=== PATIENT | male | born 1960 | race African-American/Black ===

== ENCOUNTER 2023-03-09 14:58 | Outpatient (AMB) | payer BC, SELFPAY ==
--- NOTE | 2023-03-09 15:04 | HO.NEPHOV_ITS ---
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 Accompanied by: Spouse Allergies Sulfa (Sulfonamide Antibiotics) Allergy (Verified 03/09/23 11:08) Hives lisinopril Allergy (Uncoded 03/09/23 11:08) Swelling Assessment & Plan Assessment & Plan (1) Essential (primary) hypertension: Code(s): I10 - Essential (primary) hypertension (2) Chronic kidney disease, stage 5: Code(s): N18.5 - Chronic kidney disease, stage 5 Orders: Orders PTHI Today I10 - Essential (primary) hypertension, N18.5 - Chronic kidney disease, stage 5 Vitamin D 25-OH Total Today I10 - Essential (primary) hypertension, N18.5 - Chronic kidney disease, stage 5 Phosphorus Today I10 - Essential (primary) hypertension, N18.5 - Chronic kidney disease, stage 5 Electrolytes Today I10 - Essential (primary) hypertension, N18.5 - Chronic kidney disease, stage 5 Blood Urea Nitrogen Today I10 - Essential (primary) hypertension, N18.5 - Ch ronic kidney disease, stage 5 Creatinine Today I10 - Essential (primary) hypertension, N18.5 - Chronic kidney disease, stage 5 Calcium Today I10 - Essential (primary) hypertension, N18.5 - Chronic kidney disease, stage 5 Complete Blood Count Auto Diff Today I10 - Essential (primary) hypertension, N18.5 - Chronic kidney disease, stage 5 Coding Level of Care Code Est Pt Level 5 (12349) Diagnoses Essential (primary) hypertension I10 Chronic kidney disease, stage 5 N18.5 [facility] Medical History (Updated 03/09/23 @ 15:52 by Vinnie Mckoy MD) Essential (primary) hypertension Chronic kidney disease, stage 5 Social History (Updated 03/09/23 @ 15:10 by Madison Brock MA) Alcohol intake: never Patient Tobacco Use Status: Never used Tobacco Use of substances other than those prescribed or required for medical reasons: No
[2023-03-09 15:05] VITALS: BP 150/80; PULSE 97; BMI 32.7
== END 2023-03-09 15:57 | disposition home or self-care (01) ==
PROVIDERS: PCP Internal Medicine; Visit Provider Internal Medicine Nephrology
DX: I12.0 Hypertensive chronic kidney disease with stage 5 chronic kidney disease or end stage renal disease (principal); N18.5 Chronic kidney disease, stage 5
CPT/HCPCS: 99215

== ENCOUNTER → 2023-03-09 14:58 | Outpatient (BNVA) | payer BC, SELFPAY | PROVIDERS: PCP Internal Medicine; Visit Provider Internal Medicine Nephrology ==

== ENCOUNTER 2023-08-22 10:57 | Outpatient (AMB) | payer BC, SELFPAY ==
[2023-08-22 11:21] VITALS: BP 130/84; BMI 28.7
--- NOTE | 2023-08-22 11:21 | HO.NEPHOV_ITS ---
Vital Signs 08/22/23 11:21 Height 6 ft Weight 211 lb 8 oz BMI 28.7 BP 130/84 Blood Pressure Location Lt brachial Position Sitting Intake Visit Reasons: Post Transplant/ Confirmed Supervisor Assembly Required: No Accompanied by: Spouse Allergies Sulfa (Sulfonamide Antibiotics) Allergy (Verified 09/05/23 09:54) Hives lisinopril Allergy (Uncoded 03/09/23 11:08) Swelling HPI Comments Details: I had the pleasure of seeing Bobo, accompanied by his who is now status post donor renal transplant on 05/12/2023. He had 0 panel reactive antibodies. Induction was done using Thymoglobulin. He had no delayed graft function and did not require renal replacement therapy. Postoperatively his renal ultrasound showed good flow and normal resistive indices. . Nuclear medicine scan showed a prompt flow to the kidney and findings were consistent with ATN. He had high blood pressure is postoperatively needing medications. He also developed shortness of breath and tachycardia with increasing abdominal distension postoperatively. Chest x-ray done at that time showed elevated right diaphragm concerning for either intra-abdominal or thoracic source. He underwent a CT chest abdomen and pelvis without IV contrast on 14 of May given his increasing oxygen requirements and tachycardia & it demonstrated a right hemidiaphragm elevation with some postsurgical inflammatory changes. He had positive Celine glabrata from the preservation fluid for which he was started on micafungin. He had a PICC line and received micafungin for 2 weeks posttransplant. CMV status of the donor was positive and he was positive as well. EBV status of the donor and recipient were positive. Hepatitis-C core antibody for the donor and recipient were negative. His BK virus PCR in the serum and urine were negative. His JJ stent postoperatively was removed on 06/19/2023. He had a prospera protocol on 08 of August which showed decreased risk for rejection. He also had a transplant biopsy on 26 of June for a creatinine of all than 2 which was negative for rejection. He has no history of DSA. He has been on Envarsus and mycophenolate. His Mycelex was discontinued on 06/01/2023 after he was started on ketoconazole. He remains on Bactrim and Valcyte which is going to be discontinued on 11/10/2023. He has lost a lot of weight but his weight is stabilizing. His appetite is poor but better. He does not have any tremor. He denies urinary symptoms, edema, tremor. He is compliant with his medications. COUNTS INCLUDE 234 BEDS AT THE [facility] Medical History (Updated 03/09/23 @ 15:52 by Vinnie Mckoy MD) Essential (primary) hypertension Chronic kidney disease, stage 5 Surgical History (Updated 09/05/23 @ 09:55 by Madison Brock MA) Kidney transplanted Social History Alcohol intake: never Patient Tobacco Use Status: Never used Tobacco Physical Exam Vital Signs: Last Vital Signs BP 130/84 08/22/23 11:21 BMI result Body Mass Index 28.7 Const General: comfortable and no acute distress Orientation/consciousness: patient oriented x3 HEENT Head: Yes normocephalic Mouth: Normal oral and palatal mucosa present Eyes EOM: EOMs intact bilaterally Neck Neck: Yes supple Resp Auscultation: clear to auscultation bilaterally Cardio Jugular venous distension: no JVD Rate: regular rate GI Palpation (GI): Soft to palpation Auscultation: normal bowel sounds General: Yes no CVA tenderness Back/Spine/Pelvis Back: no CVA tenderness Skin General skin exam: no rashes or lesions noted Neuro General: patient oriented x3 and moves all extremities Extrem General: Yes no pedal edema Results Reviewed Nephrology Results: Hgb 9.9 g/dl (14.0-18.0) L 08/31/23 WBC 1.8 X10*3/uL (4.8-10.8) L 08/31/23 Plt Count 243 X10*3/uL (160-400) 08/31/23 Sodium 140 mmol/L (135-145) 08/31/23 Potassium 4.6 mmol/L (3.3-5.1) 08/31/23 Chloride 111 mmol/L (96-108) H 08/31/23 Carbon Dioxide 25 mmol/L (22-29) 08/31/23 BUN 18 mg/dL (9-16) H 08/31/23 Creatinine 2.30 mg/dL (0.5-1.4) H 08/31/23 Calcium 9.7 mg/dL (8.4-10.2) 08/31/23 PTH Intact 84.6 pg/mL (8.7-77.1) H 08/31/23 Assessment & Plan Assessment & Plan (1) Essential (primary) hypertension: Code(s): I10 - Essential (primary) hypertension Category: Medical (2) Renal transplant recipient: Code(s): Z94.0 - Kidney transplant status Category: Surgical Plan His transplant graft function has been stable with the last serum creatinine being 2.8. He does not have any proteinuria. His DSA was negative. His transplant ultrasound did not show any hydronephrosis. Transplant biopsy done on 06/26/2023 showed no rejection. He is on Envarsus and Myfortic. He has BK negative. He is on standard prophylaxis. His blood pressure is at goal. He maintains good hydration. I did not make any medication changes today. Follow- up lab work ordered. Time spent during the patient visit, retrieving data and documentation 55 minutes. Answered all questions. Orders: Orders Calcium 08/22/23 I10 - Essential (primary) hypertension, Z94.0 - Kidney transplant status Tacrolimus Prograf 08/22/23 I10 - Essential (primary) hypertension, Z94.0 - Kidney transplant status Parathyroid Hormone Intact 08/22/23 I10 - Essential (primary) hypertension, Z94.0 - Kidney transplant status Complete Blood Count Auto Diff 08/22/23 I10 - Essential (primary) hypertension, Z94.0 - Kidney transplant status Aspartate Amino Transferase 08/22/23 I10 - Essential (primary) hypertension, Z94.0 - Kidney transplant status Electrolytes 08/22/23 I10 - Essential (primary) hypertension, Z94.0 - Kidney transplant status Blood Urea Nitrogen 08/22/23 I10 - Essential (primary) hypertension, Z94.0 - Kidney transplant status Creatinine 08/22/23 I10 - Essential (primary) hypertension, Z94.0 - Kidney transplant status Alanine Aminotransferase 08/22/23 I10 - Essential (primary) hypertension, Z94.0 - Kidney transplant status Coding Level of Care Code Est Pt Level 5 (10728) Diagnoses Essential (primary) hypertension I10 Renal transplant recipient Z94.0
== END 2023-08-22 12:11 | disposition home or self-care (01) ==
PROVIDERS: PCP Internal Medicine; Visit Provider Internal Medicine Nephrology
DX: I10 Essential (primary) hypertension (principal); Z94.0 Kidney transplant status
CPT/HCPCS: 99215

== ENCOUNTER → 2023-08-22 10:57 | Outpatient (BNVA) | payer BC, SELFPAY | PROVIDERS: PCP Internal Medicine; Visit Provider Internal Medicine Nephrology ==

== ENCOUNTER 2023-08-31 09:53 | Outpatient (REF) | payer BC, SELFPAY ==
[2023-08-31 16:57] LABS: Hematocrit 32.3 % (42.0-52.0); Hemoglobin 9.9 g/dl (14.0-18.0); Mean Corpuscular HGB Conc 30.7 g/dl (31.0-36.0); Mean Corpuscular Hemoglobin 25.8 pg (27.0-33.0); Mean Corpuscular Volume 84.3 fL (80.0-98.0); Mean Platelet Volume 10.1 fL (9.4-12.4); Platelet Count 243 X10*3/uL (160-400); Red Blood Count 3.83 X10*6/uL (4.60-5.80); Red Cell Distribution Width 13.8 % (11.0-16.0)
[2023-08-31 17:00] LABS: WBC ABN SCTR FOR CBC 1
[2023-08-31 17:06] LABS: Alanine Aminotransferase 16 U/L (0-40); Anion Gap 9 (12-20); Aspartate Amino Transferase 18 U/L (5-37); Blood Urea Nitrogen 18 mg/dL (9-16); Calcium 9.7 mg/dL (8.4-10.2); Carbon Dioxide 25 mmol/L (22-29); Chloride 111 mmol/L (96-108); Estimated Glomerular Filt Rate 29; Potassium 4.6 mmol/L (3.3-5.1); Sodium 140 mmol/L (135-145)
[2023-08-31 17:52] LABS: Parathyroid Hormone Intact 84.6 pg/mL (8.7-77.1)
[2023-08-31 18:20] LABS: Band Neutrophils Percent 2 % (3-5); Lymphocytes Percent Manual 10 % (20-40); Monocytes Percent Manual 20 % (2-11); Neutrophils Percent Manual 68 % (45-73); Ovalocytes 1+ (5-14) /OIF
[2023-08-31 18:21] LABS: Burr Cells 1+ (0-2) /OIF; Platelet Estimate NORMAL (NORMAL); Platelet Morphology Comment NORMAL; RBC Morphology NOTED; Schistocytes 1+ (0-2) /OIF
[2023-08-31 18:22] LABS: Lymphocytes Absolute Manual 0.2 X10*3/uL (1.2-4.9); Monocytes Absolute Manual 0.4 X10*3/uL (0.1-1.2); Neutrophils Absolute Manual 1.3 X10*3/uL (2.0-8.3); White Blood Count 1.8 X10*3/uL (4.8-10.8)
[2023-09-01 12:54] LABS: Tacrolimus Prograf 5.6 mcg/L
== END 2023-08-31 09:54 | disposition home or self-care (01) ==
LOC: HO.HKASLDS 09:53
PROVIDERS: Visit Provider Internal Medicine Nephrology
DX: I10 Essential (primary) hypertension (principal); Z94.0 Kidney transplant status
CPT/HCPCS: 36415; 80051; 80197; 82310; 82565; 83970; 84450; 84460; 84520; 85007; 85027

== ENCOUNTER 2023-09-05 09:34 | Outpatient (AMB) | payer BC, SELFPAY ==
[2023-09-05 09:51] VITALS: BP 130/88; PULSE 91; O2SAT 96; BMI 28.8
--- NOTE | 2023-09-05 09:51 | HO.NEPHOV ---
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 He had 0 panel reactive antibodies. Induction was done using Thymoglobulin. He had no delayed graft function and did not require renal replacement therapy. Postoperatively his renal ultrasound showed good flow and normal resistive indices. . Nuclear medicine scan showed a prompt flow to the kidney and findings were consistent with ATN. He had high blood pressure is postoperatively needing medications. He also developed shortness of breath and tachycardia with increasing abdominal distension postoperatively. Chest x-ray done at that time showed elevated right diaphragm concerning for either intra-abdominal or thoracic source. He underwent a CT chest abdomen and pelvis without IV contrast on 14 of May given his increasing oxygen requirements and tachycardia & it demonstrated a right hemidiaphragm elevation with some postsurgical inflammatory changes. He had positive Celine glabrata from the preservation fluid for which he was started on micafungin. He had a PICC line and received micafungin for 2 weeks posttransplant. CMV status of the donor was positive and he was positive as well. EBV status of the donor and recipient were positive. Hepatitis-C core antibody for the donor and recipient were negative. His BK virus PCR in the serum and urine were negative. His JJ stent postoperatively was removed on 06/19/2023. He had a prospera protocol on 08 of August which showed decreased risk for rejection. He also had a transplant biopsy on 26 of June for a creatinine of all than 2 which was negative for rejection. He has no history of DSA. He has been on Envarsus and mycophenolate. His Mycelex was discontinued on 06/01/2023 after he was started on ketoconazole. He remains on Bactrim and Valcyte which is going to be discontinued on 11/10/2023. He has lost a lot of weight but his weight is stabilizing. His appetite is poor but better. He does not have any tremor. He denies urinary symptoms, edema, tremor. He is compliant with his medications.His renal functions are improving. His appetite is better. [facility] Medical History (Updated 09/06/23 @ 10:24 by Vinnie Mckoy MD) Essential (primary) hypertension Chronic kidney disease, stage 5 Surgical History (Updated 09/05/23 @ 09:55 by Madison Brock MA) Kidney transplanted Social History Alcohol intake: never Patient Tobacco Use Status: Never used Tobacco Physical Exam Vital Signs: Last Vital Signs Pulse 91 09/05/23 09:51 BP 130/88 09/05/23 09:51 Pulse Ox 96 09/05/23 09:51 Oxygen Delivery Method Room Air 09/05/23 09:51 BMI result Body Mass Index 28.8 Const General: comfortable and no acute distress Orientation/consciousness: patient oriented x3 HEENT Head: Yes normocephalic Mouth: Normal oral and palatal mucosa present Eyes EOM: EOMs intact bilaterally Neck Neck: Yes supple Resp Auscultation: clear to auscultation bilaterally Cardio Jugular venous distension: no JVD Rate: regular rate GI Palpation (GI): Soft to palpation Auscultation: normal bowel sounds General: Yes no CVA tenderness Back/Spine/Pelvis Back: no CVA tenderness Skin General skin exam: no rashes or lesions noted Neuro General: patient oriented x3 and moves all extremities Extrem General: Yes no pedal edema Results Reviewed Nephrology Results: Hgb 9.9 g/dl (14.0-18.0) L 08/31/23 WBC 1.8 X10*3/uL (4.8-10.8) L 08/31/23 Plt Count 243 X10*3/uL (160-400) 08/31/23 Sodium 140 mmol/L (135-145) 08/31/23 Potassium 4.6 mmol/L (3.3-5.1) 08/31/23 Chloride 111 mmol/L (96-108) H 08/31/23 Carbon Dioxide 25 mmol/L (22-29) 08/31/23 BUN 18 mg/dL (9-16) H 08/31/23 Creatinine 2.30 mg/dL (0.5-1.4) H 08/31/23 Calcium 9.7 mg/dL (8.4-10.2) 08/31/23 PTH Intact 84.6 pg/mL (8.7-77.1) H 08/31/23 Assessment & Plan Assessment & Plan (1) Renal transplant recipient: Code(s): Z94.0 - Kidney transplant status Category: Medical (2) Essential (primary) hypertension: Code(s): I10 - Essential (primary) hypertension Category: Medical (3) CKD stage 3a, GFR 45-59 ml/min: Code(s): N18.31 - Chronic kidney disease, stage 3a Category: Medical Plan His transplant graft function has improved with the last serum creatinine being 2.3. He does not have any proteinuria. His DSA was negative. His transplant ultrasound did not show any hydronephrosis. Transplant biopsy done on 06/26/2023 showed no rejection. He is on Envarsus and Myfortic. He has BK negative. He is on standard prophylaxis. I increased his tacrolimus to 5 mg daily. His blood pressure is at goal. He maintains good hydration. I did not make any other medication changes today. Follow-up lab work ordered. Will need annual dermatology appointment. Answered all his and his 's questions Orders: Orders Tacrolimus Prograf 09/05/23 I10 - Essential (primary) hypertension, Z94.0 - Kidney transplant status Complete Blood Count Auto Diff 09/05/23 I10 - Essential (primary) hypertension, Z94.0 - Kidney transplant status Blood Urea Nitrogen 09/05/23 I10 - Essential (primary) hypertension, Z94.0 - Kidney transplant status Calcium 09/05/23 I10 - Essential (primary) hypertension, Z94.0 - Kidney transplant status Creatinine 09/05/23 I10 - Essential (primary) hypertension, Z94.0 - Kidney transplant status Electrolytes 09/05/23 I10 - Essential (primary) hypertension, Z94.0 - Kidney transplant status Phosphorus 09/05/23 I10 - Essential (primary) hypertension, Z94.0 - Kidney transplant status Magnesium 09/05/23 I10 - Essential (primary) hypertension, Z94.0 - Kidney transplant status Coding Level of Care Code Est Pt Level 4 (81991) Diagnoses Renal transplant recipient Z94.0 Essential (primary) hypertension I10 CKD stage 3a, GFR 45-59 ml/min N18.31
== END 2023-09-05 10:27 | disposition home or self-care (01) ==
PROVIDERS: PCP Internal Medicine; Visit Provider Internal Medicine Nephrology
DX: Z94.0 Kidney transplant status (principal); I10 Essential (primary) hypertension; N18.31 Chronic kidney disease, stage 3a
CPT/HCPCS: 99214

== ENCOUNTER → 2023-09-05 09:34 | Outpatient (BNVA) | payer BC, SELFPAY | PROVIDERS: PCP Internal Medicine; Visit Provider Internal Medicine Nephrology ==

== ENCOUNTER 2023-09-12 09:31 | Outpatient (REF) | payer BC, SELFPAY ==
[2023-09-12 11:55] LABS: Hematocrit 31.7 % (42.0-52.0); Hemoglobin 9.7 g/dl (14.0-18.0); Mean Corpuscular HGB Conc 30.6 g/dl (31.0-36.0); Mean Corpuscular Hemoglobin 25.3 pg (27.0-33.0); Mean Corpuscular Volume 82.8 fL (80.0-98.0); Mean Platelet Volume 10.6 fL (9.4-12.4); Red Blood Count 3.83 X10*6/uL (4.60-5.80); Red Cell Distribution Width 13.9 % (11.0-16.0)
[2023-09-12 12:05] LABS: WBC ABN SCTR FOR CBC 1
[2023-09-12 12:13] LABS: Anion Gap 14 (12-20); Blood Urea Nitrogen 26 mg/dL (9-16); Calcium 9.5 mg/dL (8.4-10.2); Carbon Dioxide 21 mmol/L (22-29); Chloride 108 mmol/L (96-108); Estimated Glomerular Filt Rate 22; Magnesium 1.5 mg/dL (1.6-2.6); Phosphorus 2.9 mg/dL (2.7-4.5); Potassium 4.2 mmol/L (3.3-5.1); Sodium 139 mmol/L (135-145)
[2023-09-12 13:02] LABS: Band Neutrophils Percent 1 % (3-5); Basophils Percent Manual 2 % (0-2); Eosinophils Percent Manual 3 % (0-4); Lymphocytes Percent Manual 6 % (20-40); Metamyelocytes Percent 4 %; Monocytes Percent Manual 12 % (2-11); Neutrophils Percent Manual 72 % (45-73)
[2023-09-12 13:16] LABS: Platelet Estimate NORMAL (NORMAL)
[2023-09-12 13:17] LABS: Platelet Morphology Comment NORMAL
[2023-09-12 13:19] LABS: RBC Morphology NORMAL
[2023-09-12 13:20] LABS: Lymphocytes Absolute Manual 0.1 X10*3/uL (1.2-4.9); Metamyelocytes Absolute 0.1 X10*3/uL; Monocytes Absolute Manual 0.2 X10*3/uL (0.1-1.2); Neutrophils Absolute Manual 0.9 X10*3/uL (2.0-8.3); Platelet Count 159 X10*3/uL (160-400); White Blood Count 1.3 X10*3/uL (4.8-10.8)
[2023-09-13 14:38] LABS: Tacrolimus Prograf 6.1 mcg/L
== END 2023-09-12 09:32 | disposition home or self-care (01) ==
LOC: HO.HKASLDS 09:31
PROVIDERS: Visit Provider Internal Medicine Nephrology
DX: Z94.0 Kidney transplant status (principal); I10 Essential (primary) hypertension
CPT/HCPCS: 36415; 80051; 80197; 82310; 82565; 83735; 84100; 84520; 85007; 85025; 85027

== ENCOUNTER 2023-09-14 10:19 | Outpatient (AMB) | payer BC, SELFPAY ==
[2023-09-14 10:30] VITALS: BP 124/70; PULSE 102; O2SAT 99; BMI 28.5
--- NOTE | 2023-09-14 10:30 | HO.NEPHOV ---
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 He had 0 panel reactive antibodies. Induction was done using Thymoglobulin. He had no delayed graft function and did not require renal replacement therapy. Postoperatively his renal ultrasound showed good flow and normal resistive indices. . Nuclear medicine scan showed a prompt flow to the kidney and findings were consistent with ATN. He had high blood pressure is postoperatively needing medications. He also developed shortness of breath and tachycardia with increasing abdominal distension postoperatively. Chest x-ray done at that time showed elevated right diaphragm concerning for either intra-abdominal or thoracic source. He underwent a CT chest abdomen and pelvis without IV contrast on 14 of May given his increasing oxygen requirements and tachycardia & it demonstrated a right hemidiaphragm elevation with some postsurgical inflammatory changes. He had positive Celine glabrata from the preservation fluid for which he was started on micafungin. He had a PICC line and received micafungin for 2 weeks posttransplant. CMV status of the donor was positive and he was positive as well. EBV status of the donor and recipient were positive. Hepatitis-C core antibody for the donor and recipient were negative. His BK virus PCR in the serum and urine were negative. His JJ stent postoperatively was removed on 06/19/2023. He had a prospera protocol on 08 of August which showed decreased risk for rejection. He also had a transplant biopsy on 26 of June for a creatinine of all than 2 which was negative for rejection. He has no history of DSA. He has been on Envarsus and mycophenolate. His Mycelex was discontinued on 06/01/2023 after he was started on ketoconazole. He remains on Bactrim and Valcyte which is going to be discontinued on 11/10/2023. He has lost a lot of weight but his weight is stabilizing. His appetite is poor but better. He does not have any tremor. He denies urinary symptoms, edema, tremor. He is compliant with his medications. [facility] Medical History (Updated 09/14/23 @ 10:48 by Vinnie Mckoy MD) Essential (primary) hypertension Chronic kidney disease, stage 5 Surgical History Kidney transplanted Social History Alcohol intake: never Patient Tobacco Use Status: Never used Tobacco Physical Exam Vital Signs: Last Vital Signs Pulse 102 H 09/14/23 10:30 BP 124/70 09/14/23 10:30 Pulse Ox 99 09/14/23 10:30 Oxygen Delivery Method Room Air 09/14/23 10:30 BMI result Body Mass Index 28.5 Const General: comfortable and no acute distress Orientation/consciousness: patient oriented x3 HEENT Head: Yes normocephalic Mouth: Normal oral and palatal mucosa present Eyes EOM: EOMs intact bilaterally Neck Neck: Yes supple Resp Auscultation: clear to auscultation bilaterally Cardio Jugular venous distension: no JVD Rate: regular rate GI Palpation (GI): Soft to palpation Auscultation: normal bowel sounds General: Yes no CVA tenderness Back/Spine/Pelvis Back: no CVA tenderness Skin General skin exam: no rashes or lesions noted Neuro General: patient oriented x3 and moves all extremities Extrem General: Yes no pedal edema Results Reviewed Nephrology Results: Hgb 9.7 g/dl (14.0-18.0) L 09/12/23 WBC 1.3 X10*3/uL (4.8-10.8) L 09/12/23 Plt Count 159 X10*3/uL (160-400) L 09/12/23 Sodium 139 mmol/L (135-145) 09/12/23 Potassium 4.2 mmol/L (3.3-5.1) 09/12/23 Chloride 108 mmol/L (96-108) 09/12/23 Carbon Dioxide 21 mmol/L (22-29) L 09/12/23 BUN 26 mg/dL (9-16) H 09/12/23 Creatinine 2.89 mg/dL (0.5-1.4) H 09/12/23 Calcium 9.5 mg/dL (8.4-10.2) 09/12/23 Phosphorus 2.9 mg/dL (2.7-4.5) 09/12/23 PTH Intact 84.6 pg/mL (8.7-77.1) H 08/31/23 Assessment & Plan Assessment & Plan (1) CKD stage 3a, GFR 45-59 ml/min: Code(s): N18.31 - Chronic kidney disease, stage 3a Category: Medical (2) Renal transplant recipient: Code(s): Z94.0 - Kidney transplant status Category: Surgical (3) Essential (primary) hypertension: Code(s): I10 - Essential (primary) hypertension Category: Medical (4) Hypomagnesemia: Code(s): E83.42 - Hypomagnesemia Category: Medical Plan His transplant graft function had been stable but has gone up marginally at the last lab draw . He does not have any proteinuria. His DSA was negative. His transplant ultrasound did not show any hydronephrosis. Transplant biopsy done on 06/26/2023 showed no rejection. He is on Envarsus and Myfortic. He has BK negative. He is on standard prophylaxis. I increased his tacrolimus to 5 mg daily alternating with 6 mg sol other day. I increased his Mg supplements to tid. His blood pressure is at goal. He maintains good hydration. I did not make any other medication changes today. Follow-up lab work ordered. Will need annual dermatology appointment. Answered all his and his 's questions Orders: Orders Creatinine Today E83.42 - Hypomagnesemia, I10 - Essential (primary) hypertension, N18.31 - Chronic kidney disease, stage 3a, Z94.0 - Kidney transplant status Blood Urea Nitrogen Today E83.42 - Hypomagnesemia, I10 - Essential (primary) hypertension, N18.31 - Chronic kidney disease, stage 3a, Z94.0 - Kidney transplant status Electrolytes Today E83.42 - Hypomagnesemia, I10 - Essential (primary) hypertension, N18.31 - Chronic kidney disease, stage 3a, Z94.0 - Kidney transplant status Complete Blood Count Auto Diff 2 Weeks E83.42 - Hypomagnesemia, I10 - Essential (primary) hypertension, N18.31 - Chronic kidney disease, stage 3a, Z94.0 - Kidney transplant status Tacrolimus Prograf Today E83.42 - Hypomagnesemia, I10 - Essential (primary) hypertension, N18.31 - Chronic kidney disease, stage 3a, Z94.0 - Kidney transplant status Magnesium Today E83.42 - Hypomagnesemia, I10 - Essential (primary) hypertension, N18.31 - Chronic kidney disease, stage 3a, Z94.0 - Kidney transplant status Coding Level of Care Code Est Pt Level 4 (14007) Diagnoses CKD stage 3a, GFR 45-59 ml/min N18.31 Renal transplant recipient Z94.0 Essential (primary) hypertension I10 Hypomagnesemia E83.42
== END 2023-09-14 10:55 | disposition home or self-care (01) ==
LOC: HO.HKAS 10:19
PROVIDERS: PCP Internal Medicine; Visit Provider Internal Medicine Nephrology
DX: N18.31 Chronic kidney disease, stage 3a (principal); Z94.0 Kidney transplant status; I10 Essential (primary) hypertension; E83.42 Hypomagnesemia
CPT/HCPCS: 99214

== ENCOUNTER → 2023-09-14 10:19 | Outpatient (BNVA) | payer BC, SELFPAY | PROVIDERS: PCP Internal Medicine; Visit Provider Internal Medicine Nephrology ==

== ENCOUNTER 2023-09-26 10:54 | Outpatient (REF) | payer BC, SELFPAY ==
[2023-09-26 19:28] LABS: Hemoglobin 8.6 g/dl (14.0-18.0); Mean Corpuscular HGB Conc 30.7 g/dl (31.0-36.0); Mean Corpuscular Hemoglobin 25.4 pg (27.0-33.0); Mean Corpuscular Volume 82.6 fL (80.0-98.0); Mean Platelet Volume 10.4 fL (9.4-12.4); Platelet Count 208 X10*3/uL (160-400); Red Blood Count 3.39 X10*6/uL (4.60-5.80); Red Cell Distribution Width 13.7 % (11.0-16.0)
[2023-09-26 19:37] LABS: Anion Gap 13 (12-20); Blood Urea Nitrogen 29 mg/dL (9-16); Carbon Dioxide 21 mmol/L (22-29); Chloride 110 mmol/L (96-108); Estimated Glomerular Filt Rate 23; Magnesium 1.7 mg/dL (1.6-2.6); Potassium 4.3 mmol/L (3.3-5.1); Sodium 140 mmol/L (135-145)
[2023-09-26 19:42] LABS: WBC ABN SCTR FOR CBC 1
[2023-09-26 19:43] LABS: White Blood Count 0.7 X10*3/uL (4.8-10.8)
[2023-09-26 20:24] LABS: Atypical Lymphs Percent Manual 2 % (0-6); Band Neutrophils Percent 5 % (3-5); Basophils Percent Manual 3 % (0-2); Eosinophils Percent Manual 2 % (0-4); Lymphocytes Absolute Manual 0.1 X10*3/uL (1.2-4.9); Lymphocytes Percent Manual 21 % (20-40); Monocytes Absolute Manual 0.3 X10*3/uL (0.1-1.2); Monocytes Percent Manual 49 % (2-11); Neutrophils Absolute Manual 0.2 X10*3/uL (2.0-8.3); Neutrophils Percent Manual 18 % (45-73)
[2023-09-26 20:26] LABS: RBC Morphology NORMAL; Toxic Granulation PRESENT
[2023-09-26 20:27] LABS: Platelet Estimate NORMAL (NORMAL); Platelet Morphology Comment NORMAL
[2023-09-28 14:58] LABS: Tacrolimus Prograf 6.1 mcg/L
== END 2023-09-26 10:55 | disposition home or self-care (01) ==
LOC: HO.HKASLDS 10:54
PROVIDERS: Visit Provider Internal Medicine Nephrology
DX: I10 Essential (primary) hypertension (principal); Z94.0 Kidney transplant status; N18.31 Chronic kidney disease, stage 3a; E83.42 Hypomagnesemia
CPT/HCPCS: 36415; 80051; 80197; 82565; 83735; 84520; 85007; 85025; 85027

== ENCOUNTER 2023-09-28 10:39 | Outpatient (AMB) | payer BC, SELFPAY ==
--- NOTE | 2023-09-28 10:46 | HO.NEPHOV_ITS ---
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 He had 0 panel reactive antibodies. Induction was done using Thymoglobulin. He had no delayed graft function and did not require renal replacement therapy. Postoperatively his renal ultrasound showed good flow and normal resistive indices. . Nuclear medicine scan showed a prompt flow to the kidney and findings were consistent with ATN. He had high blood pressure is postoperatively needing medications. He also developed shortness of breath and tachycardia with increasing abdominal distension postoperatively. Chest x-ray done at that time showed elevated right diaphragm concerning for either intra-abdominal or thoracic source. He underwent a CT chest abdomen and pelvis without IV contrast on 14 of May given his increasing oxygen requirements and tachycardia & it demonstrated a right hemidiaphragm elevation with some postsurgical inflammatory changes. He had positive Celine glabrata from the preservation fluid for which he was started on micafungin. He had a PICC line and received micafungin for 2 weeks posttransplant. CMV status of the donor was positive and he was positive as well. EBV status of the donor and recipient were positive. Hepatitis-C core an tibody for the donor and recipient were negative. His BK virus PCR in the serum and urine were negative. His JJ stent postoperatively was removed on 06/19/2023. He had a prospera protocol on 08 of August which showed decreased risk for rejection. He also had a transplant biopsy on 26 of June for a creatinine of all than 2 which was negative for rejection. He has no history of DSA. He has been on Envarsus and mycophenolate. His Mycelex was discontinued on 06/01/2023 after he was started on ketoconazole. He remains on Bactrim and Valcyte which is going to be discontinued on 11/10/2023. He has lost a lot of weight but his weight is stabilizing. His appetite is poor but better. He does not have any tremor. He denies urinary symptoms, edema, tremor. He is compliant with his medications. He has been having leukopenia and his mycophenolate has been put on hold. He is off Valcyte. He just came back from vacation. He has lost more weight. [facility] Medical History (Updated 09/14/23 @ 10:48 by Vinnie Mckoy MD) Essential (primary) hypertension Chronic kidney disease, stage 5 Surgical History Kidney transplanted Social History Alcohol intake: never Patient Tobacco Use Status: Never used Tobacco Physical Exam Vital Signs: Last Vital Signs Pulse 95 09/28/23 10:47 BP 122/80 09/28/23 10:47 Pulse Ox 100 09/28/23 10:47 Oxygen Delivery Method Room Air 09/28/23 10:47 BMI result Body Mass Index 27.9 Const General: comfortable and no acute distress Orientation/consciousness: patient oriented x3 HEENT Head: Yes normocephalic Mouth: Normal oral and palatal mucosa present Eyes EOM: EOMs intact bilaterally Neck Neck: Yes supple Resp Auscultation: clear to auscultation bilaterally Cardio Jugular venous distension: no JVD Rate: regular rate GI Palpation (GI): Soft to palpation Auscultation: normal bowel sounds General: Yes no CVA tenderness Back/Spine/Pelvis Back: no CVA tenderness Skin General skin exam: no rashes or lesions noted Neuro General: patient oriented x3 and moves all extremities Extrem General: Yes no pedal edema Results Reviewed Nephrology Results: Hgb 8.6 g/dl (14.0-18.0) L 09/26/23 WBC 0.7 X10*3/uL (4.8-10.8) L* 09/26/23 Plt Count 208 X10*3/uL (160-400) 09/26/23 Sodium 140 mmol/L (135-145) 09/26/23 Potassium 4.3 mmol/L (3.3-5.1) 09/26/23 Chloride 110 mmol/L (96-108) H 09/26/23 Carbon Dioxide 21 mmol/L (22-29) L 09/26/23 BUN 29 mg/dL (9-16) H 09/26/23 Creatinine 2.87 mg/dL (0.5-1.4) H 09/26/23 Calcium 9.5 mg/dL (8.4-10.2) 09/12/23 Phosphorus 2.9 mg/dL (2.7-4.5) 09/12/23 PTH Intact 84.6 pg/mL (8.7-77.1) H 08/31/23 Assessment & Plan Assessment & Plan (1) Essential (primary) hypertension: Code(s): I10 - Essential (primary) hypertension Category: Medical (2) Renal transplant recipient: Code(s): Z94.0 - Kidney transplant status Category: Surgical (3) CKD stage 3a, GFR 45-59 ml/min: Code(s): N18.31 - Chronic kidney disease, stage 3a Category: Medical (4) Hypomagnesemia: Code(s): E83.42 - Hypomagnesemia Category: Medical Plan His transplant graft function had been stable . He does not have any proteinuria. His DSA was negative. His transplant ultrasound did not show any hydronephrosis. Transplant biopsy done on 06/26/2023 showed no rejection. He is on Envarsus and Myfortic. Myfortic has been put on hold given leukopenia. He has been prescribed Neupogen. He has not taking Valcyte. After the weekend he will restart Myfortic at 360 mg b.i.d which will be reduced even further based on evolving data. He has BK negative. He is on standard prophylaxis. His blood pressure is at goal. He maintains good hydration. I did not make any other medication changes today. Follow-up lab work ordered. Will need annual dermatology appointment. Answered all his and his 's questions Orders: Orders Complete Blood Count Auto Diff 2 Weeks E83.42 - Hypomagnesemia, I10 - Essential (primary) hypertension, N18.31 - Chronic kidney disease, stage 3a, Z94.0 - Kidney transplant status Electrolytes Today E83.42 - Hypomagnesemia, I10 - Essential (primary) hypertension, N18.31 - Chronic kidney disease, stage 3a, Z94.0 - Kidney transplant status Blood Urea Nitrogen Today E83.42 - Hypomagnesemia, I10 - Essential (primary) hypertension, N18.31 - Chronic kidney disease, stage 3a, Z94.0 - Kidney transplant status Creatinine Today E83.42 - Hypomagnesemia, I10 - Essential (primary) hypertension, N18.31 - Chronic kidney disease, stage 3a, Z94.0 - Kidney transplant status Tacrolimus Prograf Today E83.42 - Hypomagnesemia, I10 - Essential (primary) hypertension, N18.31 - Chronic kidney disease, stage 3a, Z94.0 - Kidney transp lant status Coding Level of Care Code Est Pt Level 4 (12239) Diagnoses Essential (primary) hypertension I10 Renal transplant recipient Z94.0 CKD stage 3a, GFR 45-59 ml/min N18.31 Hypomagnesemia E83.42
[2023-09-28 10:47] VITALS: BP 122/80; PULSE 95; O2SAT 100; BMI 27.9
== END 2023-09-28 11:30 | disposition home or self-care (01) ==
PROVIDERS: PCP Internal Medicine; Visit Provider Internal Medicine Nephrology
DX: I10 Essential (primary) hypertension (principal); Z94.0 Kidney transplant status; N18.31 Chronic kidney disease, stage 3a; E83.42 Hypomagnesemia
CPT/HCPCS: 99214

== ENCOUNTER → 2023-09-28 10:39 | Outpatient (BNVA) | payer BC, SELFPAY | PROVIDERS: PCP Internal Medicine; Visit Provider Internal Medicine Nephrology ==

== ENCOUNTER 2023-10-05 09:36 | Outpatient (REF) | payer BC, SELFPAY ==
[2023-10-05 17:33] LABS: Hematocrit 25.9 % (42.0-52.0); Hemoglobin 7.8 g/dl (14.0-18.0); Mean Corpuscular HGB Conc 30.1 g/dl (31.0-36.0); Mean Corpuscular Hemoglobin 24.6 pg (27.0-33.0); Mean Corpuscular Volume 81.7 fL (80.0-98.0); Mean Platelet Volume 11.2 fL (9.4-12.4); Platelet Count 112 X10*3/uL (160-400); Red Blood Count 3.17 X10*6/uL (4.60-5.80); Red Cell Distribution Width 14.5 % (11.0-16.0)
[2023-10-05 17:42] LABS: White Blood Count 1.6 X10*3/uL (4.8-10.8)
[2023-10-05 17:53] LABS: Anion Gap 14 (12-20); Blood Urea Nitrogen 40 mg/dL (9-16); Carbon Dioxide 21 mmol/L (22-29); Chloride 110 mmol/L (96-108); Estimated Glomerular Filt Rate 19; Potassium 4.4 mmol/L (3.3-5.1); Sodium 141 mmol/L (135-145)
[2023-10-05 18:52] LABS: SLIDE REVIEW MANUAL DIFF
[2023-10-05 19:17] LABS: Atypical Lymphs Percent Manual 2 % (0-6); Band Neutrophils Percent 0 % (3-5); Basophils Percent Manual 3 % (0-2); Eosinophils Percent Manual 1 % (0-4); Lymphocytes Absolute Manual 0.5 X10*3/uL (1.2-4.9); Lymphocytes Percent Manual 33 % (20-40); Monocytes Absolute Manual 0.8 X10*3/uL (0.1-1.2); Monocytes Percent Manual 51 % (2-11); Neutrophils Absolute Manual 0.2 X10*3/uL (2.0-8.3); Neutrophils Percent Manual 10 % (45-73); Nucleated Red Blood Cells 1 /100WBC (0-0)
[2023-10-05 19:18] LABS: Large Platelet PRESENT; RBC Morphology NORMAL
[2023-10-05 19:19] LABS: Platelet Estimate SLIGHTLY DECREASED (NORMAL); Platelet Morphology Comment NOTE; Toxic Granulation PRESENT
== END 2023-10-05 09:37 | disposition home or self-care (01) ==
LOC: HO.HKASLDS 09:36
PROVIDERS: Visit Provider Internal Medicine Nephrology
DX: E83.42 Hypomagnesemia (principal); N18.31 Chronic kidney disease, stage 3a; Z94.0 Kidney transplant status; I12.9 Hypertensive chronic kidney disease with stage 1 through stage 4 chronic kidney disease, or unspecified chronic kidney disease
CPT/HCPCS: 36415; 80051; 80197; 82565; 84520; 85007; 85027

== ENCOUNTER 2023-10-10 10:46 | Outpatient (AMB) | payer BC, SELFPAY ==
--- NOTE | 2023-10-10 10:52 | HO.NEPHOV ---
Vital Signs 10/10/23 11:00 Height 6 ft Weight 204 lb BMI 27.7 BP 130/70 Blood Pressure Location Lt brachial Position Sitting Pulse 72 Pulse Source Pulse Oximeter Pulse Oximetry (%) 98 Oxygen Delivery Method Room Air Intake Visit Reasons: 2 wks follow up/ Conf Final Application Reviewer Required: No Accompanied by: Spouse Allergies Sulfa (Sulfonamide Antibiotics) Allergy (Verified 10/10/23 11:03) Hives lisinopril Allergy (Uncoded 03/09/23 11:08) Swelling HPI Comments Details: I had the pleasure of seeing Bobo, accompanied by his who is now status post donor renal transplant on 05/12/2023. He had 0 panel reactive antibodies. Induction was done using Thymoglobulin. He had no delayed graft function and did not require renal replacement therapy. Postoperatively his renal ultrasound showed good flow and normal resistive indices. . Nuclear medicine scan showed a prompt flow to the kidney and findings were consistent with ATN. He had high blood pressure is postoperatively needing medications. He also developed shortness of breath and tachycardia with increasing abdominal distension postoperatively. Chest x-ray done at that time showed elevated right diaphragm concerning for either intra-abdominal or thoracic source. He underwent a CT chest abdomen and pelvis without IV contrast on 14 of May given his increasing oxygen requirements and tachycardia & it demonstrated a right hemidiaphragm elevation with some postsurgical inflammatory changes. He had positive Celine glabrata from the preservation fluid for which he was started on micafungin. He had a PICC line and received micafungin for 2 weeks posttransplant. CMV status of the donor was positive and he was positive as well. EBV status of the donor and recipient were positive. Hepatitis-C core antibody for the donor and recipient were negative. His BK virus PCR in the serum and urine were negative. His JJ stent postoperatively was removed on 06/19/2023. He had a prospera protocol on 08 of August which showed decreased risk for rejection. He also had a transplant biopsy on 26 of June for a creatinine of all than 2 which was negative for rejection. He has no history of DSA. He has been on Envarsus and mycophenolate. His Mycelex was discontinued on 06/01/2023 after he was started on ketoconazole. He remains on Bactrim and Valcyte which is going to be discontinued on 11/10/2023. He has lost a lot of weight but his weight is stabilizing. His appetite is poor but better. He does not have any tremor. He denies urinary symptoms, edema, tremor. He is compliant with his medications. He has been having leukopenia and his mycophenolate had been put on hold. He is off Valcyte. He has lost more weight. His serum creatinine has gone up recently [facility] Medical History (Updated 09/14/23 @ 10:48 by Vinnie Mckoy MD) Essential (primary) hypertension Chronic kidney disease, stage 5 Surgical History Kidney transplanted Social History Alcohol intake: never Patient Tobacco Use Status: Never used Tobacco Physical Exam Vital Signs: Last Vital Signs Pulse 72 10/10/23 11:00 BP 130/70 10/10/23 11:00 Pulse Ox 98 10/10/23 11:00 Oxygen Delivery Method Room Air 10/10/23 11:00 BMI result Body Mass Index 27.7 Const General: comfortable and no acute distress Orientation/consciousness: patient oriented x3 HEENT Head: Yes normocephalic Mouth: Normal oral and palatal mucosa present Eyes EOM: EOMs intact bilaterally Neck Neck: Yes supple Resp Auscultation: clear to auscultation bilaterally Cardio Jugular venous distension: no JVD Rate: regular rate GI Palpation (GI): Soft to palpation Auscultation: normal bowel sounds General: Yes no CVA tenderness Back/Spine/Pelvis Back: no CVA tenderness Skin General skin exam: no rashes or lesions noted Neuro General: patient oriented x3 and moves all extremities Extrem General: Yes no pedal edema Results Reviewed Nephrology Results: Hgb 7.8 g/dl (14.0-18.0) L 10/05/23 WBC 1.6 X10*3/uL (4.8-10.8) L 10/05/23 Plt Count 112 X10*3/uL (160-400) L 10/05/23 Sodium 141 mmol/L (135-145) 10/05/23 Potassium 4.4 mmol/L (3.3-5.1) 10/05/23 Chloride 110 mmol/L (96-108) H 10/05/23 Carbon Dioxide 21 mmol/L (22-29) L 10/05/23 BUN 40 mg/dL (9-16) H 10/05/23 Creatinine 3.34 mg/dL (0.5-1.4) H 10/05/23 Calcium 9.5 mg/dL (8.4-10.2) 09/12/23 Phosphorus 2.9 mg/dL (2.7-4.5) 09/12/23 PTH Intact 84.6 pg/mL (8.7-77.1) H 08/31/23 Assessment & Plan Assessment & Plan (1) CKD stage 3a, GFR 45-59 ml/min: Code(s): N18.31 - Chronic kidney disease, stage 3a Category: Medical (2) Renal transplant recipient: Code(s): Z94.0 - Kidney transplant status Category: Surgical (3) Essential (primary) hypertension: Code(s): I10 - Essential (primary) hypertension Category: Medical Plan His serum creatinine has gone up last week . He does not have any proteinuria. His DSA had been negative. His transplant ultrasound did not show any hydronephrosis. Transplant biopsy done on 06/26/2023 showed no rejection. He is on Envarsus and Myfortic. Myfortic has been put on hold given leukopenia which I restarted at a lower dose . He had been prescribed Neupogen and his WBC has improved. He has not taking Valcyte. He has BK negative. He is on standard prophylaxis. His blood pressure is at goal. He maintains good hydration.He is going to get Procrit at home today. I did not make any other medication changes today. Follow-up lab work ordered for tomorrow AM. Will need annual dermatology appointment. Answered all his and his 's questions Orders: Orders Magnesium Today I10 - Essential (primary) hypertension, N18.31 - Chronic kidney disease, stage 3a, Z94.0 - Kidney transplant status Electrolytes Today I10 - Essential (primary) hypertension, N18.31 - Chronic kidney disease, stage 3a, Z94.0 - Kidney transplant status IRON PROFILE Today I10 - Essential (primary) hypertension, N18.31 - Chronic kidney disease, stage 3a, Z94.0 - Kidney transplant status Creatinine Today I10 - Essential (primary) hypertension, N18.31 - Chronic kidney disease, stage 3a, Z94.0 - Kidney transplant status Blood Urea Nitrogen Today I10 - Essential (primary) hypertension, N18.31 - Chronic kidney disease, stage 3a, Z94.0 - Kidney transplant status Medications: New ketoconazole 200 mg PO DAILY 90 days 90 tabs 2RF Coding Level of Care Code Est Pt Level 4 (12588) Diagnoses CKD stage 3a, GFR 45-59 ml/min N18.31 Renal transplant recipient Z94.0 Essential (primary) hypertension I10
[2023-10-10 11:00] VITALS: BP 130/70; PULSE 72; O2SAT 98; BMI 27.7
== END 2023-10-10 11:56 | disposition home or self-care (01) ==
PROVIDERS: PCP Internal Medicine; Visit Provider Internal Medicine Nephrology
DX: N18.31 Chronic kidney disease, stage 3a (principal); Z94.0 Kidney transplant status; I10 Essential (primary) hypertension
CPT/HCPCS: 99214

== ENCOUNTER → 2023-10-10 10:46 | Outpatient (BNVA) | payer BC, SELFPAY | PROVIDERS: PCP Internal Medicine; Visit Provider Internal Medicine Nephrology ==

== ENCOUNTER 2023-10-10 11:47 | Outpatient (REF) | payer BC, SELFPAY ==
[2023-10-10 18:33] LABS: Anion Gap 13 (12-20); Blood Urea Nitrogen 25 mg/dL (9-16); Carbon Dioxide 21 mmol/L (22-29); Chloride 111 mmol/L (96-108); Estimated Glomerular Filt Rate 24; Iron 64 mcg/dL (45-160); Magnesium 1.8 mg/dL (1.6-2.6); Percent Iron Saturation 25 % (15-50); Sodium 140 mmol/L (135-145); Total Iron Binding Capacity 251 mcg/dL (228-428); Unsaturated Iron Binding 187 ug/dL
== END 2023-10-10 11:48 | disposition home or self-care (01) ==
LOC: HO.HKASLDS 11:47
PROVIDERS: Visit Provider Internal Medicine Nephrology
DX: Z12.9 Encounter for screening for malignant neoplasm, site unspecified (principal); N18.31 Chronic kidney disease, stage 3a; Z94.0 Kidney transplant status
CPT/HCPCS: 36415; 80051; 82565; 83540; 83735; 84520

== ENCOUNTER 2023-10-20 10:44 | Outpatient (REF) | payer BC, SELFPAY ==
[2023-10-20 11:17] LABS: MANUAL DIFF FLAG NO
[2023-10-20 11:53] LABS: Basophils Percent Auto 0.8 % (0-2); Eosinophils Percent Auto 0.3 % (0-4); Hematocrit 34.4 % (42.0-52.0); Hemoglobin 10.4 g/dl (14.0-18.0); Lymphocytes Absolute Auto 1.3 X10*3/uL (1.2-4.9); Lymphocytes Percent Auto 32.1 % (20-40); Mean Corpuscular HGB Conc 30.2 g/dl (31.0-36.0); Mean Corpuscular Hemoglobin 26.1 pg (27.0-33.0); Mean Corpuscular Volume 86.4 fL (80.0-98.0); Mean Platelet Volume 8.3 fL (9.4-12.4); Monocytes Absolute Auto 0.4 X10*3/uL (0.1-1.2); Monocytes Percent Auto 10.6 % (2-11); Neutrophils Absolute Auto 2.2 x10*3/uL (2.0-8.3); Neutrophils Percent Auto 56.2 % (45-73); Platelet Count 302 X10*3/uL (160-400); Red Blood Count 3.98 X10*6/uL (4.60-5.80); Red Cell Distribution Width 18.9 % (11.0-16.0)
[2023-10-20 12:22] LABS: Parathyroid Hormone Intact 103.2 pg/mL (8.7-77.1)
[2023-10-20 12:33] LABS: Anion Gap 12 (12-20); Blood Urea Nitrogen 32 mg/dL (9-16); Calcium 9.8 mg/dL (8.4-10.2); Carbon Dioxide 25 mmol/L (22-29); Chloride 108 mmol/L (96-108); Estimated Glomerular Filt Rate 21; Phosphorus 2.7 mg/dL (2.7-4.5); Potassium 4.9 mmol/L (3.3-5.1); Sodium 140 mmol/L (135-145)
[2023-10-20 12:51] LABS: Vitamin D 25-OH Total 36.8 ng/mL (>30)
== END 2023-10-20 10:45 | disposition home or self-care (01) ==
LOC: HO.LAB 10:44
PROVIDERS: PCP Internal Medicine; Visit Provider Internal Medicine Nephrology
DX: I12.0 Hypertensive chronic kidney disease with stage 5 chronic kidney disease or end stage renal disease (principal); N18.5 Chronic kidney disease, stage 5; Z94.0 Kidney transplant status
CPT/HCPCS: 36415; 80051; 82306; 82310; 82565; 83970; 84100; 84520; 85025

== ENCOUNTER 2023-10-24 10:48 | Outpatient (AMB) | payer BC, SELFPAY ==
[2023-10-24 11:07] VITALS: BP 130/80; BMI 28.0
--- NOTE | 2023-10-24 11:07 | HO.NEPHOV ---
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 He had 0 panel reactive antibodies. Induction was done using Thymoglobulin. He had no delayed graft function and did not require renal replacement therapy. Postoperatively his renal ultrasound showed good flow and normal resistive indices. . Nuclear medicine scan showed a prompt flow to the kidney and findings were consistent with ATN. He had high blood pressure is postoperatively needing medications. He also developed shortness of breath and tachycardia with increasing abdominal distension postoperatively. Chest x-ray done at that time showed elevated right diaphragm concerning for either intra-abdominal or thoracic source. He underwent a CT chest abdomen and pelvis without IV contrast on 14 of May given his increasing oxygen requirements and tachycardia & it demonstrated a right hemidiaphragm elevation with some postsurgical inflammatory changes. He had positive Celine glabrata from the preservation fluid for which he was started on micafungin. He had a PICC line and received micafungin for 2 weeks posttransplant. CMV status of the donor was positive and he was positive as well. EBV status of the donor and recipient were positive. Hepatitis-C core antibody for the donor and recipient were negative. His BK virus PCR in the serum and urine were negative. His JJ stent postoperatively was removed on 06/19/2023. He had a prospera protocol on 08 of August which showed decreased risk for rejection. He also had a transplant biopsy on 26 of June for a creatinine of all than 2 which was negative for rejection. He has no history of DSA. He has been on Envarsus and mycophenolate. His Mycelex was discontinued on 06/01/2023 after he was started on ketoconazole. He remains on Bactrim and Valcyte which is going to be discontinued on 11/10/2023. He has lost a lot of weight but his weight is stabilizing. His appetite is poor but better. He does not have any tremor. He denies urinary symptoms, edema, tremor. He is compliant with his medications. He has been having leukopenia and his mycophenolate had been put on hold. He is off Valcyte. He has lost more weight. His serum creatinine has gone up recently [facility] Medical History (Updated 09/14/23 @ 10:48 by Vinnie Mckoy MD) Essential (primary) hypertension Chronic kidney disease, stage 5 Surgical History Kidney transplanted Social History Alcohol intake: never Patient Tobacco Use Status: Never used Tobacco Physical Exam Vital Signs: Last Vital Signs BP 130/80 10/24/23 11:07 BMI result Body Mass Index 28.0 Const General: comfortable and no acute distress Orientation/consciousness: patient oriented x3 HEENT Head: Yes normocephalic Mouth: Normal oral and palatal mucosa present Eyes EOM: EOMs intact bilaterally Neck Neck: Yes supple Resp Auscultation: clear to auscultation bilaterally Cardio Jugular venous distension: no JVD Rate: regular rate GI Palpation (GI): Soft to palpation Auscultation: normal bowel sounds General: Yes no CVA tenderness Back/Spine/Pelvis Back: no CVA tenderness Skin General skin exam: no rashes or lesions noted Neuro General: patient oriented x3 and moves all extremities Extrem General: Yes no pedal edema Results Reviewed Nephrology Results: Hgb 10.4 g/dl (14.0-18.0) L 10/20/23 WBC 4.0 X10*3/uL (4.8-10.8) L 10/20/23 Plt Count 302 X10*3/uL (160-400) 10/20/23 Sodium 140 mmol/L (135-145) 10/20/23 Potassium 4.9 mmol/L (3.3-5.1) 10/20/23 Chloride 108 mmol/L (96-108) 10/20/23 Carbon Dioxide 25 mmol/L (22-29) 10/20/23 BUN 32 mg/dL (9-16) H 10/20/23 Creatinine 3.05 mg/dL (0.5-1.4) H 10/20/23 Calcium 9.8 mg/dL (8.4-10.2) 10/20/23 Phosphorus 2.7 mg/dL (2.7-4.5) 10/20/23 PTH Intact 103.2 pg/mL (8.7-77.1) H 10/20/23 Assessment & Plan Assessment & Plan (1) CKD stage 3a, GFR 45-59 ml/min: Code(s): N18.31 - Chronic kidney disease, stage 3a Category: Medical (2) Hypomagnesemia: Code(s): E83.42 - Hypomagnesemia Category: Medical (3) Renal transplant recipient: Code(s): Z94.0 - Kidney transplant status Category: Surgical (4) Essential (primary) hypertension: Code(s): I10 - Essential (primary) hypertension Category: Medical Plan His serum creatinine has gone up last week . He does not have any proteinuria. His DSA had been negative. His transplant ultrasound did not show any hydronephrosis. Transplant biopsy done on 06/26/2023 showed no rejection. He is on Envarsus and Myfortic. Myfortic has been put on hold given leukopenia which was restarted at a lower dose, which I plan to increase to 360 mg bid at the next visit . He was asked to restart Valcyte. He has BK negative. He is on standard prophylaxis. His blood pressure is at goal. He maintains good hydration. I did not make any other medication changes today. Follow-up lab work ordered for next week. Will need annual dermatology appointment. Answered all his questions Orders: Orders Complete Blood Count Auto Diff Today Z94.0 - Kidney transplant status Electrolytes Today Z94.0 - Kidney transplant status Tacrolimus Prograf Today Z94.0 - Kidney transplant status Creatinine Today Z94.0 - Kidney transplant status Blood Urea Nitrogen Today Z94.0 - Kidney transplant status Other Ref Test - Misc Today Z94.0 - Kidney transplant status Other Ref Test - Misc 1 Week N18.31 - Chronic kidney disease, stage 3a Coding Level of Care Code Est Pt Level 4 (80313) Diagnoses CKD stage 3a, GFR 45-59 ml/min N18.31 Hypomagnesemia E83.42 Renal transplant recipient Z94.0 Essential (primary) hypertension I10
== END 2023-10-24 11:39 | disposition home or self-care (01) ==
LOC: HO.HKAS 10:48
PROVIDERS: PCP Internal Medicine; Visit Provider Internal Medicine Nephrology
DX: N18.31 Chronic kidney disease, stage 3a (principal); E83.42 Hypomagnesemia; Z94.0 Kidney transplant status; I10 Essential (primary) hypertension
CPT/HCPCS: 99214

== ENCOUNTER → 2023-10-24 10:48 | Outpatient (BNVA) | payer BC, SELFPAY | PROVIDERS: PCP Internal Medicine; Visit Provider Internal Medicine Nephrology ==

== ENCOUNTER 2023-11-02 10:37 | Outpatient (REF) | payer BC, SELFPAY ==
[2023-11-02 17:53] LABS: MANUAL DIFF FLAG NO
[2023-11-02 18:04] LABS: Anion Gap 13 (12-20); Blood Urea Nitrogen 27 mg/dL (9-16); Carbon Dioxide 24 mmol/L (22-29); Chloride 108 mmol/L (96-108); Estimated Glomerular Filt Rate 22; Potassium 4.6 mmol/L (3.3-5.1); Sodium 140 mmol/L (135-145)
[2023-11-02 18:06] LABS: Basophils Percent Auto 0.3 % (0-2); Eosinophils Absolute Auto 0.1 X10*3/uL (0.0-0.4); Eosinophils Percent Auto 0.9 % (0-4); Hematocrit 36.9 % (42.0-52.0); Hemoglobin 11.5 g/dl (14.0-18.0); Imm Gran Abs Auto 0.01 X10*3/uL (0.00-0.03); Imm Gran Pct Auto 0.2 % (0.0-0.4); Lymphocytes Absolute Auto 1.3 X10*3/uL (1.2-4.9); Lymphocytes Percent Auto 21.5 % (20-40); Mean Corpuscular HGB Conc 31.2 g/dl (31.0-36.0); Mean Corpuscular Volume 83.3 fL (80.0-98.0); Mean Platelet Volume 9.8 fL (9.4-12.4); Monocytes Absolute Auto 0.4 X10*3/uL (0.1-1.2); Monocytes Percent Auto 6.3 % (2-11); Neutrophils Absolute Auto 4.1 x10*3/uL (2.0-8.3); Neutrophils Percent Auto 70.8 % (45-73); Platelet Count 256 X10*3/uL (160-400); Red Blood Count 4.43 X10*6/uL (4.60-5.80); Red Cell Distribution Width 17.2 % (11.0-16.0); White Blood Count 5.9 X10*3/uL (4.8-10.8)
== END 2023-11-02 10:38 | disposition home or self-care (01) ==
LOC: HO.HKASLDS 10:37
PROVIDERS: Visit Provider Internal Medicine Nephrology
DX: Z94.0 Kidney transplant status (principal); I10 Essential (primary) hypertension
CPT/HCPCS: 80051; 82565; 84520; 85025; 87799

== ENCOUNTER 2023-11-03 11:50 | Outpatient (AMB) | payer BC, SELFPAY ==
--- NOTE | 2023-11-03 11:52 | HO.NEPHOV ---
Vital Signs 11/03/23 11:56 Height 6 ft Weight 204 lb 4 oz BMI 27.7 BP 128/82 Blood Pressure Location Rt brachial Position Sitting Pulse 83 Pulse Source Pulse Oximeter Pulse Oximetry (%) 99 Oxygen Delivery Method Room Air Intake Visit Reasons: 1 wks follow up/ Conf Pharmacist Required: No Accompanied by: Spouse Allergies Sulfa (Sulfonamide Antibiotics) Allergy (Verified 11/03/23 11:54) Hives lisinopril Allergy (Uncoded 03/09/23 11:08) Swelling HPI Comments Details: I had the pleasure of seeing Bobo, accompanied by his who is now status post donor renal transplant on 05/12/2023. He had 0 panel reactive antibodies. Induction was done using Thymoglobulin. He had no delayed graft function and did not require renal replacement therapy. Postoperatively his renal ultrasound showed good flow and normal resistive indices. . Nuclear medicine scan showed a prompt flow to the kidney and findings were consistent with ATN. He had high blood pressure is postoperatively needing medications. He also developed shortness of breath and tachycardia with increasing abdominal distension postoperatively. Chest x-ray done at that time showed elevated right diaphragm concerning for either intra-abdominal or thoracic source. He underwent a CT chest abdomen and pelvis without IV contrast on 14 of May given his increasing oxygen requirements and tachycardia & it demonstrated a right hemidiaphragm elevation with some postsurgical inflammatory changes. He had positive Celine glabrata from the preservation fluid for which he was started on micafungin. He had a PICC line and received micafungin for 2 weeks posttransplant. CMV status of the donor was positive and he was positive as well. EBV status of the donor and recipient were positive. Hepatitis-C core antibody for the donor and recipient were negative. His BK virus PCR in the serum and urine were negative. His JJ stent postoperatively was removed on 06/19/2023. He had a prospera protocol on 08 of August which showed decreased risk for rejection. He also had a transplant biopsy on 26 of June for a creatinine of all than 2 which was negative for rejection. He has no history of DSA. He has been on Envarsus and mycophenolate. His Mycelex was discontinued on 06/01/2023 after he was started on ketoconazole. He remains on Bactrim and Valcyte which is going to be discontinued on 11/10/2023. He has lost a lot of weight but his weight is stabilizing. His appetite is poor but better. He does not have any tremor. He denies urinary symptoms, edema, tremor. He is compliant with his medications. His serum creatinine has improved marginally. He developed nausea on restarting Valcyte & was D/Royer [facility] Medical History (Updated 09/14/23 @ 10:48 by Vinnie Mckoy MD) Essential (primary) hypertension Chronic kidney disease, stage 5 Surgical History Kidney transplanted Social History Alcohol intake: never Patient Tobacco Use Status: Never used Tobacco Review of Systems Const All systems reviewed & are unremarkable except as noted in HPI and below Physical Exam Vital Signs: Last Vital Signs Pulse 83 11/03/23 11:56 BP 128/82 11/03/23 11:56 Pulse Ox 99 11/03/23 11:56 Oxygen Delivery Method Room Air 11/03/23 11:56 BMI result Body Mass Index 27.7 Const General: comfortable and no acute distress Orientation/consciousness: patient oriented x3 HEENT Head: Yes normocephalic Mouth: Normal oral and palatal mucosa present Eyes EOM: EOMs intact bilaterally Neck Neck: Yes supple Resp Auscultation: clear to auscultation bilaterally Cardio Jugular venous distension: no JVD Rate: regular rate GI Palpation (GI): Soft to palpation Auscultation: normal bowel sounds General: Yes no CVA tenderness Back/Spine/Pelvis Back: no CVA tenderness Skin General skin exam: no rashes or lesions noted Neuro General: patient oriented x3 and moves all extremities Extrem General: Yes no pedal edema Results Reviewed Nephrology Results: Hgb 11.5 g/dl (14.0-18.0) L 11/02/23 WBC 5.9 X10*3/uL (4.8-10.8) 11/02/23 Plt Count 256 X10*3/uL (160-400) 11/02/23 Sodium 140 mmol/L (135-145) 11/02/23 Potassium 4.6 mmol/L (3.3-5.1) 11/02/23 Chloride 108 mmol/L (96-108) 11/02/23 Carbon Dioxide 24 mmol/L (22-29) 11/02/23 BUN 27 mg/dL (9-16) H 11/02/23 Creatinine 2.91 mg/dL (0.5-1.4) H 11/02/23 Calcium 9.8 mg/dL (8.4-10.2) 10/20/23 Phosphorus 2.7 mg/dL (2.7-4.5) 10/20/23 PTH Intact 103.2 pg/mL (8.7-77.1) H 10/20/23 Assessment & Plan Assessment & Plan (1) CKD stage 3a, GFR 45-59 ml/min: Code(s): N18.31 - Chronic kidney disease, stage 3a Category: Medical (2) Renal transplant recipient: Code(s): Z94.0 - Kidney transplant status Category: Surgical (3) Essential (primary) hypertension: Code(s): I10 - Essential (primary) hypertension Category: Medical Plan His serum creatinine is marginally better . He does not have any proteinuria. His DSA had been negative. His transplant ultrasound did not show any hydronephrosis. Transplant biopsy done on 06/26/2023 showed no rejection. He is on Envarsus and Myfortic. Myfortic has been put on hold given leukopenia which was restarted at a lower dose, which I plan to increase to 360 mg bid at the next visit . He has BK negative. He is on standard prophylaxis. His blood pressure is at goal. He maintains good hydration. I did not make any other medication changes today. Follow-up lab work ordered for next week. Will need annual dermatology appointment. Answered all his questions Orders: Orders Electrolytes Today I10 - Essential (primary) hypertension, N18.31 - Chronic kidney disease, stage 3a, Z94.0 - Kidney transplant status Creatinine Today I10 - Essential (primary) hypertension, N18.31 - Chronic kidney disease, stage 3a, Z94.0 - Kidney transplant status Blood Urea Nitrogen Today I10 - Essential (primary) hypertension, N18.31 - Chronic kidney disease, stage 3a, Z94.0 - Kidney transplant status Complete Blood Count Auto Diff 3 Weeks I10 - Essential (primary) hypertension, N18.31 - Chronic kidney disease, stage 3a, Z94.0 - Kidney transplant status Tacrolimus Prograf Today I10 - Essential (primary) hypertension, N18.31 - Chronic kidney disease, stage 3a, Z94.0 - Kidney transplant status Coding Level of Care Code Est Pt Level 4 (57934) Diagnoses CKD stage 3a, GFR 45-59 ml/min N18.31 Renal transplant recipient Z94.0 Essential (primary) hypertension I10
[2023-11-03 11:56] VITALS: BP 128/82; PULSE 83; O2SAT 99; BMI 27.7
== END 2023-11-03 12:18 | disposition home or self-care (01) ==
PROVIDERS: PCP Internal Medicine; Visit Provider Internal Medicine Nephrology
DX: N18.31 Chronic kidney disease, stage 3a (principal); Z94.0 Kidney transplant status; I10 Essential (primary) hypertension
CPT/HCPCS: 99214

== ENCOUNTER → 2023-11-03 11:50 | Outpatient (BNVA) | payer BC, SELFPAY | PROVIDERS: PCP Internal Medicine; Visit Provider Internal Medicine Nephrology ==

== ENCOUNTER 2023-11-21 10:56 | Outpatient (REF) | payer BC, SELFPAY ==
[2023-11-21 17:26] LABS: MANUAL DIFF FLAG NO
[2023-11-21 17:42] LABS: Basophils Percent Auto 0.4 % (0-2); Eosinophils Absolute Auto 0.1 X10*3/uL (0.0-0.4); Eosinophils Percent Auto 1.8 % (0-4); Hemoglobin 12.4 g/dl (14.0-18.0); Imm Gran Abs Auto 0.02 X10*3/uL (0.00-0.03); Imm Gran Pct Auto 0.4 % (0.0-0.4); Lymphocytes Absolute Auto 1.4 X10*3/uL (1.2-4.9); Lymphocytes Percent Auto 27.7 % (20-40); Mean Corpuscular HGB Conc 31.8 g/dl (31.0-36.0); Mean Corpuscular Hemoglobin 25.8 pg (27.0-33.0); Mean Corpuscular Volume 81.3 fL (80.0-98.0); Mean Platelet Volume 9.4 fL (9.4-12.4); Monocytes Absolute Auto 0.3 X10*3/uL (0.1-1.2); Monocytes Percent Auto 6.1 % (2-11); Neutrophils Absolute Auto 3.2 x10*3/uL (2.0-8.3); Neutrophils Percent Auto 63.6 % (45-73); Platelet Count 256 X10*3/uL (160-400); Red Cell Distribution Width 15.5 % (11.0-16.0)
[2023-11-21 17:46] LABS: Anion Gap 13 (12-20); Blood Urea Nitrogen 35 mg/dL (9-16); Carbon Dioxide 22 mmol/L (22-29); Chloride 109 mmol/L (96-108); Estimated Glomerular Filt Rate 25; Potassium 4.5 mmol/L (3.3-5.1); Sodium 139 mmol/L (135-145)
[2023-11-22 08:34] LABS: Tacrolimus Prograf 10.4 mcg/L
== END 2023-11-21 10:57 | disposition home or self-care (01) ==
LOC: HO.HKASLDS 10:56
PROVIDERS: Visit Provider Internal Medicine Nephrology
DX: E83.42 Hypomagnesemia (principal); N18.31 Chronic kidney disease, stage 3a; Z94.0 Kidney transplant status; I12.9 Hypertensive chronic kidney disease with stage 1 through stage 4 chronic kidney disease, or unspecified chronic kidney disease
CPT/HCPCS: 80051; 80197; 82565; 84520; 85025; 87799

== ENCOUNTER 2023-11-24 11:12 | Outpatient (AMB) | payer BC, SELFPAY ==
[2023-11-24 11:27] VITALS: BP 100/60; PULSE 94; O2SAT 97; BMI 27.4
--- NOTE | 2023-11-24 11:27 | HO.NEPHOV ---
Vital Signs 11/24/23 11:27 Height 6 ft Weight 202 lb BMI 27.4 BP 100/60 Blood Pressure Location Lt brachial Position Sitting Pulse 94 Pulse Source Pulse Oximeter Pulse Oximetry (%) 97 Oxygen Delivery Method Room Air Intake Visit Reasons: 3 wks follow up/ LVM Personal Care Assistant Required: No Accompanied by: Spouse Allergies Sulfa (Sulfonamide Antibiotics) Allergy (Verified 11/24/23 11:31) Hives lisinopril Allergy (Uncoded 03/09/23 11:08) Swelling HPI Comments Details: I had the pleasure of seeing Bobo, accompanied by his who is now status post donor renal transplant on 05/12/2023. He had 0 panel reactive antibodies. Induction was done using Thymoglobulin. He had no delayed graft function and did not require renal replacement therapy. Postoperatively his renal ultrasound showed good flow and normal resistive indices. . Nuclear medicine scan showed a prompt flow to the kidney and findings were consistent with ATN. He had high blood pressure is postoperatively needing medications. He also developed shortness of breath and tachycardia with increasing abdominal distension postoperatively. Chest x-ray done at that time showed elevated right diaphragm concerning for either intra-abdominal or thoracic source. He underwent a CT chest abdomen and pelvis without IV contrast on 14 of May given his increasing oxygen requirements and tachycardia & it demonstrated a right hemidiaphragm elevation with some postsurgical inflammatory changes. He had positive Celine glabrata from the preservation fluid for which he was started on micafungin. He had a PICC line and received micafungin for 2 weeks posttransplant. CMV status of the donor was positive and he was positive as well. EBV status of the donor and recipient were positive. Hepatitis-C core antibody for the donor and recipient were negative. His BK virus PCR in the serum and urine were negative. His JJ stent postoperatively was removed on 06/19/2023. He had a prospera protocol on 08 of August which showed decreased risk for rejection. He also had a transplant biopsy on 26 of June for a creatinine of all than 2 which was negative for rejection. He has no history of DSA. He has been on Envarsus and mycophenolate. His Mycelex was discontinued on 06/01/2023 after he was started on ketoconazole. He remains on Bactrim and Valcyte which is going to be discontinued on 11/10/2023. He has lost a lot of weight but his weight is stabilizing. His appetite is poor but better. He does not have any tremor. He denies urinary symptoms, edema, tremor. He is compliant with his medications. His serum creatinine has improved [facility] Medical History (Updated 09/14/23 @ 10:48 by Vinnie Mckoy MD) Essential (primary) hypertension Chronic kidney disease, stage 5 Surgical History Kidney transplanted Social History Alcohol intake: never Patient Tobacco Use Status: Never used Tobacco Physical Exam Vital Signs: Last Vital Signs Pulse 94 11/24/23 11:27 BP 100/60 11/24/23 11:27 Pulse Ox 97 11/24/23 11:27 Oxygen Delivery Method Room Air 11/24/23 11:27 BMI result Body Mass Index 27.4 Const General: comfortable and no acute distress Orientation/consciousness: patient oriented x3 HEENT Head: Yes normocephalic Mouth: Normal oral and palatal mucosa present Eyes EOM: EOMs intact bilaterally Neck Neck: Yes supple Resp Auscultation: clear to auscultation bilaterally Cardio Jugular venous distension: no JVD Rate: regular rate GI Palpation (GI): Soft to palpation Auscultation: normal bowel sounds General: Yes no CVA tenderness Back/Spine/Pelvis Back: no CVA tenderness Skin General skin exam: no rashes or lesions noted Neuro General: patient oriented x3 and moves all extremities Extrem General: Yes no pedal edema Results Reviewed Nephrology Results: Hgb 12.4 g/dl (14.0-18.0) L 11/21/23 WBC 5.0 X10*3/uL (4.8-10.8) 11/21/23 Plt Count 256 X10*3/uL (160-400) 11/21/23 Sodium 139 mmol/L (135-145) 11/21/23 Potassium 4.5 mmol/L (3.3-5.1) 11/21/23 Chloride 109 mmol/L (96-108) H 11/21/23 Carbon Dioxide 22 mmol/L (22-29) 11/21/23 BUN 35 mg/dL (9-16) H 11/21/23 Creatinine 2.58 mg/dL (0.5-1.4) H 11/21/23 Calcium 9.8 mg/dL (8.4-10.2) 10/20/23 Phosphorus 2.7 mg/dL (2.7-4.5) 10/20/23 PTH Intact 103.2 pg/mL (8.7-77.1) H 10/20/23 Assessment & Plan Assessment & Plan (1) Hypomagnesemia: Code(s): E83.42 - Hypomagnesemia Category: Medical (2) CKD stage 3a, GFR 45-59 ml/min: Code(s): N18.31 - Chronic kidney disease, stage 3a Category: Medical (3) Renal transplant recipient: Code(s): Z94.0 - Kidney transplant status Category: Medical (4) Essential (primary) hypertension: Code(s): I10 - Essential (primary) hypertension Category: Medical Plan His serum creatinine is marginally better . He does not have any proteinuria. His DSA had been negative. His transplant ultrasound did not show any hydronephrosis. Transplant biopsy done on 06/26/2023 showed no rejection. He is on Envarsus and Myfortic. Myfortic has been put on hold given leukopenia which was restarted at a lower dose, which I plan increased to 540 mg bid . He has BK negative. He is on standard prophylaxis. His blood pressure is at goal. He maintains good hydration. I did not make any other medication changes today. Follow-up lab work ordered . Will need annual dermatology appointment. Answered all his questions Orders: Orders Blood Urea Nitrogen Today E83.42 - Hypomagnesemia, I10 - Essential (primary) hypertension, N18.31 - Chronic kidney disease, stage 3a, Z94.0 - Kidney transplant status Calcium Today E83.42 - Hypomagnesemia, I10 - Essential (primary) hypertension, N18.31 - Chronic kidney disease, stage 3a, Z94.0 - Kidney transplant status Magnesium Today E83.42 - Hypomagnesemia, I10 - Essential (primary) hypertension, N18.31 - Chronic kidney disease, stage 3a, Z94.0 - Kidney transplant status Complete Blood Count Auto Diff 3 Weeks E83.42 - Hypomagnesemia, I10 - Essential (primary) hypertension, N18.31 - Chronic kidney disease, stage 3a, Z94.0 - Kidney transplant status Creatinine Today E83.42 - Hypomagnesemia, I10 - Essential (primary) hypertension, N18.31 - Chronic kidney disease, stage 3a, Z94.0 - Kidney transplant status Electrolytes Today E83.42 - Hypomagnesemia, I10 - Essential (primary) hypertension, N18.31 - Chronic kidney disease, stage 3a, Z94.0 - Kidney transplant status Phosphorus Today E83.42 - Hypomagnesemia, I10 - Essential (primary) hypertension, N18.31 - Chronic kidney disease, stage 3a, Z94.0 - Kidney transplant status Aspartate Amino Transferase Today E83.42 - Hypomagnesemia, I10 - Essential (primary) hypertension, N18.31 - Chronic kidney disease, stage 3a, Z94.0 - Kidney transplant status Alanine Aminotransferase Today E83.42 - Hypomagnesemia, I10 - Essential (primary) hypertension, N18.31 - Chronic kidney disease, stage 3a, Z94.0 - Kidney transplant status Tacrolimus Prograf Today E83.42 - Hypomagnesemia, I10 - Essential (primary) hypertension, N18.31 - Chronic kidney disease, stage 3a, Z94.0 - Kidney transplant status Medications: Changed From tacrolimus XR (Envarsus XR) 5 mg PO DAILY To tacrolimus XR 4 mg PO DAILY 90 tabs 2RF Coding Level of Care Code Est Pt Level 4 (50577) Diagnoses Hypomagnesemia E83.42 CKD stage 3a, GFR 45-59 ml/min N18.31 Renal transplant recipient Z94.0 Essential (primary) hypertension I10
== END 2023-11-24 12:02 | disposition home or self-care (01) ==
PROVIDERS: PCP Internal Medicine; Visit Provider Internal Medicine Nephrology
DX: E83.42 Hypomagnesemia (principal); N18.31 Chronic kidney disease, stage 3a; Z94.0 Kidney transplant status; I10 Essential (primary) hypertension
CPT/HCPCS: 99214

== ENCOUNTER → 2023-11-24 11:12 | Outpatient (BNVA) | payer BC, SELFPAY | PROVIDERS: PCP Internal Medicine; Visit Provider Internal Medicine Nephrology ==

== ENCOUNTER 2023-12-05 09:12 | Outpatient (AMB) | payer BC, SELFPAY ==
--- NOTE | 2023-12-05 09:20 | A.OFFVIS_ITS ---
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 hematoma. Pt states he noticed this about 3 weeks ago with no known injury. Pt states it is painful and swollen. Pt denies any discharge from the finger. 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 The patient reports that this began as a small hard area, but has gradually grown over that time to encompass most of the volar aspect of the distal phalanx of the right small finger. The patient reports that he has been experiencing significant pain in this area since lesion 1st appeared. The patient reports no particular injury to the area prior to onset of this lesion. Of note, the patient is a kidney transplant patient who is on immunosuppressant medication. Patient reports that he was previously evaluated by his primary care provider for this lesion, referred him to hand surgery for further management. Patient reports no numbness or tingling in the area of the lesion, and denies any streaking of redness down the right 5th digit. No other acute complaints or concerns at this time [facility] Medical History Essential (primary) hypertension Chronic kidney disease, stage 5 Surgical History Kidney transplanted Social History Alcohol intake: never Patient Tobacco Use Status: Never used Tobacco Review of Systems Const All systems reviewed & are unremarkable except as noted in HPI and below Physical Exam Extrem Other: Patient is alert, oriented, and in no acute distress. Neuro: Median, ulnar, radial nerves motor and sensory intact and sensation is normal to the tips of all digits. Vascular: Cap refill brisk Pain: Patient reports significant tenderness to palpation about the volar aspect of the right small finger distal phalanx, at about the level of the lesion ROM: Range of motion of the right hand full and intact Skin: There is an approximately 1-1.5 cm lesion noted on the volar aspect of the distal phalanx of the right small finger, with mild erythema and an area of purulence noted at the apex of the mass. No open areas noted. No drainage noted. General: No ecchymosis Psych: Appears grossly normal Affect normal Attitude cooperative Assessment & Plan Assessment & Plan (1) Felon of finger of right hand: Code(s): L03.011 - Cellulitis of right finger Category: Medical Plan 1. Felon of right small finger Date of onset approximately 3 weeks ago Patient is educated about this condition After consultation and discussion with Dr. Chicas, who was available in the office to see this patient, a joint treatment plan was formed I educated the patient about the condition. I discussed both operative and nonoperative treatment options. The patient would like to proceed with surgery. The risks and benefits of operative treatment were discussed with the patient and the patient wishes to proceed with surgery. These risks include, but are not limited to, risk of damage to blood vessels, nerves, tendons, infection, recurrence, incomplete relief of preoperative symptoms, persistent pain, possible need for further surgery, and the risks associated with regional blocks and/or anesthesia. Plan is to take the patient to the operating room on for the following procedures: 1. Irrigation and debridement of felon of right small finger under local anesthesia All of the preoperative paperwork including the consent was discussed today. All of the patient's questions were answered in the clinic today. The patient understands that they will be in contact with our surgical endoscopist to discuss scheduling their procedure. Of note, the patient is on two immunosuppressant medications (tacrolimus and mycophenolate) as a result of undergoing kidney transplant earlier this year. Patient is informed that these medications can delay wound healing, however he should not stop these medications due to having transplant recently. Patient knows about these potential side effects and is amenable to proceeding with surgery. Patient denies diabetes, blood thinners, asthma, heart issues, lung issues, or current smoking. Coding Level of Care Code New Pt Level 4 (51072) Diagnoses Felon of finger of right hand L03.011
== END 2023-12-05 10:00 | disposition home or self-care (01) ==
PROVIDERS: PCP Internal Medicine
DX: L03.011 Cellulitis of right finger (principal)
CPT/HCPCS: 99204

== ENCOUNTER → 2023-12-05 09:12 | Outpatient (BNVA) | payer BC, SELFPAY | PROVIDERS: PCP Internal Medicine ==

== ENCOUNTER 2023-12-07 09:04 | Day surgery (SDC) | payer BC, SELFPAY ==
[2023-12-07 09:24] VITALS: BP 134/92; PULSE 94; RESP 18; TEMP 37.1; O2SAT 98; BMI 27.4
[2023-12-07 11:15] VITALS: BP 134/92; PULSE 94
--- NOTE | 2023-12-07 11:24 | MHC.SHP ---
Pre-Procedural Eval Section A - 24 Hr Update-Section A only Date of Service: 12/07/23 The patient is an INPATIENT: No Changes since office visit: No Cold of Flu in the past 2 weeks, No New Medical Problems, No Changes in Medication and No Patient answered all questions The patient has been examined within 24 hours of the surgical procedure. The History & Physical has been completed within 30 days and I have reviewed it.: Yes Section B - Complete if H&P > 30 days Chief Complaint: Cutaneous abscess, unspecified Allergies: Allergies Allergy/AdvReac Type Severity Reaction Status Date / Time Sulfa (Sulfonamide Allergy Hives Verified 12/05/23 09:20 Antibiotics) lisinopril Allergy Swelling Uncoded 12/05/23 09:20 Plan I have reviewed the history and physical and performed a pertinent physical examination on my patient. No changes have occurred unless specified. Time Spent With Patient Time: Total time managing care of this patient today ____ minutes.
--- NOTE | 2023-12-07 11:24 | W.PM.OPN ---
Operative Note Operative Note Date of Service: 12/07/23 Narrative: Operative Note Preop diagnosis: 1. Right small finger soft tissue mass Postop diagnosis: 1. Right small finger felon Procedure: 1. Right small finger felon I and D Anesthesia: digital block using 1% lidocaine with epinephrine Findings: Found an abscess cavity in the pad of the small finger. Specimens: Cultures taken of purulent material Complications: None Disposition: Brought to recovery room in stable condition Plan: Patient placed on oral Augmentin for 5 days Follow-up in 5 days for a wound check and to check cultures and adjust antibiotics for an additional 5 days. Please note that patient is a renal transplant patient on transplant medications and thus with a weakened immune system. Indications: The patient is 63 years old, with right small finger painful mass in the pad of the finger. He says this has been going on for 3 weeks, and he has not been on antibiotics. He is a renal transplant patient on transplant medications. . The risks and benefits of operative treatment including but not limited to risk of damage to blood vessels, nerves, tendons, infection, persistent pain, persistent symptoms, recurrence or possible need for additional surgery were discussed with the patient and the patient wishes to proceed with surgery. Procedure: Once consent was obtained a digital block was performed in the preop area using a combination of 1% lidocaine with epinephrine. The patient was then brought back to the operating suite and placed on the operative table in supine position. The limb was prepped and draped in a standard surgical fashion. Once assured that we had a good block, I made a 1 cm oblique incision centered over the mass on the pad of the right small finger. Immediately we had copious amounts of yellow creamy purulent material. Cultures were taken. An I&D was performed, and the abscess cavity was copiously irrigated with normal saline. Once satisfied with our I&D a single suture using 5 0 Prolene was placed to reapproximate the wound edges. Sterile dressing was applied. The patient appears to have tolerated the procedure well and with no complications. All digits were well vascularized at the conclusion of the case.
[2023-12-07 13:06] VITALS: BP 134/78; PULSE 92; RESP 16; O2SAT 98
== END 2023-12-07 13:08 | disposition home or self-care (01) ==
PROVIDERS: PCP Internal Medicine; Visit Provider Orthopaedic Surgery
PROC: (CPT 26010; principal; 2023-12-07 11:30)
DX: L03.011 Cellulitis of right finger (principal); I12.0 Hypertensive chronic kidney disease with stage 5 chronic kidney disease or end stage renal disease; N18.5 Chronic kidney disease, stage 5; Z94.0 Kidney transplant status; Z79.899 Other long term (current) drug therapy; Z88.2 Allergy status to sulfonamides; Z88.8 Allergy status to other drugs, medicaments and biological substances
CPT/HCPCS: 26010; 87070; 87205; J0171

== ENCOUNTER → 2023-12-07 09:04 | Outpatient (BNV) | payer BC, SELFPAY | PROVIDERS: PCP Internal Medicine; Visit Provider Orthopaedic Surgery | DX: R22.31 Localized swelling, mass and lump, right upper limb (principal) | CPT/HCPCS: 26011 ==

== ENCOUNTER 2023-12-12 13:44 | Outpatient (AMB) | payer BC, SELFPAY ==
--- NOTE | 2023-12-12 14:18 | MHC.OFFVIS ---
Vital Signs 12/12/23 14:21 Height 6 ft Weight 202 lb BMI 27.4 Intake Visit Reasons: PO-wound check RT small finger felon I&D 12/07/23 AR Intake Note: Bobo is a 63 yo male who presents today post operatively for a wound check s/p right small finger felon i&D 12/07/[address] Chicas. Patient reports minimal pain for which he is taking Tylenol. Denies numbness or tingling. Patient continues to take abx. Allergies Sulfa (Sulfonamide Antibiotics) Allergy (Verified 12/12/23 14:23) Hives lisinopril Allergy (Uncoded 12/12/23 14:23) Swelling HPI HPI PO-wound check RT small finger felon I&D 12/07/23 AR: Details: Bobo is a 63 year old right hand dominant man who presents S/P right small finger felon I&D, DOS: 12/07/23. He says he is doing well, with minimal pain and no evidence of infection. He denies any numbness or tingling. He has almost finished his course of Abx. Patient is a renal transplant patient on transplant medications and thus with a weakened immune system. [facility] Medical History Essential (primary) hypertension Chronic kidney disease, stage 5 Surgical History Kidney transplanted Social History Alcohol intake: never Patient Tobacco Use Status: Never used Tobacco Review of Systems Const All systems reviewed & are unremarkable except as noted in HPI and below Physical Exam Vital Signs: BMI result Body Mass Index 27.4 Const General: no acute distress and alert Orientation/consciousness: patient oriented x3 Neuro General: patient oriented x3 Extrem Other: The patient was alert oriented and in no acute distress The incision is healing well with no erythema drainage or evidence of infection. Suture removed He can make a fist and extend all his digits Sensation is intact Swelling improved Cap refill is brisk Pathology report: Gram stain Final 12/07/23-1517 Gram stain results: 2+ polys 1+ epithelial cells 4+ red blood cells No organisms seen Routine Culture Final 12/09/23-0811 Psych Appearance: grossly normal Affect: normal affect Attitude: cooperative Assessment & Plan Assessment & Plan (1) [place] of finger of right hand: Comment: Code(s): L03.011 - Cellulitis of right finger Category: Medical (2) Renal transplant recipient: Code(s): Z94.0 - Kidney transplant status Category: Surgical Plan Assessment & Plan: 1. Right small finger clarissa, S/P I&D DOS: 12/07/23 The patient appears to be doing well post-operatively I educated him about the post-operative course The patient is a renal transplant patient on transplant medications and thus with a weakened immune system. I explained the signs and symptoms of infection, if the patient develops any new or worsening erythema, drainage, pain, or warmth they should contact the clinic or attend the ED. He was given an addition 5-day course of PO Doxycycline I discussed activity modifications, he is to lift nothing heavier than a cellphone for the next 3 weeks He will perform gentle ROM exercises at home He should avoid any underwater activities at this time He will follow up next week for a wound check. He may cancel this if he is doing well. Scribed for Renetta Chicas MD by Alton Edward, medical sales associate, on 12/12/23 at 2:25 PM, EST. Medications: Refilled doxycycline hyclate 100 mg PO BID 12 tabs 0RF 6 days Coding Level of Care Code Global (45332) Diagnoses Felon of finger of right hand L03.011 Renal transplant recipient Z94.0
[2023-12-12 14:21] VITALS: BMI 27.4
== END 2023-12-12 14:47 | disposition home or self-care (01) ==
PROVIDERS: PCP Internal Medicine; Visit Provider Orthopaedic Surgery
DX: L03.011 Cellulitis of right finger (principal); Z94.0 Kidney transplant status
CPT/HCPCS: 99024

== ENCOUNTER → 2023-12-12 13:44 | Outpatient (BNVA) | payer BC, SELFPAY | PROVIDERS: PCP Internal Medicine; Visit Provider Orthopaedic Surgery ==

== ENCOUNTER 2023-12-19 10:29 | Outpatient (REF) | payer BC, SELFPAY ==
[2023-12-19 14:40] LABS: MANUAL DIFF FLAG NO
[2023-12-19 14:45] LABS: Basophils Percent Auto 0.3 % (0-2); Eosinophils Absolute Auto 0.1 X10*3/uL (0.0-0.4); Hematocrit 36.8 % (42.0-52.0); Hemoglobin 11.7 g/dl (14.0-18.0); Imm Gran Abs Auto 0.02 X10*3/uL (0.00-0.03); Imm Gran Pct Auto 0.3 % (0.0-0.4); Lymphocytes Absolute Auto 1.2 X10*3/uL (1.2-4.9); Lymphocytes Percent Auto 17.1 % (20-40); Mean Corpuscular HGB Conc 31.8 g/dl (31.0-36.0); Mean Corpuscular Hemoglobin 25.3 pg (27.0-33.0); Mean Corpuscular Volume 79.5 fL (80.0-98.0); Mean Platelet Volume 9.3 fL (9.4-12.4); Monocytes Absolute Auto 0.5 X10*3/uL (0.1-1.2); Monocytes Percent Auto 7.9 % (2-11); Neutrophils Percent Auto 73.4 % (45-73); Platelet Count 273 X10*3/uL (160-400); Red Blood Count 4.63 X10*6/uL (4.60-5.80); Red Cell Distribution Width 15.7 % (11.0-16.0); White Blood Count 6.8 X10*3/uL (4.8-10.8)
[2023-12-19 15:06] LABS: Alanine Aminotransferase 11 U/L (0-40); Anion Gap 11 (12-20); Aspartate Amino Transferase 10 U/L (5-37); Blood Urea Nitrogen 33 mg/dL (9-16); Calcium 9.7 mg/dL (8.4-10.2); Carbon Dioxide 25 mmol/L (22-29); Chloride 107 mmol/L (96-108); Estimated Glomerular Filt Rate 29; Magnesium 1.5 mg/dL (1.6-2.6); Phosphorus 2.2 mg/dL (2.7-4.5); Potassium 4.3 mmol/L (3.3-5.1); Sodium 139 mmol/L (135-145)
[2023-12-20 12:54] LABS: Tacrolimus Prograf 6.9 mcg/L
== END 2023-12-19 10:30 | disposition home or self-care (01) ==
LOC: HO.HKASLDS 10:29
PROVIDERS: Visit Provider Internal Medicine Nephrology
DX: I10 Essential (primary) hypertension (principal); E83.42 Hypomagnesemia; N18.31 Chronic kidney disease, stage 3a; Z94.0 Kidney transplant status
CPT/HCPCS: 36415; 80051; 80197; 82310; 82565; 83735; 84100; 84450; 84460; 84520; 85025

== ENCOUNTER 2023-12-20 10:39 | Outpatient (AMB) | payer BC, SELFPAY ==
--- NOTE | 2023-12-20 10:52 | MHC.OFFVIS ---
Intake Visit Reasons: PO RT small finger felon I&D 12/07/23 AR Intake Note: Bobo is a 63 yo right hand dominant male who presents today post operatively s/p right small finger felon I&D done 12/07/[address] Chicas. Patient denies numbness, tingling, and locking on finger. The tip of the right small finger is still swollen but no discharge, redness or warmness to touch. Sutures removed in office during wound check last week. Allergies Sulfa (Sulfonamide Antibiotics) Allergy (Verified 12/20/23 10:58) Hives lisinopril Allergy (Uncoded 12/20/23 10:58) Swelling HPI HPI PO RT small finger felon I&D 12/07/23 AR: Details: Bobo is a 63 year old right hand dominant man who presents S/P right small finger felon I&D, DOS: 12/07/23. He is here for a wound check. He says he is doing well, with no pain and no evidence of infection. He is concerned that the tip of his finger is still swollen but he denies any redness or discharge. He denies any numbness or tingling. He has completed his extended course of Abx. Patient is a renal transplant patient on transplant medications and thus with a weakened immune system. 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 Physical Exam Const General: no acute distress and alert Orientation/consciousness: patient oriented x3 Neuro General: patient oriented x3 Extrem Other: The patient was alert oriented and in no acute distress The incision is well-healed with no erythema or drainage He can make a fist and extend all his digits Mild tenderness & sensitivity to the tip of the tinger Sensation is intact Cap refill is brisk Pathology report: Gram stain Final 12/07/23-1517 Gram stain results: 2+ polys 1+ epithelial cells 4+ red blood cells No organisms seen Routine Culture Final 12/09/23-0811 Psych Appearance: grossly normal Affect: normal affect Attitude: cooperative Assessment & Plan Assessment & Plan (1) Felon of finger of right hand: Comment: Code(s): L03.011 - Cellulitis of right finger Category: Medical (2) Renal transplant recipient: Code(s): Z94.0 - Kidney transplant status Category: Surgical Plan Assessment & Plan: 1. Right small finger felon, S/P I&D DOS: 12/07/23 The patient appears to be doing well post-operatively I educated him about the post-operative course The patient is a renal transplant patient on transplant medications and thus with a weakened immune system. I discussed activity modifications, he is to lift nothing heavier than a cellphone for the next 2 weeks He will perform gentle ROM exercises at home He will follow up prn Scribed for Renetta Chicas MD by Alton Edward, medical microbiologist, on 12/20/23 at 11:10 AM, EST. Coding Level of Care Code Global (38752) Diagnoses Felon of finger of right hand L03.011 Renal transplant recipient Z94.0
== END 2023-12-20 11:31 | disposition home or self-care (01) ==
PROVIDERS: PCP Internal Medicine; Visit Provider Orthopaedic Surgery
DX: L03.011 Cellulitis of right finger (principal); Z94.0 Kidney transplant status
CPT/HCPCS: 99024

== ENCOUNTER → 2023-12-20 10:39 | Outpatient (BNVA) | payer BC, SELFPAY | PROVIDERS: PCP Internal Medicine; Visit Provider Orthopaedic Surgery ==

== ENCOUNTER 2023-12-21 16:06 | Outpatient (AMB) | payer BC, SELFPAY ==
--- NOTE | 2023-12-21 16:29 | HO.NEPHOV ---
Vital Signs 12/21/23 16:31 Height 6 ft Weight 209 lb 6 oz BMI 28.4 BP 122/86 Blood Pressure Location Lt brachial Position Sitting Pulse 86 Pulse Source Pulse Oximeter Pulse Oximetry (%) 100 Oxygen Delivery Method Room Air Intake Visit Reasons: Transplant 1 mon follow up/ Conf Catering Manager Required: No Accompanied by: Spouse Allergies Sulfa (Sulfonamide Antibiotics) Allergy (Verified 12/21/23 16:36) Hives lisinopril Allergy (Uncoded 12/20/23 10:58) Swelling HPI Comments Details: I had the pleasure of seeing Bobo, accompanied by his who is now status post donor renal transplant on 05/12/2023. He had 0 panel reactive antibodies. Induction was done using Thymoglobulin. He had no delayed graft function and did not require renal replacement therapy. Postoperatively his renal ultrasound showed good flow and normal resistive indices. . Nuclear medicine scan showed a prompt flow to the kidney and findings were consistent with ATN. He had high blood pressure is postoperatively needing medications. He also developed shortness of breath and tachycardia with increasing abdominal distension postoperatively. Chest x-ray done at that time showed elevated right diaphragm concerning for either intra-abdominal or thoracic source. He underwent a CT chest abdomen and pelvis without IV contrast on 14 of May given his increasing oxygen requirements and tachycardia & it demonstrated a right hemidiaphragm elevation with some postsurgical inflammatory changes. He had positive Celine glabrata from the preservation fluid for which he was started on micafungin. He had a PICC line and received micafungin for 2 weeks posttransplant. CMV status of the donor was positive and he was positive as well. EBV status of the donor and recipient were positive. Hepatitis-C core antibody for the donor and recipient were negative. His BK virus PCR in the serum and urine were negative. His JJ stent postoperatively was removed on 06/19/2023. He had a prospera protocol on 08 of August which showed decreased risk for rejection. He also had a transplant biopsy on 26 of June for a creatinine of all than 2 which was negative for rejection. He has no history of DSA. He has been on Envarsus and mycophenolate. His Mycelex was discontinued on 06/01/2023 after he was started on ketoconazole. He remains on Bactrim and Valcyte which is going to be discontinued on 11/10/2023. He has lost a lot of weight but his weight is stabilizing. His appetite is poor but better. He does not have any tremor. He denies urinary symptoms, edema, tremor. He is compliant with his medications. His serum creatinine has improved PFSH Medical History Essential (primary) hypertension Chronic kidney disease, stage 5 Surgical History Kidney transplanted Social History Alcohol intake: never Patient Tobacco Use Status: Never used Tobacco Current occupation: rt handed Review of Systems Const All systems reviewed & are unremarkable except as noted in HPI and below Physical Exam Vital Signs: Last Vital Signs Pulse 86 12/21/23 16:31 BP 122/86 12/21/23 16:31 Pulse Ox 100 12/21/23 16:31 Oxygen Delivery Method Room Air 12/21/23 16:31 BMI result Body Mass Index 28.4 Const General: comfortable and no acute distress Orientation/consciousness: patient oriented x3 HEENT Head: Yes normocephalic Mouth: Normal oral and palatal mucosa present Eyes EOM: EOMs intact bilaterally Neck Neck: Yes supple Resp Auscultation: clear to auscultation bilaterally Cardio Jugular venous distension: no JVD Rate: regular rate GI Palpation (GI): Soft to palpation Auscultation: normal bowel sounds General: Yes no CVA tenderness Back/Spine/Pelvis Back: no CVA tenderness Skin General skin exam: no rashes or lesions noted Neuro General: patient oriented x3 and moves all extremities Extrem General: Yes no pedal edema Results Reviewed Nephrology Results: Hgb 11.7 g/dl (14.0-18.0) L 12/19/23 WBC 6.8 X10*3/uL (4.8-10.8) 12/19/23 Plt Count 273 X10*3/uL (160-400) 12/19/23 Sodium 139 mmol/L (135-145) 12/19/23 Potassium 4.3 mmol/L (3.3-5.1) 12/19/23 Chloride 107 mmol/L (96-108) 12/19/23 Carbon Dioxide 25 mmol/L (22-29) 08/13/24 BUN 33 mg/dL (9-16) H 12/19/23 Creatinine 2.27 mg/dL (0.5-1.4) H 12/19/23 Calcium 9.7 mg/dL (8.4-10.2) 12/19/23 Phosphorus 2.2 mg/dL (2.7-4.5) L 12/19/23 Assessment & Plan Assessment & Plan (1) CKD stage 3a, GFR 45-59 ml/min: Code(s): N18.31 - Chronic kidney disease, stage 3a Category: Medical (2) Hypomagnesemia: Code(s): E83.42 - Hypomagnesemia Category: Medical (3) Renal transplant recipient: Code(s): Z94.0 - Kidney transplant status Category: Surgical (4) Essential (primary) hypertension: Code(s): I10 - Essential (primary) hypertension Category: Medical Plan His serum creatinine is marginally better . He does not have any proteinuria. His DSA had been negative. His transplant ultrasound did not show any hydronephrosis. Transplant biopsy done on 06/26/2023 showed no rejection. He is on Envarsus and Myfortic. C/W Myfortic 540 mg bid . He has BK negative. His blood pressure is at goal. He maintains good hydration. I did not make any other medication changes today. Follow-up lab work ordered . Will need annual dermatology appointment. Answered all his questions Orders: Orders Creatinine 6 Weeks E83.42 - Hypomagnesemia, I10 - Essential (primary) hypertension, N18.31 - Chronic kidney disease, stage 3a, Z94.0 - Kidney transplant status Calcium 6 Weeks E83.42 - Hypomagnesemia, I10 - Essential (primary) hypertension, N18.31 - Chronic kidney disease, stage 3a, Z94.0 - Kidney transplant status Magnesium 6 Weeks E83.42 - Hypomagnesemia, I10 - Essential (primary) hypertension, N18.31 - Chronic kidney disease, stage 3a, Z94.0 - Kidney transplant status Tacrolimus Prograf 6 Weeks E83.42 - Hypomagnesemia, I10 - Essential (primary) hypertension, N18.31 - Chronic kidney disease, stage 3a, Z94.0 - Kidney transplant status Complete Blood Count Auto Diff 6 Weeks E83.42 - Hypomagnesemia, I10 - Essential (primary) hypertension, N18.31 - Chronic kidney disease, stage 3a, Z94.0 - Kidney transplant status Blood Urea Nitrogen 6 Weeks E83.42 - Hypomagnesemia, I10 - Essential (primary) hypertension, N18.31 - Chronic kidney disease, stage 3a, Z94.0 - Kidney transplant status Electrolytes 6 Weeks E83.42 - Hypomagnesemia, I10 - Essential (primary) hypertension, N18.31 - Chronic kidney disease, stage 3a, Z94.0 - Kidney transplant status Phosphorus 6 Weeks E83.42 - Hypomagnesemia, I10 - Essential (primary) hypertension, N18.31 - Chronic kidney disease, stage 3a, Z94.0 - Kidney transplant status Coding Level of Care Code Est Pt Level 4 (20636) Diagnoses CKD stage 3a, GFR 45-59 ml/min N18.31 Hypomagnesemia E83.42 Renal transplant recipient Z94.0 Essential (primary) hypertension I10
[2023-12-21 16:31] VITALS: BP 122/86; PULSE 86; O2SAT 100; BMI 28.4
== END 2023-12-21 16:59 | disposition home or self-care (01) ==
PROVIDERS: PCP Internal Medicine; Visit Provider Internal Medicine Nephrology
DX: N18.31 Chronic kidney disease, stage 3a (principal); E83.42 Hypomagnesemia; Z94.0 Kidney transplant status; I10 Essential (primary) hypertension
CPT/HCPCS: 99214

== ENCOUNTER → 2023-12-21 16:06 | Outpatient (BNVA) | payer BC, SELFPAY | PROVIDERS: PCP Internal Medicine; Visit Provider Internal Medicine Nephrology ==

== ENCOUNTER 2024-02-07 09:20 | Outpatient (REF) | payer BC, SELFPAY ==
[2024-02-07 18:03] LABS: MANUAL DIFF FLAG NO
[2024-02-07 18:13] LABS: Basophils Percent Auto 0.5 % (0-2); Eosinophils Absolute Auto 0.1 X10*3/uL (0.0-0.4); Eosinophils Percent Auto 1.1 % (0-4); Hematocrit 38.8 % (42.0-52.0); Hemoglobin 11.9 g/dl (14.0-18.0); Imm Gran Abs Auto 0.02 X10*3/uL (0.00-0.03); Imm Gran Pct Auto 0.3 % (0.0-0.4); Lymphocytes Percent Auto 16.4 % (20-40); Mean Corpuscular HGB Conc 30.7 g/dl (31.0-36.0); Mean Corpuscular Hemoglobin 24.5 pg (27.0-33.0); Mean Corpuscular Volume 79.8 fL (80.0-98.0); Mean Platelet Volume 9.1 fL (9.4-12.4); Monocytes Absolute Auto 0.4 X10*3/uL (0.1-1.2); Monocytes Percent Auto 7.2 % (2-11); Neutrophils Absolute Auto 4.6 x10*3/uL (2.0-8.3); Neutrophils Percent Auto 74.5 % (45-73); Platelet Count 290 X10*3/uL (160-400); Red Blood Count 4.86 X10*6/uL (4.60-5.80); Red Cell Distribution Width 16.1 % (11.0-16.0); White Blood Count 6.2 X10*3/uL (4.8-10.8)
[2024-02-07 18:32] LABS: Anion Gap 10 (12-20); Blood Urea Nitrogen 25 mg/dL (9-16); Calcium 9.5 mg/dL (8.4-10.2); Carbon Dioxide 25 mmol/L (22-29); Chloride 110 mmol/L (96-108); Estimated Glomerular Filt Rate 30; Magnesium 1.5 mg/dL (1.6-2.6); Phosphorus 2.9 mg/dL (2.7-4.5); Potassium 3.8 mmol/L (3.3-5.1); Sodium 141 mmol/L (135-145)
[2024-02-10 03:28] LABS: Tacrolimus Prograf 6.6 mcg/L
== END 2024-02-07 09:21 | disposition home or self-care (01) ==
LOC: HO.HKASLDS 09:20
PROVIDERS: Visit Provider Internal Medicine Nephrology
DX: I12.9 Hypertensive chronic kidney disease with stage 1 through stage 4 chronic kidney disease, or unspecified chronic kidney disease (principal); Z94.0 Kidney transplant status; E83.42 Hypomagnesemia; N18.31 Chronic kidney disease, stage 3a
CPT/HCPCS: 36415; 80051; 80197; 82310; 82565; 83735; 84100; 84520; 85025

== ENCOUNTER 2024-02-08 13:44 | Outpatient (AMB) | payer BC, SELFPAY ==
--- NOTE | 2024-02-08 13:51 | HO.NEPHOV ---
Vital Signs 02/08/24 13:52 Height 6 ft Weight 213 lb 4 oz BMI 28.9 BP 130/74 Blood Pressure Location Lt brachial Position Sitting Pulse 98 Pulse Source Pulse Oximeter Pulse Oximetry (%) 98 Oxygen Delivery Method Room Air Intake Visit Reasons: 6 wks follow up-Transplant pt/ Conf Hot Frame Tender Required: No Accompanied by: Self / Same As Patient Allergies Sulfa (Sulfonamide Antibiotics) Allergy (Verified 02/08/24 13:55) Hives lisinopril Allergy (Uncoded 12/20/23 10:58) Swelling HPI Comments Details: I had the pleasure of seeing Bobo who is now status post donor renal transplant on 05/12/2023. He had 0 panel reactive antibodies. Induction was done using Thymoglobulin. He had no delayed graft function and did not require renal replacement therapy. Postoperatively his renal ultrasound showed good flow and normal resistive indices. . Nuclear medicine scan showed a prompt flow to the kidney and findings were consistent with ATN. He had high blood pressure is postoperatively needing medications. He also developed shortness of breath and tachycardia with increasing abdominal distension postoperatively. Chest x-ray done at that time showed elevated right diaphragm concerning for either intra-abdominal or thoracic source. He underwent a CT chest abdomen and pelvis without IV contrast on 14 of May given his increasing oxygen requirements and tachycardia & it demonstrated a right hemidiaphragm elevation with some postsurgical inflammatory changes. He had positive Celine glabrata from the preservation fluid for which he was started on micafungin. He had a PICC line and received micafungin for 2 weeks posttransplant. CMV status of the donor was positive and he was positive as well. EBV status of the donor and recipient were positive. Hepatitis-C core antibody for the donor and recipient were negative. His BK virus PCR in the serum and urine were negative. His JJ stent postoperatively was removed on 06/19/2023. He had a prospera protocol on 08 of August which showed decreased risk for rejection. He also had a transplant biopsy on 26 of June for a creatinine of all than 2 which was negative for rejection. He has no history of DSA. He has been on Envarsus and mycophenolate. His Mycelex was discontinued on 06/01/2023 after he was started on ketoconazole. He remains on Bactrim and Valcyte which is going to be discontinued on 11/10/2023. He has lost a lot of weight but his weight is stabilizing. His appetite is poor but better. He does not have any tremor. He denies urinary symptoms, edema, tremor. He is compliant with his medications. His serum creatinine has improved and stable [facility] Medical History Essential (primary) hypertension Chronic kidney disease, stage 5 Surgical History Kidney transplanted Social History Alcohol intake: never Patient Tobacco Use Status: Never used Tobacco Current occupation: rt handed Physical Exam Const General: comfortable and no acute distress Orientation/consciousness: patient oriented x3 HEENT Head: Yes normocephalic Mouth: Normal oral and palatal mucosa present Eyes EOM: EOMs intact bilaterally Neck Neck: Yes supple Resp Auscultation: clear to auscultation bilaterally Cardio Jugular venous distension: no JVD Rate: regular rate GI Palpation (GI): Soft to palpation Auscultation: normal bowel sounds General: Yes no CVA tenderness Back/Spine/Pelvis Back: no CVA tenderness Skin General skin exam: no rashes or lesions noted Neuro General: patient oriented x3 and moves all extremities Extrem General: Yes no pedal edema Results Reviewed Nephrology Results: Hgb 11.9 g/dl (14.0-18.0) L 02/07/24 WBC 6.2 X10*3/uL (4.8-10.8) 02/07/24 Plt Count 290 X10*3/uL (160-400) 02/07/24 Sodium 141 mmol/L (135-145) 02/07/24 Potassium 3.8 mmol/L (3.3-5.1) 02/07/24 Chloride 110 mmol/L (96-108) H 02/07/24 Carbon Dioxide 25 mmol/L (22-29) 02/07/24 BUN 25 mg/dL (9-16) H 02/07/24 Creatinine 2.23 mg/dL (0.5-1.4) H 02/07/24 Calcium 9.5 mg/dL (8.4-10.2) 02/07/24 Phosphorus 2.9 mg/dL (2.7-4.5) 02/07/24 Assessment & Plan Assessment & Plan (1) Hypomagnesemia: Code(s): E83.42 - Hypomagnesemia Category: Medical (2) CKD stage 3a, GFR 45-59 ml/min: Code(s): N18.31 - Chronic kidney disease, stage 3a Category: Medical (3) Renal transplant recipient: Code(s): Z94.0 - Kidney transplant status Category: Surgical (4) Essential (primary) hypertension: Code(s): I10 - Essential (primary) hypertension Category: Medical Plan His serum creatinine is stable . He does not have any proteinuria. His DSA had been negative. His transplant ultrasound did not show any hydronephrosis. Transplant biopsy done on 06/26/2023 showed no rejection. He is on Envarsus and Myfortic. C/W Myfortic 540 mg bid . He has BK negative. His blood pressure is at goal. He maintains good hydration. I did not make any other medication changes today. Follow-up lab work ordered . Will need annual dermatology appointment. Answered all his questions Orders: Orders Complete Blood Count Auto Diff 2 Months Z94.0 - Kidney transplant status Blood Urea Nitrogen 2 Months Z94.0 - Kidney transplant status Magnesium 2 Months Z94.0 - Kidney transplant status Alanine Aminotransferase 2 Months Z94.0 - Kidney transplant status Aspartate Amino Transferase 2 Months Z94.0 - Kidney transplant status Other Ref Test - Misc 2 Months Z94.0 - Kidney transplant status Creatinine 2 Months Z94.0 - Kidney transplant status Electrolytes 2 Months Z94.0 - Kidney transplant status Calcium 2 Months Z94.0 - Kidney transplant status Phosphorus 2 Months Z94.0 - Kidney transplant status Tacrolimus Prograf 2 Months Z94.0 - Kidney transplant status Coding Level of Care Code Est Pt Level 4 (66080) Diagnoses Hypomagnesemia E83.42 CKD stage 3a, GFR 45-59 ml/min N18.31 Renal transplant recipient Z94.0 Essential (primary) hypertension I10
[2024-02-08 13:52] VITALS: BP 130/74; PULSE 98; O2SAT 98; BMI 28.9
== END 2024-02-08 14:27 | disposition home or self-care (01) ==
PROVIDERS: PCP Internal Medicine; Visit Provider Internal Medicine Nephrology
DX: E83.42 Hypomagnesemia (principal); N18.31 Chronic kidney disease, stage 3a; Z94.0 Kidney transplant status; I10 Essential (primary) hypertension
CPT/HCPCS: 99214

== ENCOUNTER → 2024-02-08 13:44 | Outpatient (BNVA) | payer BC, SELFPAY | PROVIDERS: PCP Internal Medicine; Visit Provider Internal Medicine Nephrology ==

== ENCOUNTER 2024-04-09 14:17 | Outpatient (AMB) | payer BC, SELFPAY ==
--- NOTE | 2024-04-09 14:23 | HO.NEPHOV_ITS ---
Vital Signs 04/09/24 14:26 Height 6 ft Weight 217 lb 8 oz BMI 29.5 BP 120/78 Blood Pressure Location Lt brachial Position Sitting Pulse 96 Pulse Source Pulse Oximeter Pulse Oximetry (%) 97 Oxygen Delivery Method Room Air Intake Visit Reasons: 2 mon TX follow up/ Conf Control Panel Tester Required: No Accompanied by: Son Allergies Sulfa (Sulfonamide Antibiotics) Allergy (Verified 04/09/24 14:28) Hives lisinopril Allergy (Uncoded 12/20/23 10:58) Swelling HPI Comments Details: Bobo was seen in follow up of his renal transplant. 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 He had 0 panel reactive antibodies. Induction was done using Thymoglobulin. He had no delayed graft function and did not require renal replacement therapy. CMV status of the donor was positive and he was positive as well. EBV status of the donor and recipient were positive. Hepatitis-C core antibody for the donor and recipient were negative. His BK virus PCR in the serum and urine were negative. His JJ stent postoperatively was removed on 06/19/2023. He had a prospera protocol on 08 of August which showed decreased risk for rejection. He also had a transplant biopsy on 26 of June for a creatinine of all than 2 which was negative for rejection. He has no history of DSA. He has been on Envarsus and mycophenolate. His Mycelex was discontinued on 06/01/2023 after he was started on ketoconazole. He was on Bactrim and Valcyte which was discontinued on 11/10/2023. He does not have any tremor. He denies urinary symptoms, edema, tremor. He is compliant with his medications. His serum creatinine has improved and stable [facility] Medical History Essential (primary) hypertension Chronic kidney disease, stage 5 Surgical History Kidney transplanted Social History Alcohol intake: never Patient Tobacco Use Status: Never used Tobacco Current occupation: rt handed Review of Systems Const All systems reviewed & are unremarkable except as noted in HPI and below Physical Exam Vital Signs: Last Vital Signs Pulse 96 04/09/24 14:26 BP 120/78 04/09/24 14:26 Pulse Ox 97 04/09/24 14:26 Oxygen Delivery Method Room Air 04/09/24 14:26 BMI result Body Mass Index 29.5 Const General: comfortable and no acute distress Orientation/consciousness: patient oriented x3 HEENT Head: Yes normocephalic Mouth: Normal oral and palatal mucosa present Eyes EOM: EOMs intact bilaterally Neck Neck: Yes supple Resp Auscultation: clear to auscultation bilaterally Cardio Jugular venous distension: no JVD Rate: regular rate GI Palpation (GI): Soft to palpation Auscultation: normal bowel sounds General: Yes no CVA tenderness Back/Spine/Pelvis Back: no CVA tenderness Skin General skin exam: no rashes or lesions noted Neuro General: patient oriented x3 and moves all extremities Extrem General: Yes no pedal edema Assessment & Plan Assessment & Plan (1) Essential (primary) hypertension: Code(s): I10 - Essential (primary) hypertension Category: Medical (2) Renal transplant recipient: Code(s): Z94.0 - Kidney transplant status Category: Surgical (3) CKD stage 3a, GFR 45-59 ml/min: Code(s): N18.31 - Chronic kidney disease, stage 3a Category: Medical Plan His serum creatinine is stable . He does not have any proteinuria. His DSA had been negative. His transplant ultrasound did not show any hydronephrosis. Transplant biopsy done on 06/26/2023 showed no rejection. He is on Envarsus and Myfortic. C/W Myfortic 540 mg bid . He has BK negative. His blood pressure is at goal. He maintains good hydration. I did not make any other medication changes today. Follow-up lab work ordered . Will need annual dermatology appointment. Answered all his questions Orders: Orders Tacrolimus Prograf 2 Months I10 - Essential (primary) hypertension, N18.31 - Chronic kidney disease, stage 3a, Z94.0 - Kidney transplant status Creatinine 2 Months I10 - Essential (primary) hypertension, N18.31 - Chronic kidney disease, stage 3a, Z94.0 - Kidney transplant status Electrolytes 2 Months I10 - Essential (primary) hypertension, N18.31 - Chronic kidney disease, stage 3a, Z94.0 - Kidney transplant status Calcium 2 Months I10 - Essential (primary) hypertension, N18.31 - Chronic kidney disease, stage 3a, Z94.0 - Kidney transplant status Phosphorus 2 Months I10 - Essential (primary) hypertension, N18.31 - Chronic kidney disease, stage 3a, Z94.0 - Kidney transplant status Magnesium 2 Months I10 - Essential (primary) hypertension, N18.31 - Chronic kidney disease, stage 3a, Z94.0 - Kidney transplant status Complete Blood Count Auto Diff 2 Months I10 - Essential (primary) hypertension, N18.31 - Chronic kidney disease, stage 3a, Z94.0 - Kidney transplant status Blood Urea Nitrogen 2 Months I10 - Essential (primary) hypertension, N18.31 - Chronic kidney disease, stage 3a, Z94.0 - Kidney transplant status Coding Level of Care Code Est Pt Level 4 (11512) Diagnoses Essential (primary) hypertension I10 Renal transplant recipient Z94.0 CKD stage 3a, GFR 45-59 ml/min N18.31
[2024-04-09 14:26] VITALS: BP 120/78; PULSE 96; O2SAT 97; BMI 29.5
--- OUTSIDE RECORDS SUMMARY | 2024-04-16 14:53 | XMS_ITS ---
Author Name [facility] Organization Unknown History of Medication Use Medication Directions Dispensed Refills Start Date End Date Stat NIFEdipine (PROCARDIA XL) 30 MG 24 hr tablet Take 30 mg by mouth daily. 02/10/2024 active sodium bicarbonate 650 MG tablet Take 650 mg by mouth 2 (two) times a day. 02/10/2024 active polyethylene glycol-electrolytes (NuLYTELY, TRILYTE) 420 g solution Take as directed for Colonoscopy/GI Procedure. See administration instructions. 02/10/2024 active magnesium oxide 400 (240 Mg) MG Tab tablet Take 400 mg by mouth daily. Take 2 hours apart from other medications; take with food 02/10/2024 active montelukast (SINGULAIR) 10 MG tablet Take 10 mg by mouth nightly. 02/10/2024 active mycophenolate (MYFORTIC) 180 MG EC tablet Take by mouth 2 (two) times a day. 02/10/2024 active Tacrolimus (ENVARSUS XR PO) Take 5 mg by mouth 2 (two) times a day. 02/10/2024 active PANTOprazole (PROTONIX) 20 MG tablet Take 20 mg by mouth every morning before breakfast. 02/10/2024 active ketoconazole (NIZORAL) 200 MG tablet Take 200 mg by mouth daily. 02/10/2024 active ferrous sulfate 325 (65 FE) MG EC tablet Take 325 mg by mouth daily. Take 2 hours before or 4 hours after acid reducers. 02/10/2024 active terazosin (HYTRIN) 2 MG capsule Take 2 mg by mouth. 06/03/2022 activ e chlorthalidone (HYGROTON) 25 MG tablet Take 25 mg by mouth. 06/03/2022 acti ve atorvastatin (LIPITOR) 20 MG tablet TK 1 T PO QD 06/03/2022 active acetaminophen (TYLENOL) 325 MG tablet Take 975 mg by mouth 3 times daily (every 8 hours) as needed. 06/03/2022 active metoPROLOL SUCCINATE (TOPROL-XL) 100 MG 24 hr tablet Take 100 mg by mouth. 06/03/2022 active metoPROLOL SUCCINATE (TOPROL-XL) 100 MG 24 hr tablet TK 1 T PO QD 06/03/2022 active predniSONE (DELTASONE) 20 MG tablet TK 1 T PO QD 06/03/2022 active atorvastatin (LIPITOR) 20 MG tablet Take 20 mg by mouth. 06/03/2022 acti ve losartan (COZAAR) 100 MG tablet Take 100 mg by mouth. 06/03/2022 active hydrALAZINE (APRESOLINE) 25 MG tablet TK 1 T PO BID 06/03/2022 active chlorthalidone (HYGROTON) 25 MG tablet TK 1 T PO QD 06/03/2022 active methocarbamol (ROBAXIN) 500 MG tablet TK 1 T PO TID PRN FOR UP TO 7 DAYS 06/03/2022 active Problems Problem Status Onset Date Problem Type Date of Resoluti on Source Gastroesophageal reflux disease active 2019-01-21 ProblemAct [facility] Personal history of colonic polyps active 2019-01-21 ProblemAct [facility] Chest pain active 2018-11-13 ProblemAct [facility]
== END 2024-04-09 14:54 | disposition home or self-care (01) ==
PROVIDERS: PCP Internal Medicine; Visit Provider Internal Medicine Nephrology
DX: I10 Essential (primary) hypertension (principal); Z94.0 Kidney transplant status; N18.31 Chronic kidney disease, stage 3a
CPT/HCPCS: 99214

== ENCOUNTER → 2024-04-09 14:17 | Outpatient (BNVA) | payer BC, SELFPAY | PROVIDERS: PCP Internal Medicine; Visit Provider Internal Medicine Nephrology ==

== ENCOUNTER 2024-06-11 11:16 | Outpatient (REF) | payer BC, SELFPAY ==
--- OUTSIDE RECORDS SUMMARY | 2024-06-11 12:19 | XMS_ITS | Clinical Summary ---
Author Organization [facility] Address [address] [place] [address] Care Team Providers Care Foundation Maker Name Role Phone Timothy Barron MD Primary Care Provider [phone] Allergies Active Allergy Reactions Criticality Noted Date Comments Iodinated Contrast Media Hives Medium 02/07/2024 Lisinopril Swelling Medium 09/04/2017 angioedema Sulfa Antibiotics Hives Medium 08/11/2013 Medications Medication Sig Dispensed Refills Start Date End Date Status hydrALAZINE (APRESOLINE) 25 MG tablet TK 1 T PO BID 1 01/17/2019 Active atorvastatin (LIPITOR) 20 MG tablet TK 1 T PO QD 0 01/12/2019 Active metoPROLOL SUCCINATE (TOPROL-XL) 100 MG 24 hr tablet TK 1 T PO QD 2 01/18/2019 Active terazosin (HYTRIN) 2 MG capsule Take 2 mg by mouth. Act tyrell acetaminophen (TYLENOL) 325 MG tablet Take 975 mg by mouth 3 times daily (every 8 hours) as needed. 11/14/2018 Active chlorthalidone (HYGROTON) 25 MG tablet Take 25 mg by mouth. Acti ve chlorthalidone (HYGROTON) 25 MG tablet TK 1 T PO QD 4 10/31/2018 Active losartan (COZAAR) 100 MG tablet Take 100 mg by mouth. Active methocarbamol (ROBAXIN) 500 MG tablet TK 1 T PO TID PRN FOR UP TO 7 DAYS 0 11/14/2018 Active atorvastatin (LIPITOR) 20 MG tablet Take 20 mg by mouth. 08/12/2013 Acti ve metoPROLOL SUCCINATE (TOPROL-XL) 100 MG 24 hr tablet Take 100 mg by mouth. A ctive predniSONE (DELTASONE) 20 MG tablet TK 1 T PO QD 0 12/20/2018 Active Tacrolimus (ENVARSUS XR PO) Take 5 mg by mouth 2 (two) times a day. Active mycophenolate (MYFORTIC) 180 MG EC tablet Take by mouth 2 (two) times a day. Active ketoconazole (NIZORAL) 200 MG tablet Take 200 mg by mouth daily. Active NIFEdipine (PROCARDIA XL) 30 MG 24 hr tablet Take 30 mg by mouth daily. Active montelukast (SINGULAIR) 10 MG tablet Take 10 mg by mouth nightly. Active PANTOprazole (PROTONIX) 20 MG tablet Take 20 mg by mouth every morning before breakfast. Active ferrous sulfate 325 (65 FE) MG EC tablet Take 325 mg by mouth daily. Take 2 hours before or 4 hours after acid reducers. Active sodium bicarbonate 650 MG tablet Take 650 mg by mouth 2 (two) times a day. Active magnesium oxide 400 (240 Mg) MG Tab tablet Take 400 mg by mouth daily. Take 2 hours apart from other medications; take with food Active polyethylene glycol-electrolytes (NuLYTELY, TRILYTE) 420 g solutionIndications :Hx of colonic polyps Take as directed for Colonoscopy/GI Procedure. See administration instructions. 4000 mL 02/08/2024 Active Active Problems Problem Noted Date Diagnosed Date Personal history of colonic polyps 01/21/2019 Assessment & Plan (01/21/2019 9:00 AM EDT): A colonoscopy will be scheduled based on current indication. The indications, prep, alternatives and the procedure were thoroughly explained. There is no contraindication to colonoscopy. All questions were answered. The potential risks including but not limited to bleeding, infection, and perforation were also explained. Gastroesophageal reflux disease 01/21/2019 Assessment & Plan (01/21/2019 8:59 AM EDT): Avoid/limit tobacco, alcohol, chocolate, peppermint, caffeine, greasy foods, spicy foods, and acidic foods such as citrus and tomato. Eat smaller, more frequent meals, and do not eat within 2 hours of bedtime. If you have night-time symptoms, elevate the head of the bed 6 to 12 inches. egd set up The risks, benefits and alternatives to the procedure were carefully explained to the patient. The risks include but are not limited to perforation, bleeding, infection, respiratory compromise and . All questions were answered. Chest pain 11/13/2018 Assessment & Plan (01/21/2019 9:00 AM EDT): egd set up Family History Medical History Relation Name Comments Hypertension Mother Relation Name Status Comments Mother Social History Tobacco Use Types Packs/Day Years Used Date Smoking Tobacco: Never Smokeless Tobacco: Never Alcohol Use Standard Drinks/Week Comments Yes 0 (1 standard drink = 0.6 oz pur e alcohol) Sex and Gender Information Value Date Recorded Sex Assigned at Not on file Gender Identity Not on file Sexual Orientation Not on file Last Filed Vital Signs Vital Sign Reading Time Taken Comments Blood Pressure 135/90 01/21/2019 8:41 AM EDT Pulse - - Temperature - - Respiratory Rate - - Oxygen Saturation - - Inhaled Oxygen Concentration - - Weight 93 kg (205 lb) 02/07/2024 4:56 PM EDT Height 182.9 cm (6') 02/07/2024 4:56 PM EDT Body Mass Index 27.8 02/07/2024 4:56 PM EDT Plan of Treatment Health Maintenance Due Date Last Done Comments Hepatitis C Virus Screening 1962 Pneumococcal Vaccine: Pediatric (0-5 Years) and At-Risk Patients (6 to 49 Years) (1 of 2 - PCV) 1968 HIV Screening 11/07/1975 DTaP/Tdap/Td Vaccines (1 - Tdap) 1981 Pneumococcal Vaccines 50+ (1 of 2 - PCV) 1981 Zoster (Shingles) Vaccine (1 of 2) 1981 COVID-19 Vaccine (2 - Jansse n risk series) 08/30/2020 08/02/2020 RSV Vaccine 60 years and older and Patients (1 - Risk 60-74 years 1-dose series) 2022 Influenza Vaccine 12/07/2023 03/28/2022 Colonoscopy 04/18/2029 04/18/2024 (Previously Completed), 03/08/2019 Hepatitis B Vaccines Aged Out No long er eligible based on patient's age to complete this topic Procedures Procedure Name Priority Date/Time Associated Diagnosis Comments PATHOLOGY REPORT 04/18/2024 12:0 0 AM EST from Last 3 Months Results * Pathology (04/18/2024 12:00 AM EST) Mirta Hunter DO PATHOLOGY/CYTOLOGY O RDERABLES from Last 3 Months Care Teams Foundation Maker Relationship Specialty Start Date End Date Timothy Barron MD [address] [address] PCP - General Internal Medicine 11/22/18
--- OUTSIDE RECORDS SUMMARY | 2024-06-11 12:19 | XMS_ITS | Clinical Summary ---
Author Organization [facility] it Address [address] [place] [address] Care Team Providers Care Group Director Name Role Phone Timothy Barron MD Primary Care Provider [phone] Surgical History Surgery Date Site/Laterality Comments TONSILLECTOMY PROCEDURE:TONSILLECTOMY COLONOSCOPY PROCEDURE:COLONOSCOPY UPPER GASTROINTESTINAL ENDOSCOPY 03/08/2019 N/A PROCEDURE:UPPER GASTROINTESTINAL ENDOSCOPY;COMMENT:Procedure: UPPER ENDOSCOPY-EGD; Surgeon: Evan Harrington MD; Location: [facility]; Service: Gastroenterology; Laterality: N/A; COLONOSCOPY 03/08/2019 N/A PROCEDURE:COLONOSCOPY;COMMENT :Procedure: COLONOSCOPY; Surgeon: Evan Harrington MD; Location: [facility]; Service: Gastroenterology; Laterality: N/A; Medical History Medical History Date Comments Hypertension DX:Hypertension Lumbar disc disease DX:Lumbar di sc disease Hypercholesteremia DX:Hyperchole steremia Gout DX:Gout Kidney disease DX:Kidney diseas e Family History Medical History Relation Name Comments [...] on file Sexual Orientation Not on file Obstetrics History Plan of Treatment Health Maintenance Due Date Last Done Comments DTaP,Tdap,and Td Vaccines (1 - Tdap) 1981 Zoster Vaccines (1 of 2) 2012 Colorectal Cancer Screening: Colonoscopy 04/05/2022 Depression Screening 04/05/2022 HIV Screening 04/05/2022 Hepatitis C Screening 04/05/2022 Social Influencers of Health Screening 04/05/2022 Cholesterol Screening (Lipid Panel) 01/31/2023 01/31/2018 Hypertension/CHF/CAD Annual BMP Blood Test 05/16/2023 03/28/2020, 03/28/2020, 11/14/2018, Additional history exists COVID-19 Vaccine (2023- season) 2024 Influenza Vaccine (#1) 2024 RSV Immunization Patients 60+ Years Old (1 - 1-dose 75+ series) 2037 HIB Vaccines Aged Out No longer eligi ble based on patient's age to complete this topic HPV Vaccines Aged Out No longer eligi ble based on patient's age to complete this topic Hepatitis A Vaccines Aged Out No long er eligible based on patient's age to complete this topic Hepatitis B Vaccines Aged Out No long er eligible based on patient's age to complete this topic IPV Vaccines Aged Out No longer eligi ble based on patient's age to complete this topic MMR Vaccines Aged Out No longer eligi ble based on patient's age to complete this topic Meningococcal ACWY Vaccine Aged Out N o longer eligible based on patient's age to complete this topic Pneumococcal Vaccine: Pediatrics (0 to 5 Years) and At-Risk Patients (6 to 64 Years) Aged Out No longer eligible based on patient's age to complete this topic RSV Immunization Patients Under 20 months Aged Out No longer eligible based on patient's age to complete this topic Varicella Vaccines Aged Out No longer eligible based on patient's age to complete this topic Care Teams Group Director Relationship Specialty Start Date End Date Timothy Barron MD [address] [facility] [address] [place], [place] PCP - General Internal Medicine 09/04/17
--- OUTSIDE RECORDS SUMMARY | 2024-06-11 12:19 | XMS_ITS | Clinical Summary ---
Author Organization [facility] Address [address] [place] [address] Phone Care Team Providers Care Advertising Internship Name Role Phone Timothy Barron MD Primary Care Provider [phone] Allergies Active Allergy Reactions Criticality Noted Date Comments Lisinopril Swelling Medium 09/04/2017 angioedema angioedema Sulfa Antibiotics Hives Medium 08/11/2013 Medications atorvastatin (LIPITOR) 20 MG tablet Take 1 tablet by mouth at bed time Active methocarbamol (ROBAXIN) 500 MG tablet Take 1 tablet by mouth 3 (three) times a day Active terazosin (HYTRIN) 2 MG capsule Take 1 capsule by mouth at bed time Active montelukast (SINGULAIR) 10 MG tablet Take 1 tablet by mouth 1 (one) time each day Active Multiple Vitamin (MULTIVITAMIN ADULT PO) Take 1 capsule by mouth 1 (one) time each day Active metoprolol succinate XL (TOPROL-XL) 100 MG 24 hr tablet Take 1.5 tablets (150 mg total) by mouth 1 (one) time each day 135 tablet 3 1 Active [place]-3 Fatty Acids (Fish Oil) 1000 MG capsule delayed-release Take 1 tablet by mouth 1 (one) time each day Active tadalafil (Cialis) 10 MG tablet Take 1 tablet (10 mg total) by mouth 1 (one) time each day if needed for erectile dysfunction 15 tablet 5 1 Active NIFEdipine XL (PROCARDIA XL) 30 MG 24 hr tablet Take 1 tablet (30 mg total) by mouth 1 (one) time each day Do not crush, chew, or split. 90 tablet 3 3 Active hydrALAZINE 100 MG tabletIndication s:Stage 5 chronic kidney disease (HCC) TAKE 1 TABLET IN THE MORNING AND 1 TABLET IN THE EVENING AND 1 TABLET BEFORE BEDTIME. 270 tablet 3 3 Active sodium bicarbonate 650 MG tablet Take 1 tablet (650 mg total) by mouth in the morning and 1 tablet (650 mg total) in the evening. 270 tablet 1 4 Active Active Problems Problem Noted Date Diagnosed Date Stage 5 chronic kidney disease 05/26/2022 Hypertension 05/26/2022 Acute nontraumatic kidney injury 06/29/2020 Chronic kidney disease, stage 4 (severe) 021 Hypertensive renal disease 06/29/2020 Resolved Problems Problem Noted Date Diagnosed Date Resolved Date Gout 06/29/2020 07/23/2021 Gastroesophageal reflux disease 01/21/2019 07/23/2021 Overview (06/29/2020): Last Assessment & Plan: Avoid/limit tobacco, alcohol, chocolate, peppermint, caffeine, greasy [...] compromise and . All questions were answered. History of polyp of colon 01/21/2019 Overview (06/29/2020): Last Assessment & Plan: A colonoscopy will be scheduled based on current indication. The indications, prep, alternatives and the procedure were thoroughly explained. There is no contraindication to colonoscopy. All questions were answered. The potential risks including but not limited to bleeding, infection, and perforation were also explained. Chest pain 11/13/2018 07/23/2021 Overview (06/29/2020): Last Assessment & Plan: egd set up Family History Relation Status Comments Father Mother Alive Social History Tobacco Use Types Packs/Day Years Used Date Smoking Tobacco: Never Smokeless Tobacco: Never Tobacco Cessation:Counseling Given: Not Answered Alcohol Use Standard Drinks/Week Comments Yes 0 (1 standard drink = 0.6 oz pure alcohol) Alcoholic Drinks/day: Occasional social drink Sex and Gender Information Value Date Recorded Sex Assigned at Not on file Legal Sex Male 4:59 PM EST Gender Identity Not on file Sexual Orientation Not on file Last Filed Vital Signs Vital Sign Reading Time Taken Comments Blood Pressure 140/80 12/01/2022 1:47 PM EDT Pulse 84 12/01/2022 1:47 PM EDT Temperature - - Respiratory Rate - - Oxygen Saturation 94% 11/22/2018 12:00 PM EDT Inhaled Oxygen Concentration - - Weight 112 kg (247 lb) 12/01/2022 1:47 PM EDT Height 182.9 cm (6') 08/22/2019 12:00 PM EDT Body Mass Index 33.5 08/22/2019 12:00 PM EDT Plan of Treatment Health Maintenance Due Date Last Done Comments Pneumococcal Vaccine: Pediat rics (0 to 5 Years) and At-Risk Patients (6 to 64 Years) (1 of 2 - PCV) 1968 Colorectal Cancer Screening: Annual FOBT 11/07/2011 Colorectal Cancer Screening: Colonoscopy 11/07/2011 Colorectal Cancer Screening: Sigmoidoscopy 11/07/2011 Influenza Vaccine (#1) 2024 Hepatitis B Vaccine Aged Out No longe r eligible based on patient's age to complete this topic Insurance [place] Care Teams Advertising Internship Relationship Specialty Start Date End Date Timothy Barron MD [address] [facility] [address] [place] [address] PCP - General 05/18/20
--- OUTSIDE RECORDS SUMMARY | 2024-06-11 12:19 | XMS_ITS | Clinical Summary ---
Author Organization [employer] [facility] Address [address] [place] [address] Care Team Providers Care Contract Negotiator Name Role Phone Timothy Barron MD Primary Care Provider [phone] Allergies Active Allergy Reactions Criticality Noted Date Comments Lisinopril Swelling Medium 09/04/2017 angioedema Sulfa Antibiotics Hives Low 08/11/2013 Medications Medication Sig Dispensed Refills Start Date End Date Status atorvastatin (LIPITOR) 20 MG tablet Take 1 tablet (20 mg total) by mouth daily. 30 tablet 1 08/12/2013 Active terazosin (HYTRIN) 2 MG capsule Take 2 mg by mouth daily. 0 Active metoprolol succinate (TOPROL-XL) 24 hr tablet 100 mg Take 100 mg by mouth daily. 0 Active [place]-3 Fatty Acids (FISH OIL OMEGA-3) 1000 MG CAPS Take 1,000 mg by mouth daily. 0 Active allopurinol (ZYLOPRIM) 100 MG tablet TK 1 T PO QD 6 02/16/2019 Active hydrALAZINE (APRESOLINE) 50 MG tablet 1 tab PO BID 3 02/10/2019 Active diazePAM (VALIUM) tablet 5 mg Take 1 tablet (5 mg total) by mouth every 6 (six) hours as needed (neck spams). 12 tablet 0 03/28/2020 Active lidocaine (LIDODERM) 5 % Place 1 patch onto the skin daily. Remove & Discard patch within 12 hours or as directed by MD 30 patch 0 03/28/2020 Active Active Problems Problem Noted Date Diagnosed Date Chest pain 11/13/2018 Family History Medical History Relation Name Comments Hypertension Mother Relation Name Status Comments Mother Social History Tobacco Use Types Packs/Day Years Used Date Smoking Tobacco: Never Smokeless Tobacco: Never Alcohol Use Standard Drinks/Week Comments Yes 0 (1 standard drink = 0.6 oz pur e alcohol) very little Sex and Gender Information Value Date Recorded Sex Assigned at Male 11/13/2018 1:21 PM EDT Gender Identity Not on file Sexual Orientation Not on file Last Filed Vital Signs Vital Sign Reading Time Taken Comments Blood Pressure 167/90 03/28/2020 5:38 PM EST Pulse 80 03/28/2020 5:38 PM EST Temperature 36.6 ??C (97.8 ??F) 03/28/2020 5:38 PM ES T Respiratory Rate 18 03/28/2020 5:38 PM EST Oxygen Saturation 95% 03/28/2020 5:38 PM EST Inhaled Oxygen Concentration - - Weight 97.5 kg (215 lb) 03/28/2020 2:00 PM EST Height 182.9 cm (6') 03/28/2020 2:00 PM EST Body Mass Index 29.16 03/28/2020 2:00 PM EST Plan of Treatment Health Maintenance Due Date Last Done Comments Hepatitis C Screening 1960 COVID-19 Vaccine (#1) 05/09/1963 Depression Screening 1974 BMI Counseling 1980 Preventative Health Evaluation 1980 DTap / Tdap / Td (1 - Tdap) 1981 Shingrix-Zoster Vaccine (1 of 2) 2012 Influenza Vaccine (#1) 2024 Colon Cancer Screening (Colonoscopy) 03/08/2029 03/08/2019 RSV Adult > 60+ Yrs or Pregn ant (1 - 1-dose 75+ series) 2037 Hepatitis B Vaccines Aged Out No long er eligible based on patient's age to complete this topic Pneumococcal Vaccine Aged Out No long er eligible based on patient's age to complete this topic RSV Ped < 20 months Aged Out No longe r eligible based on patient's age to complete this topic Advance Directives For more information, please contact: [phone] Latest Code Status on File Code Status Date Activated Date Inactivated Comments Full Code 03/08/2019 3:38 PM 03/08/2019 10:31 PM This code status was ascertained in the following way: discussion with patient. Code Status History Code Status Date Activated Date Inactivated Comments Full Code 11/13/2018 4:00 PM 11/14/2018 10:01 PM Full Code 08/11/2013 6:29 PM 08/12/2013 9:07 PM This co de status was ascertained in the following way: discussion with patient. Full Code 08/11/2013 6:22 PM 08/11/2013 6:29 PM This co de status was ascertained in the following way: discussion with patient. Care Teams Contract Negotiator Relationship Specialty Start Date End Date Timothy Barron MD PCP - General Internal Medicine 09/04/17
[2024-06-11 17:56] LABS: MANUAL DIFF FLAG NO
[2024-06-11 18:07] LABS: Basophils Percent Auto 0.2 % (0-2); Eosinophils Absolute Auto 0.1 X10*3/uL (0.0-0.4); Eosinophils Percent Auto 0.7 % (0-4); Hematocrit 41.1 % (42.0-52.0); Hemoglobin 12.7 g/dl (14.0-18.0); Imm Gran Abs Auto 0.02 X10*3/uL (0.00-0.03); Imm Gran Pct Auto 0.2 % (0.0-0.4); Lymphocytes Absolute Auto 1.2 X10*3/uL (1.2-4.9); Lymphocytes Percent Auto 14.2 % (20-40); Mean Corpuscular HGB Conc 30.9 g/dl (31.0-36.0); Mean Corpuscular Hemoglobin 24.9 pg (27.0-33.0); Mean Corpuscular Volume 80.6 fL (80.0-98.0); Mean Platelet Volume 9.7 fL (9.4-12.4); Monocytes Absolute Auto 0.6 X10*3/uL (0.1-1.2); Monocytes Percent Auto 6.7 % (2-11); Neutrophils Absolute Auto 6.8 x10*3/uL (2.0-8.3); Platelet Count 311 X10*3/uL (160-400); Red Cell Distribution Width 15.3 % (11.0-16.0); White Blood Count 8.7 X10*3/uL (4.8-10.8)
[2024-06-11 18:16] LABS: Anion Gap 16 (12-20); Blood Urea Nitrogen 28 mg/dL (9-16); Calcium 9.5 mg/dL (8.4-10.2); Carbon Dioxide 22 mmol/L (22-29); Chloride 108 mmol/L (96-108); Estimated Glomerular Filt Rate 31; Magnesium 1.6 mg/dL (1.6-2.6); Phosphorus 2.7 mg/dL (2.7-4.5); Potassium 4.2 mmol/L (3.3-5.1); Sodium 142 mmol/L (135-145)
[2024-06-11 18:18] LABS: Uric Acid 6.6 mg/dL (3.4-7.0)
[2024-06-12 13:58] LABS: Tacrolimus Prograf 10.3 mcg/L
== END 2024-06-11 11:17 | disposition home or self-care (01) ==
LOC: HO.HKASLDS 11:16
PROVIDERS: Visit Provider Internal Medicine Nephrology
DX: N18.31 Chronic kidney disease, stage 3a (principal); Z94.0 Kidney transplant status; I10 Essential (primary) hypertension
CPT/HCPCS: 36415; 80051; 80197; 82310; 82565; 83735; 84100; 84520; 84550; 85025

== ENCOUNTER 2024-06-13 14:34 | Outpatient (AMB) | payer BC, SELFPAY ==
--- NOTE | 2024-06-13 13:53 | HO.NEPHOV ---
Vital Signs 06/13/24 14:14 Height 6 ft Weight 217 lb BMI 29.4 BP 128/80 Blood Pressure Location Lt brachial Position Sitting Pulse 92 Pulse Source Pulse Oximeter Pulse Oximetry (%) 96 Oxygen Delivery Method Room Air Intake Visit Reasons: 2mon follow up w/labs/ Conf Quarry Supervisor Dimension Stone Required: No Accompanied by: Spouse Allergies Sulfa (Sulfonamide Antibiotics) Allergy (Verified 06/13/24 14:13) Hives lisinopril Allergy (Uncoded 12/20/23 10:58) Swelling HPI Comments Details: Bobo was seen in follow up of his renal transplant. 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 He had 0 panel reactive antibodies. Induction was done using Thymoglobulin. He had no delayed graft function and did not require renal replacement therapy. CMV status of the donor was positive and he was positive as well. EBV status of the donor and recipient were positive. Hepatitis-C core antibody for the donor and recipient were negative. His BK virus PCR in the serum and urine were negative. His JJ stent postoperatively was removed on 06/19/2023. He had a prospera protocol on 08 of August which showed decreased risk for rejection. He also had a transplant biopsy on 26 of June for a creatinine of all than 2 which was negative for rejection. He has no history of DSA. He has been on Envarsus and mycophenolate. His Mycelex was discontinued on 06/01/2023 after he was started on ketoconazole. He was on Bactrim and Valcyte which was discontinued on 11/10/2023. He does not have any tremor. He denies urinary symptoms, edema, tremor. He is compliant with his medications. His serum creatinine has improved and stable [facility] Medical History Essential (primary) hypertension Chronic kidney disease, stage 5 Surgical History Kidney transplanted Social History Alcohol intake: never Patient Tobacco Use Status: Never used Tobacco Current occupation: rt handed Review of Systems Const All systems reviewed & are unremarkable except as noted in HPI and below Physical Exam Vital Signs: Last Vital Signs Pulse 92 06/13/24 14:14 BP 128/80 06/13/24 14:14 Pulse Ox 96 06/13/24 14:14 Oxygen Delivery Method Room Air 06/13/24 14:14 BMI result Body Mass Index 29.4 Const General: comfortable and no acute distress Orientation/consciousness: patient oriented x3 HEENT Head: Yes normocephalic Mouth: Normal oral and palatal mucosa present Eyes EOM: EOMs intact bilaterally Neck Neck: Yes supple Resp Auscultation: clear to auscultation bilaterally Cardio Jugular venous distension: no JVD Rate: regular rate GI Palpation (GI): Soft to palpation Auscultation: normal bowel sounds General: Yes no CVA tenderness Back/Spine/Pelvis Back: no CVA tenderness Skin General skin exam: no rashes or lesions noted Neuro General: patient oriented x3 and moves all extremities Extrem General: Yes no pedal edema Results Reviewed Nephrology Results: Hgb 12.7 g/dl (14.0-18.0) L 06/11/24 WBC 8.7 X10*3/uL (4.8-10.8) 06/11/24 Plt Count 311 X10*3/uL (160-400) 06/11/24 Sodium 142 mmol/L (135-145) 06/11/24 Potassium 4.2 mmol/L (3.3-5.1) 06/11/24 Chloride 108 mmol/L (96-108) 06/11/24 Carbon Dioxide 22 mmol/L (22-29) 06/11/24 BUN 28 mg/dL (9-16) H 06/11/24 Creatinine 2.20 mg/dL (0.5-1.4) H 06/11/24 Calcium 9.5 mg/dL (8.4-10.2) 06/11/24 Phosphorus 2.7 mg/dL (2.7-4.5) 06/11/24 Assessment & Plan Assessment & Plan (1) CKD stage 3a, GFR 45-59 ml/min: Code(s): N18.31 - Chronic kidney disease, stage 3a Category: Medical (2) Renal transplant recipient: Code(s): Z94.0 - Kidney transplant status Category: Surgical (3) Essential (primary) hypertension: Code(s): I10 - Essential (primary) hypertension Category: Medical Plan Bobo was seen in follow up of his renal transplant. 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 He had 0 panel reactive antibodies. Induction was done using Thymoglobulin. He had no delayed graft function and did not require renal replacement therapy. CMV status of the donor was positive and he was positive as well. EBV status of the donor and recipient were positive. Hepatitis-C core antibody for the donor and recipient were negative. His BK virus PCR in the serum and urine were negative. His JJ stent postoperatively was removed on 06/19/2023. He had a prospera protocol on 08 of August which showed decreased risk for rejection. He also had a transplant biopsy on 26 of June for a creatinine of all than 2 which was negative for rejection. He has no history of DSA. He has been on Envarsus and mycophenolate. His Mycelex was discontinued on 06/01/2023 after he was started on ketoconazole. He was on Bactrim and Valcyte which was discontinued on 11/10/2023. He does not have any tremor. He denies urinary symptoms, edema, tremor. He is compliant with his medications. His serum creatinine has improved and stable. I reduced his tacrolimus to 3 mg daily. F/U labs ordered Orders: Orders Complete Blood Count Auto Diff 2 Months I10 - Essential (primary) hypertension, N18.31 - Chronic kidney disease, stage 3a, Z94.0 - Kidney transplant status Creatinine 2 Months I10 - Essential (primary) hypertension, N18.31 - Chronic kidney disease, stage 3a, Z94.0 - Kidney transplant status Calcium 2 Months I10 - Essential (primary) hypertension, N18.31 - Chronic kidney disease, stage 3a, Z94.0 - Kidney transplant status Phosphorus 2 Months I10 - Essential (primary) hypertension, N18.31 - Chronic kidney disease, stage 3a, Z94.0 - Kidney transplant status Magnesium 2 Months I10 - Essential (primary) hypertension, N18.31 - Chronic kidney disease, stage 3a, Z94.0 - Kidney transplant status Tacrolimus Prograf 2 Months I10 - Essential (primary) hypertension, N18.31 - Chronic kidney disease, stage 3a, Z94.0 - Kidney transplant status Blood Urea Nitrogen 2 Months I10 - Essential (primary) hypertension, N18.31 - Chronic kidney disease, stage 3a, Z94.0 - Kidney transplant status Electrolytes 2 Months I10 - Essential (primary) hypertension, N18.31 - Chronic kidney disease, stage 3a, Z94.0 - Kidney transplant status Vitamin D 25-OH Total 2 Months I10 - Essential (primary) hypertension, N18.31 - Chronic kidney disease, stage 3a, Z94.0 - Kidney transplant status Parathyroid Hormone Intact 2 Months I10 - Essential (primary) hypertension, N18.31 - Chronic kidney disease, stage 3a, Z94.0 - Kidney transplant status Medications: Changed From tacrolimus XR 4 mg PO DAILY 90 tabs 2RF To tacrolimus XR 4 mg (4 x 1 mg) PO DAILY 90 days 360 tabs 3RF Coding Level of Care Code Est Pt Level 4 (37041) Diagnoses CKD stage 3a, GFR 45-59 ml/min N18.31 Renal transplant recipient Z94.0 Essential (primary) hypertension I10
[2024-06-13 14:14] VITALS: BP 128/80; PULSE 92; O2SAT 96; BMI 29.4
--- OUTSIDE RECORDS SUMMARY | 2024-06-13 14:37 | XMS_ITS | Clinical Summary ---
Author Organization [facility] Address [address] [place] [address] Care Team Providers Care Ivory Polisher Name Role Phone Timothy Barron MD Primary Care Provider [phone] Allergies Active Allergy Reactions Criticality Noted Date [...] Results * Pathology (04/18/2024 12:00 AM EST) Mrita Hunter DO PATHOLOGY/CYTOLOGY O RDERABLES from Last 3 Months Care Teams Ivory Polisher Relationship Specialty Start Date End Date Timothy Barron MD [address] [address] PCP - General Internal Medicine 11/22/18
--- OUTSIDE RECORDS SUMMARY | 2024-06-13 14:37 | XMS_ITS | Clinical Summary ---
Author Organization [facility] it Address [address] [place] [address] Care Team Providers Care Sexual Assault Counselor Name Role Phone Timothy Barron MD Primary Care Provider Surgical History Surgery Date Site/Laterality Comments TONSILLECTOMY PROCEDURE:TONSILLECTOMY COLONOSCOPY PROCEDURE:COLONOSCOPY UPPER GASTROINTESTINAL ENDOSCOPY 03/08/2019 N/A PROCEDURE:UPPER GASTROINTESTINAL ENDOSCOPY;COMMENT:Procedure: UPPER ENDOSCOPY-EGD; Surgeon: Evan Harrington MD; Location: [facility] END[facility]COPY; Service: Gastroenterology; Laterality: N/A; COLONOSCOPY 03/08/2019 N/A PROCEDURE:COLONOSCOPY;COMMENT :Procedure: COLONOSCOPY; Surgeon: Evan Harrington MD; Location: [facility] ENDOSCOPY; Service: Gastroenterology; Laterality: N/A; Medical History [...] age to complete this topic Care Teams Sexual Assault Counselor Relationship Specialty Start Date End Date Timothy Barron MD [address] [facility] [address] [place], [place] PCP - General Internal Medicine 09/04/17
--- OUTSIDE RECORDS SUMMARY | 2024-06-13 14:37 | XMS_ITS | Clinical Summary ---
Author Organization [facility] Address [address] [place] [address] Phone Care Team Providers Care Jig Grinder Name Role Phone Timothy Barron MD Primary Care Provider [phone] Allergies Active Allergy Reactions Criticality Noted Date [...] each day 135 tablet 3 1 Active [place]-3 Fatty Acids (Fish Oil) 1000 MG capsule [...] patient's age to complete this topic Insurance * Guarantor: Bobo Blanca Account Type Relation to Patient Date of Phone Billing Address Personal/Family Self [address] [place] [address] [place] Care Teams Jig Grinder Relationship Specialty Start Date End Date Timothy Barron MD [address] [facility] [address] [place] [address] PCP - General 05/18/20
--- OUTSIDE RECORDS SUMMARY | 2024-06-13 14:37 | XMS_ITS | Clinical Summary ---
Author Organization [facility] Address [address] [place] [address] Care Team Providers Care Asbestos Brake Lining Finisher Helper Name Role Phone Timothy Barron MD Primary Care Provider Allergies Active Allergy Reactions Criticality Noted Date [...] 100 mg by mouth daily. 0 Active [place]-3 Fatty Acids (FISH OIL OMEGA-3) 1000 MG [...] Advance Directives For more information, please contact: [phone] Latest Code Status on File Code Status [...] following way: discussion with patient. Care Teams Asbestos Brake Lining Finisher Helper Relationship Specialty Start Date End Date Timothy Barron MD PCP - General Internal Medicine 09/04/17
== END 2024-06-13 14:50 | disposition home or self-care (01) ==
LOC: HO.HKAS 14:34
PROVIDERS: PCP Internal Medicine; Visit Provider Internal Medicine Nephrology
DX: N18.31 Chronic kidney disease, stage 3a (principal); Z94.0 Kidney transplant status; I10 Essential (primary) hypertension
CPT/HCPCS: 99214

== ENCOUNTER → 2024-06-13 14:34 | Outpatient (BNVA) | payer BC, SELFPAY | PROVIDERS: PCP Internal Medicine; Visit Provider Internal Medicine Nephrology ==

== ENCOUNTER 2024-08-13 14:15 | Outpatient (AMB) | payer BC, SELFPAY ==
--- NOTE | 2024-08-13 14:19 | HO.NEPHOV_ITS ---
Vital Signs 08/13/24 14:24 Height 6 ft Weight 222 lb 8 oz BMI 30.2 BP 140/90 H Blood Pressure Location Lt brachial Position Sitting Pulse 104 H Pulse Source Pulse Oximeter Pulse Oximetry (%) 97 Oxygen Delivery Method Room Air Intake Visit Reasons: 2mon follow up w/labs-Conf Preventive Maintenance Coordinator Required: No Accompanied by: Self / Same As Patient Allergies Sulfa (Sulfonamide Antibiotics) Allergy (Verified 08/13/24 14:24) Hives lisinopril Allergy (Uncoded 12/20/23 10:58) Swelling HPI Comments Details: Bobo was seen in follow up of his renal transplant. 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 He had 0 panel reactive antibodies. Induction was done using Thymoglobulin. He had no delayed graft function and did not require renal replacement therapy. CMV status of the donor was positive and he was positive as well. EBV status of the donor and recipient were positive. Hepatitis-C core antibody for the donor and recipient were negative. His BK virus PCR in the serum and urine were negative. His JJ stent postoperatively was removed on 06/19/2023. He had a prospera protocol on 08 of August which showed decreased risk for rejection. He also had a transplant biopsy on 26 of June for a creatinine of all than 2 which was negative for rejection. He has no history of DSA. He has been on Envarsus and mycophenolate. His Mycelex was discontinued on 06/01/2023 after he was started on ketoconazole. He was on Bactrim and Valcyte which was discontinued on 11/10/2023. He does not have any tremor. He denies urinary symptoms, edema, tremor. He is compliant with his medications. His serum creatinine has improved to 1.7 PFSH Medical History Essential (primary) hypertension Chronic kidney disease, stage 5 Surgical History Kidney transplanted Social History Alcohol intake: never Patient Tobacco Use Status: Never used Tobacco Current occupation: rt handed Review of Systems Const All systems reviewed & are unremarkable except as noted in HPI and below Physical Exam Const General: comfortable and no acute distress Orientation/consciousness: patient oriented x3 HEENT Head: Yes normocephalic Mouth: Normal oral and palatal mucosa present Eyes EOM: EOMs intact bilaterally Neck Neck: Yes supple Resp Auscultation: clear to auscultation bilaterally Cardio Jugular venous distension: no JVD Rate: regular rate GI Palpation (GI): Soft to palpation Auscultation: normal bowel sounds Skin General skin exam: no rashes or lesions noted Neuro General: patient oriented x3 and moves all extremities Extrem General: Yes no pedal edema Results Reviewed Nephrology Results: Hgb 12.7 g/dl (14.0-18.0) L 06/11/24 WBC 8.7 X10*3/uL (4.8-10.8) 06/11/24 Plt Count 311 X10*3/uL (160-400) 06/11/24 Sodium 142 mmol/L (135-145) 06/11/24 Potassium 4.2 mmol/L (3.3-5.1) 06/11/24 Chloride 108 mmol/L (96-108) 06/11/24 Carbon Dioxide 22 mmol/L (22-29) 06/11/24 BUN 28 mg/dL (9-16) H 06/11/24 Creatinine 2.20 mg/dL (0.5-1.4) H 06/11/24 Calcium 9.5 mg/dL (8.4-10.2) 06/11/24 Phosphorus 2.7 mg/dL (2.7-4.5) 06/11/24 Assessment & Plan Assessment & Plan (1) CKD stage 3a, GFR 45-59 ml/min: Code(s): N18.31 - Chronic kidney disease, stage 3a Category: Medical (2) Renal transplant recipient: Code(s): Z94.0 - Kidney transplant status Category: Surgical (3) Essential (primary) hypertension: Code(s): I10 - Essential (primary) hypertension Category: Medical Plan Bobo was seen in follow up of his renal transplant. 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 He had 0 panel reactive antibodies. Induction was done using Thymoglobulin. He had no delayed graft function and did not require renal replacement therapy. CMV status of the donor was positive and he was positive as well. EBV status of the donor and recipient were positive. Hepatitis-C core antibody for the donor and recipient were negative. His BK virus PCR in the serum and urine were negative. His JJ stent postoperatively was removed on 06/19/2023. He had a prospera protocol on 08 of August which showed decreased risk for rejection. He also had a transplant biopsy on 26 of June for a creatinine of all than 2 which was negative for rejection. He has no history of DSA. He has been on Envarsus and mycophenolate. His Mycelex was discontinued on 06/01/2023 after he was started on ketoconazole. He was on Bactrim and Valcyte which was discontinued on 11/10/2023. He does not have any tremor. He denies urinary symptoms, edema, t remor. He is compliant with his medications. His serum creatinine is better. F/U labs ordered Orders: Orders Calcium 6 Weeks I10 - Essential (primary) hypertension, N18.31 - Chronic kidney disease, stage 3a, Z94.0 - Kidney transplant status Electrolytes 6 Weeks I10 - Essential (primary) hypertension, N18.31 - Chronic kidney disease, stage 3a, Z94.0 - Kidney transplant status Blood Urea Nitrogen 6 Weeks I10 - Essential (primary) hypertension, N18.31 - Chronic kidney disease, stage 3a, Z94.0 - Kidney transplant status Alanine Aminotransferase 6 Weeks I10 - Essential (primary) hypertension, N18.31 - Chronic kidney disease, stage 3a, Z94.0 - Kidney transplant status Parathyroid Hormone Intact 6 Weeks I10 - Essential (primary) hypertension, N18.31 - Chronic kidney disease, stage 3a, Z94.0 - Kidney transplant status Tacrolimus Prograf 6 Weeks I10 - Essential (primary) hypertension, N18.31 - Chronic kidney disease, stage 3a, Z94.0 - Kidney transplant status Complete Blood Count Auto Diff 6 Weeks I10 - Essential (primary) hypertension, N18.31 - Chronic kidney disease, stage 3a, Z94.0 - Kidney transplant status Magnesium 6 Weeks I10 - Essential (primary) hypertension, N18.31 - Chronic kidney disease, stage 3a, Z94.0 - Kidney transplant status Phosphorus 6 Weeks I10 - Essential (primary) hypertension, N18.31 - Chronic kidney disease, stage 3a, Z94.0 - Kidney transplant status Creatinine 6 Weeks I10 - Essential (primary) hypertension, N18.31 - Chronic kidney disease, stage 3a, Z94.0 - Kidney transplant status Aspartate Amino Transferase 6 Weeks I10 - Essential (primary) hypertension, N18.31 - Chronic kidney disease, stage 3a, Z94.0 - Kidney transplant status Coding Level of Care Code Est Pt Level 4 (78317) Diagnoses CKD stage 3a, GFR 45-59 ml/min N18.31 Renal transplant recipient Z94.0 Essential (primary) hypertension I10
[2024-08-13 14:24] VITALS: BP 140/90; PULSE 104; O2SAT 97; BMI 30.2
--- OUTSIDE RECORDS SUMMARY | 2024-08-13 17:24 | XMS_ITS | Clinical Summary ---
Author Organization [facility] Address [address] [place] [address] Care Team Providers Care Arts Administrator Or Manager Name Role Phone Timothy Barron MD Primary [...] 100 mg by mouth daily. 0 Active [place]-3 Fatty Acids (FISH OIL OMEGA-3) 1000 MG [...] Advance Directives For more information, please contact: [phone] Latest Code Status on File Code Status [...] following way: discussion with patient. Care Teams Arts Administrator Or Manager Relationship Specialty Start Date End Date Timothy Barron MD PCP - General Internal Medicine 09/04/17
--- OUTSIDE RECORDS SUMMARY | 2024-08-13 17:24 | XMS_ITS | Clinical Summary ---
Author Organization [facility] Address [address] [place] [address] Care Team Providers Care Bias Cutting Machine Operator Name Role Phone Timothy Barron MD Primary Care Provider [phone] Allergies Active Allergy Reactions Criticality Noted Date [...] age to complete this topic Care Teams Bias Cutting Machine Operator Relationship Specialty Start Date End Date Timothy Barron MD [address] [facility] [address] [place] [address] PCP - General Internal Medicine 11/22/18
--- OUTSIDE RECORDS SUMMARY | 2024-08-13 17:24 | XMS_ITS | Clinical Summary ---
Author Organization [facility] Address [address] [place] [address] Phone Care Team Providers Care Assembler Filters Name Role Phone Timothy Barron MD Primary Care Provider [phone] Allergies Active Allergy Reactions Criticality Noted Date [...] each day 135 tablet 3 1 Active [place]-3 Fatty Acids (Fish Oil) 1000 MG capsule [...] Colorectal Cancer Screening: Sigmoidoscopy 11/07/2011 Influenza Vaccine (Season Ended) 2025 Hepatitis B Vaccine Aged Out No longe r eligible based on patient's age to complete this topic Insurance [place] Care Teams Assembler Filters Relationship Specialty Start Date End Date Timothy Barron MD [address] [facility] [address] [place] [address] PCP - General 05/18/20
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
== END 2024-08-13 14:47 | disposition home or self-care (01) ==
LOC: HO.HKAS 14:16
PROVIDERS: PCP Internal Medicine; Visit Provider Internal Medicine Nephrology
DX: N18.31 Chronic kidney disease, stage 3a (principal); Z94.0 Kidney transplant status; I10 Essential (primary) hypertension
CPT/HCPCS: 99214

== ENCOUNTER 2024-10-23 09:24 | Outpatient (REF) | payer BC, SELFPAY ==
--- OUTSIDE RECORDS SUMMARY | 2024-10-23 10:19 | XMS_ITS | Clinical Summary ---
Author Organization [facility] Address [address] [place] [address] Care Team Providers Care Pinsetter Mechanic Helper Name Role Phone Timothy Barron MD [...] 100 mg by mouth daily. 0 Active [place]-3 Fatty Acids (FISH OIL OMEGA-3) 1000 MG [...] 80 03/28/2020 5:38 PM EST Temperature 36.6 C (97.8 F) 03/28/2020 5:38 PM EST Respiratory Rate 18 03/28/2020 5:38 PM EST [...] Vaccine (1 of 2) 2012 Influenza Vaccine (Season Ended) 2025 Colon Cancer Screening (Colonoscopy) 03/08/2029 03/08/2019 RSV [...] Advance Directives For more information, please contact: [phone] Latest Code Status on File Code Status [...] following way: discussion with patient. Care Teams Pinsetter Mechanic Helper Relationship Specialty Start Date End Date Timothy Barron MD PCP - General Internal Medicine 09/04/17
[2024-10-23 17:55] LABS: MANUAL DIFF FLAG NO
[2024-10-23 18:14] LABS: Basophils Percent Auto 0.5 % (0-2); Eosinophils Absolute Auto 0.1 X10*3/uL (0.0-0.4); Hematocrit 42.2 % (42.0-52.0); Hemoglobin 12.8 g/dl (14.0-18.0); Imm Gran Abs Auto 0.01 X10*3/uL (0.00-0.03); Imm Gran Pct Auto 0.1 % (0.0-0.4); Lymphocytes Absolute Auto 1.4 X10*3/uL (1.2-4.9); Lymphocytes Percent Auto 18.7 % (20-40); Mean Corpuscular HGB Conc 30.3 g/dl (31.0-36.0); Mean Corpuscular Hemoglobin 24.9 pg (27.0-33.0); Mean Corpuscular Volume 81.9 fL (80.0-98.0); Mean Platelet Volume 9.5 fL (9.4-12.4); Monocytes Absolute Auto 0.5 X10*3/uL (0.1-1.2); Monocytes Percent Auto 6.1 % (2-11); Neutrophils Absolute Auto 5.7 x10*3/uL (2.0-8.3); Neutrophils Percent Auto 73.6 % (45-73); Platelet Count 303 X10*3/uL (160-400); Red Blood Count 5.15 X10*6/uL (4.60-5.80); Red Cell Distribution Width 15.8 % (11.0-16.0); White Blood Count 7.7 X10*3/uL (4.8-10.8)
[2024-10-23 18:26] LABS: Alanine Aminotransferase 15 U/L (0-40); Anion Gap 11 (12-20); Aspartate Amino Transferase 20 U/L (5-37); Blood Urea Nitrogen 20 mg/dL (9-16); Calcium 9.3 mg/dL (8.4-10.2); Carbon Dioxide 25 mmol/L (22-29); Chloride 110 mmol/L (96-108); Estimated Glomerular Filt Rate 38; Magnesium 1.6 mg/dL (1.6-2.6); Phosphorus 2.4 mg/dL (2.7-4.5); Potassium 3.9 mmol/L (3.3-5.1); Sodium 142 mmol/L (135-145)
[2024-10-23 18:27] LABS: Parathyroid Hormone Intact 103.5 pg/mL (8.7-77.1)
[2024-10-24 13:58] LABS: Tacrolimus Prograf 5.9 mcg/L
== END 2024-10-23 09:25 | disposition home or self-care (01) ==
LOC: HO.HKASLDS 09:24
PROVIDERS: Visit Provider Internal Medicine Nephrology
DX: N18.31 Chronic kidney disease, stage 3a (principal); Z94.0 Kidney transplant status; I10 Essential (primary) hypertension
CPT/HCPCS: 36415; 80051; 80197; 82310; 82565; 83735; 83970; 84100; 84450; 84460; 84520; 85025

== ENCOUNTER 2024-10-24 15:56 | Outpatient (AMB) | payer BC, SELFPAY ==
--- NOTE | 2024-10-24 16:11 | HO.NEPHOV_ITS ---
Vital Signs 10/24/24 16:18 Height 6 ft Weight 222 lb 4 oz BMI 30.1 BP 130/80 Blood Pressure Location Lt brachial Position Sitting Pulse 93 Pulse Source Pulse Oximeter Pulse Oximetry (%) 96 Oxygen Delivery Method Room Air Intake Visit Reasons: 2 MO [facility] Wafer Substrate Tester Required: No Accompanied by: Self / Same As Patient Allergies Sulfa (Sulfonamide Antibiotics) Allergy (Verified 10/24/24 16:16) Hives lisinopril Allergy (Uncoded 12/20/23 10:58) Swelling HPI Comments Details: Bobo was seen in follow up of his renal transplant. 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 He had 0 panel reactive antibodies. Induction was done using Thymoglobulin. He had no delayed graft function and did not require renal replacement therapy. CMV status of the donor was positive and he was positive as well. EBV status of the donor and recipient were positive. Hepatitis-C core antibody for the donor and recipient were negative. His BK virus PCR in the serum and urine were negative. His JJ stent postoperatively was removed on 06/19/2023. He had a prospera protocol on 08 of August which showed decreased risk for rejection. He also had a transplant biopsy on 26 of June for a creatinine of all than 2 which was negative for rejection. He has no history of DSA. He has been on Envarsus and mycophenolate. His Mycelex was discontinued on 06/01/2023 after he was started on ketoconazole. He was on Bactrim and Valcyte which was discontinued on 11/10/2023. He does not have any tremor. He denies urinary symptoms, edema, tremor. He is compliant with his medications. His serum creatinine has improved to 1.8 [facility] Medical History Essential (primary) hypertension Chronic kidney disease, stage 5 Surgical History Kidney transplanted Social History Alcohol intake: never Patient Tobacco Use Status: Never used Tobacco Current occupation: rt handed Review of Systems Const All systems reviewed & are unremarkable except as noted in HPI and below Physical Exam Vital Signs: Last Vital Signs Pulse 93 10/24/24 16:18 BP 130/80 10/24/24 16:18 Pulse Ox 96 10/24/24 16:18 Oxygen Delivery Method Room Air 10/24/24 16:18 BMI result Body Mass Index 30.1 Const General: comfortable and no acute distress Orientation/consciousness: patient oriented x3 HEENT Head: Yes normocephalic Mouth: Normal oral and palatal mucosa present Eyes EOM: EOMs intact bilaterally Neck Neck: Yes supple Resp Auscultation: clear to auscultation bilaterally Cardio Jugular venous distension: no JVD Rate: regular rate GI Palpation (GI): Soft to palpation Auscultation: normal bowel sounds General: Yes no CVA tenderness Back/Spine/Pelvis Back: no CVA tenderness Skin General skin exam: no rashes or lesions noted Neuro General: patient oriented x3 and moves all extremities Extrem General: Yes no pedal edema Results Reviewed Nephrology Results: Hgb, (14.0-18.0) 12.8 g/dl L 10/23/24 WBC, (4.8-10.8) 7.7 X10*3/uL 10/23/24 Plt Count, (160-400) 303 X10*3/uL 10/23/24 Sodium, (135-145) 142 mmol/L 10/23/24 Potassium, (3.3-5.1) 3.9 mmol/L 10/23/24 Chloride, (96-108) 110 mmol/L H 10/23/24 Carbon Dioxide, (22-29) 25 mmol/L 10/23/24 BUN, (9-16) 20 mg/dL H 10/23/24 Creatinine, (0.5-1.4) 1.82 mg/dL H 10/23/24 Calcium, (8.4-10.2) 9.3 mg/dL 10/23/24 Phosphorus, (2.7-4.5) 2.4 mg/dL L 10/23/24 PTH Intact, (8.7-77.1) 103.5 pg/mL H 10/23/24 Assessment & Plan Assessment & Plan (1) CKD stage 3a, GFR 45-59 ml/min: Code(s): N18.31 - Chronic kidney disease, stage 3a Category: Medical (2) Essential (primary) hypertension: Code(s): I10 - Essential (primary) hypertension Category: Medical (3) Renal transplant recipient: Code(s): Z94.0 - Kidney transplant status Category: Surgical Plan Bobo was seen in follow up of his renal transplant. 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 He had 0 panel reactive antibodies. Induction was done using Thymoglobulin. He had no delayed graft function and did not require renal replacement therapy. CMV status of the donor was positive and he was positive as well. EBV status of the donor and recipient were positive. Hepatitis-C core antibody for the donor and recipient were negative. His BK virus PCR in the serum and urine were negative. His JJ stent postoperatively was removed on 06/19/2023. He had a prospera protocol on 08 of August which showed decreased risk for rejection. He also had a transplant biopsy on June for a creatinine of all than 2 which was negative for rejection. He has no history of DSA. He has been on Envarsus and mycophenolate. His Mycelex was discontinued on 06/01/2023 after he was started on ketoconazole. He was on Bactrim and Valcyte which was discontinued on 11/10/2023. He does not have any tremor. He denies urinary symptoms, edema, tremor. He is compliant with his medications. His serum creatinine is better. F/U labs ordered Orders: Orders Complete Blood Count Auto Diff 2 Months I10 - Essential (primary) hypertension, N18.31 - Chronic kidney disease, stage 3a, Z94.0 - Kidney transplant status Electrolytes 2 Months I10 - Essential (primary) hypertension, N18.31 - Chronic kidney disease, stage 3a, Z94.0 - Kidney transplant status Phosphorus 2 Months I10 - Essential (primary) hypertension, N18.31 - Chronic kidney disease, stage 3a, Z94.0 - Kidney transplant status Aspartate Amino Transferase 2 Months I10 - Essential (primary) hypertension, N18.31 - Chronic kidney disease, stage 3a, Z94.0 - Kidney transplant status Albumin Level 2 Months I10 - Essential (primary) hypertension, N18.31 - Chronic kidney disease, stage 3a, Z94.0 - Kidney transplant status Creatinine 2 Months I10 - Essential (primary) hypertension, N18.31 - Chronic kidney disease, stage 3a, Z94.0 - Kidney transplant status Blood Urea Nitrogen 2 Months I10 - Essential (primary) hypertension, N18.31 - Chronic kidney disease, stage 3a, Z94.0 - Kidney transplant status Calcium 2 Months I10 - Essential (primary) hypertension, N18.31 - Chronic kidney disease, stage 3a, Z94.0 - Kidney transplant status Magnesium 2 Months I10 - Essential (primary) hypertension, N18.31 - Chronic kidney disease, stage 3a, Z94.0 - Kidney transplant status Alanine Aminotransferase 2 Months I10 - Essential (primary) hypertension, N18.31 - Chronic kidney disease, stage 3a, Z94.0 - Kidney transplant status Tacrolimus Prograf 2 Months I10 - Essential (primary) hypertension, N18.31 - Chronic kidney disease, stage 3a, Z94.0 - Kidney transplant status Protein Creatinine Ratio, Ur 2 Months I10 - Essential (primary) hypertension, N18.31 - Chronic kidney disease, stage 3a, Z94.0 - Kidney transplant status UA and rflx microscopic 2 Months I10 - Essential (primary) hypertension, N18.31 - Chronic kidney disease, stage 3a, Z94.0 - Kidney transplant status Coding Level of Care Code Est Pt Level 4 (30422) Diagnoses CKD stage 3a, GFR 45-59 ml/min N18.31 Essential (primary) hypertension I10 Renal transplant recipient Z94.0
[2024-10-24 16:18] VITALS: BP 130/80; PULSE 93; O2SAT 96; BMI 30.1
--- OUTSIDE RECORDS SUMMARY | 2024-10-24 16:53 | XMS_ITS | Clinical Summary ---
Author Organization [employer] [facility] Address [address] [place] [address] Care Team Providers Care Campaign Developer Name Role Phone Timothy Barron MD Primary Care Provider [phone] Allergies Active Allergy Reactions Criticality Noted Date [...] 100 mg by mouth daily. 0 Active [place]-3 Fatty Acids (FISH OIL OMEGA-3) 1000 MG [...] Advance Directives For more information, please contact: [phone] Latest Code Status on File Code Status [...] following way: discussion with patient. Care Teams Campaign Developer Relationship Specialty Start Date End Date Timothy Barron MD PCP - General Internal Medicine 09/04/17
== END 2024-10-24 16:35 | disposition home or self-care (01) ==
LOC: HO.HKAS 15:57
PROVIDERS: PCP Internal Medicine; Visit Provider Internal Medicine Nephrology
DX: N18.31 Chronic kidney disease, stage 3a (principal); I10 Essential (primary) hypertension; Z94.0 Kidney transplant status
CPT/HCPCS: 99214

== ENCOUNTER → 2024-10-24 15:56 | Outpatient (BNVA) | payer BC, SELFPAY | PROVIDERS: PCP Internal Medicine; Visit Provider Internal Medicine Nephrology ==

== ENCOUNTER 2024-12-23 10:25 | Outpatient (REF) | payer BC, SELFPAY ==
--- OUTSIDE RECORDS SUMMARY | 2024-12-23 11:27 | XMS_ITS | Clinical Summary ---
Author Organization [facility] Address [address] [place] [address] Care Team Providers Care Fuel Cell Technician Name Role Phone Timothy Barron MD Primary [...] 100 mg by mouth daily. 0 Active [place]-3 Fatty Acids (FISH OIL OMEGA-3) 1000 MG [...] (1 of 2) 2012 Influenza Vaccine (#1) 2025 Colon Cancer Screening (Colonoscopy) 03/08/2029 03/08/2019 [...] Advance Directives For more information, please contact: [phone] Latest Code Status on File Code Status [...] following way: discussion with patient. Care Teams Fuel Cell Technician Relationship Specialty Start Date End Date Timothy Barron MD PCP - General Internal Medicine 09/04/17
--- OUTSIDE RECORDS SUMMARY | 2024-12-23 11:27 | XMS_ITS | Clinical Summary ---
Author Organization [facility] Address [address] [place] [address] Care Team Providers Care Stone Processing Machine Operator Name Role Phone Timothy Barron MD Primary Care Provider [phone] Allergies Active Allergy Reactions Criticality Noted Date Comments Iodinated Contrast Media Hives Medium 02/07/2024 Lisinopril Swelling Medium 09/04/2017 angioedema Sulfa Antibiotics Hives Medium 08/11/2013 Medications hydrALAZINE (APRESOLINE) 25 MG tablet TK 1 T PO BID 1 01/18/20 19 Active atorvastatin (LIPITOR) 20 MG tablet TK 1 T PO QD 0 01/13/20 19 Active metoPROLOL SUCCINATE (TOPROL-XL) 100 MG 24 hr tablet TK 1 T PO QD 2 01/19/20 19 Active terazosin (HYTRIN) 2 MG capsule Take 2 mg by mouth. Active acetaminophen (TYLENOL) 325 MG tablet Take 975 mg by mouth 3 times daily (every 8 hours) as needed. 11/15/19 19 Active chlorthalidone (HYGROTON) 25 MG tablet Take 25 mg by mouth. Active chlorthalidone (HYGROTON) 25 MG tablet TK 1 T PO QD 4 11/01/19 19 Active losartan (COZAAR) 100 MG tablet Take 100 mg by mouth. Active methocarbamol (ROBAXIN) 500 MG tablet TK 1 T PO TID PRN FOR UP TO 7 DAYS 0 11/15/19 19 Active atorvastatin (LIPITOR) 20 MG tablet Take 20 mg by mouth. 08/13/19 14 Active metoPROLOL SUCCINATE (TOPROL-XL) 100 MG 24 hr tablet Take 100 mg by mouth. Active predniSONE (DELTASONE) 20 MG tablet TK 1 T PO QD 0 12/21/19 19 Active Tacrolimus (ENVARSUS XR PO) Take 5 [...] other medications; take with food Active polyethylene glycol-electrol ytes (NuLYTELY, TRILYTE) 420 g solutionIndicat ions:Hx of colonic polyps Take as directed for Colonoscopy/GI Procedure. See administration instructions. 4000 mL 02/08/20 24 Active Active Problems Problem Noted Date Diagnosed [...] at Not on file Legal Sex Male 6:48 PM EST Gender Identity Not on file [...] Done Comments Hepatitis C Virus Screening 1960 HIV Screening 11/07/1975 DTaP/Tdap/Td Vaccines (1 - Tdap) 1981 Pneumococcal Vaccines 50+ (1 of 2 - PCV) 1981 Zoster (Shingles) Vaccine (1 of 2) 1981 COVID-19 Vaccine (2 - Jansse n risk series) 08/30/2020 08/02/2020 RSV Vaccine 60 years and older and Patients (1 - Risk 60-74 years 1-dose series) 2022 Influenza Vaccine 12/06/2024 03/28/2022 Colonoscopy 04/18/2029 04/18/2024 (Previously Completed), 03/08/2019 Hepatitis B Vaccines Aged Out No long er eligible based on patient's age to complete this topic Insurance [employer] PPO Care Teams Stone Processing Machine Operator Relationship Specialty Start Date End Date Timothy Barron MD [address] [place] [address] PCP - General Internal Medicine 11/22/18
--- OUTSIDE RECORDS SUMMARY | 2024-12-23 11:27 | XMS_ITS | Clinical Summary ---
Author Organization [facility] Address [address] [place] [address] Phone Care Team Providers Care Coat Fitter Name Role Phone Timothy Barron MD Primary Care Provider [phone] Allergies Active Allergy Reactions Criticality Noted Date [...] each day 135 tablet 3 1 Active [place]-3 Fatty Acids (Fish Oil) 1000 MG capsule [...] Due Date Last Done Comments Pneumococcal Vaccine: 50+ Ye ars (1 of 2 - PCV) 1981 Colorectal Cancer Screening: Annual FOBT 11/07/2011 Colorectal Cancer Screening: Colonoscopy 11/07/2011 Colorectal Cancer Screening: Sigmoidoscopy 11/07/2011 Influenza Vaccine (#1) 2025 Hepatitis B Vaccine Aged Out No longe r eligible based on patient's age to complete this topic Insurance [place] Care Teams Coat Fitter Relationship Specialty Start Date End Date Timothy Barron MD [address] [place] [address] [address] [place] [address] PCP - General 05/18/20
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
--- OUTSIDE RECORDS SUMMARY | 2024-12-23 11:27 | XMS_ITS | Encounter Summary ---
Author Organization [facility] Address [address] [place] [phone] Phone Care Team Providers Care Rehabilitation Worker Name Role Phone Timothy Barron MD Primary Care Provider Encounter Details Date Type Department Care Team (Late st Contact Info) Description 07/17/2018 Procedure [facility] [address] [place] [address] Social History Tobacco Use Types Packs/Day Years Used Date Smoking Tobacco: Never Assessed Sex and Gender Information Value Date Recorded Sex Assigned at Not on file Legal Sex Male 3:46 PM EST Gender Identity Not on file Sexual Orientation Not on file documented as of this encounter Plan of Treatment Not on file documented as of this encounter Visit Diagnoses Not on filedocumented in this encounter Care Teams Rehabilitation Worker Relationship Specialty Start Date End Date Timothy Barron MD PCP - General Internal Medicine 06/14/16 documented as of this encounter Additional Source Comments The information contained in this document represents components of the legal health record. It is not the complete legal health record.[facility]
--- OUTSIDE RECORDS SUMMARY | 2024-12-23 11:27 | XMS_ITS | Clinical Summary ---
Author Organization [facility] Address [address] [place] [address] Phone Care Team Providers Care Supervisor Sewer System Name Role Phone Timothy Barron MD Primary [...] to 10 days. 15 tablet 06/21/2024 Active Surgical History Surgery Date Site/Laterality Comments TONSILLECTOMY PROCEDURE:TONSILLECTOMY COLONOSCOPY PROCEDURE:COLONOSCOPY UPPER GASTROINTESTINAL ENDOSCOPY 03/08/2019 N/A PROCEDURE:UPPER GASTROINTESTINAL ENDOSCOPY;COMMENT:Procedure: UPPER ENDOSCOPY-EGD; Surgeon: Evan Harrington MD; Location: [facility]; Service: Gastroenterology; Laterality: N/A; COLONOSCOPY 03/08/2019 N/A PROCEDURE:COLONOSCOPY;COMMENT :Procedure: COLONOSCOPY; Surgeon: Evan Harrington MD; Location: [facility]; Service: Gastroenterology; Laterality: N/A; [...] 86 06/21/2024 4:43 PM EST Temperature 36.9 C (98.4 F) 06/21/2024 4:43 PM EST Respiratory Rate 18 06/21/2024 4:43 PM EST [...] 2) 1981 Colorectal Cancer Screening: Colonoscopy 04/05/2022 HIV Screening 04/05/2022 Hepatitis C Screening 04/05/2022 Social Influencers of Health Screening 04/05/2022 RSV Immunization Adult Patients (1 - Risk 60-74 years 1-dose series) 2022 Cholesterol Screening (Lipid Panel) 01/31/2023 01/31/2018 Hypertension/CHF/CAD Annual BMP Blood Test 05/16/2023 03/28/2020, 03/28/2020, 11/14/2018, Additional history exists COVID-19 Vaccine ( season) 2024 10/14/2021, 08/02/2020 Depression Screening 05/08/2024 Influenza Vaccine (#1) 2025 03/28/2022 Pneumococcal Vaccine: 50+ Years Completed 12/12/2022 HIB Vaccines Aged Out No [...] patient's age to complete this topic Insurance [place]) [employer] [place] - [place] ([place]) Care Teams Supervisor Sewer System Relationship Specialty Start Date End Date Timothy Barron MD [address] [facility] [address] [place], [place] PCP - General Internal Medicine 09/04/17
[2024-12-23 13:11] LABS: MANUAL DIFF FLAG NO
[2024-12-23 13:13] LABS: Hematocrit 41.3 % (42.0-52.0); Hemoglobin 13.3 g/dl (14.0-18.0); Imm Gran Abs Auto 0.03 X10*3/uL (0.00-0.03); Imm Gran Pct Auto 0.4 % (0.0-0.4); Lymphocytes Absolute Auto 1.5 X10*3/uL (1.2-4.9); Mean Corpuscular HGB Conc 32.2 g/dl (31.0-36.0); Mean Corpuscular Hemoglobin 25.7 pg (27.0-33.0); Mean Corpuscular Volume 79.7 fL (80.0-98.0); NRBC Abs Auto 0.000 X10*3/uL (0.0-0.012); NRBC Pct Auto 0.0 /100WBC (0.0-0.2); Platelet Count 313 X10*3/uL (160-400); Red Blood Count 5.18 X10*6/uL (4.60-5.80); White Blood Count 7.4 X10*3/uL (4.8-10.8)
[2024-12-23 13:28] LABS: Alanine Aminotransferase 19 U/L (0-40); Albumin Level 4.5 g/dL (3.5-5.0); Anion Gap 12 (12-20); Aspartate Amino Transferase 18 U/L (5-37); Blood Urea Nitrogen 24 mg/dL (9-16); Calcium 9.3 mg/dL (8.4-10.2); Carbon Dioxide 23 mmol/L (22-29); Chloride 109 mmol/L (96-108); Estimated Glomerular Filt Rate 38; Magnesium 1.7 mg/dL (1.6-2.6); Potassium 4.0 mmol/L (3.3-5.1); Sodium 140 mmol/L (135-145)
[2024-12-24 13:08] LABS: Tacrolimus Prograf 5.7 mcg/L
== END 2024-12-23 10:26 | disposition home or self-care (01) ==
LOC: HO.HKASLDS 10:25
PROVIDERS: Visit Provider Internal Medicine Nephrology
DX: I12.9 Hypertensive chronic kidney disease with stage 1 through stage 4 chronic kidney disease, or unspecified chronic kidney disease (principal); N18.31 Chronic kidney disease, stage 3a; Z94.0 Kidney transplant status
CPT/HCPCS: 36415; 80051; 80197; 82040; 82310; 82565; 83735; 84100; 84450; 84460; 84520; 85025

== ENCOUNTER 2024-12-24 15:16 | Outpatient (AMB) | payer BC, SELFPAY ==
--- NOTE | 2024-12-24 15:37 | HO.NEPHOV_ITS ---
Vital Signs 12/24/24 15:39 Height 6 ft Weight 228 lb BMI 30.9 BP 150/90 H Blood Pressure Location Lt brachial Position Sitting Pulse 86 Pulse Source Pulse Oximeter Pulse Oximetry (%) 99 Oxygen Delivery Method Room Air Intake Visit Reasons: 2mon follow-up w/labs-Conf Termite Treater Helper Required: No Accompanied by: Self / Same As Patient Allergies Sulfa (Sulfonamide Antibiotics) Allergy (Verified 12/24/24 15:39) Hives lisinopril Allergy (Uncoded 12/20/23 10:58) Swelling HPI Comments Details: Bobo was seen in follow up of his renal transplant. 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 He had 0 panel reactive antibodies. Induction was done using Thymoglobulin. He had no delayed graft function and did not require renal replacement therapy. CMV status of the donor was positive and he was positive as well. EBV status of the donor and recipient were positive. Hepatitis-C core antibody for the donor and recipient were negative. His BK virus PCR in the serum and urine were negative. His JJ stent postoperatively was removed on 06/19/2023. He had a prospera protocol on 08 of August which showed decreased risk for rejection. He also had a transplant biopsy on 26 of June for a creatinine of all than 2 which was negative for rejection. He has no history of DSA. He has been on Envarsus and mycophenolate. His Mycelex was discontinued on 06/01/2023 after he was started on ketoconazole. He was on Bactrim and Valcyte which was discontinued on 11/10/2023. He does not have any tremor. He denies urinary symptoms, edema, tremor. He is compliant with his medications. His serum creatinine has improved to 1.8 [facility] Medical History Essential (primary) hypertension Chronic kidney disease, stage 5 Surgical History Kidney transplanted Social History Alcohol intake: never Patient Tobacco Use Status: Never used Tobacco Current occupation: rt handed Review of Systems Const All systems reviewed & are unremarkable except as noted in HPI and below Physical Exam Vital Signs: Last Vital Signs Pulse 86 12/24/24 15:39 BP 150/90 H 12/24/24 15:39 Pulse Ox 99 12/24/24 15:39 Oxygen Delivery Method Room Air 12/24/24 15:39 BMI result Body Mass Index 30.9 Const General: comfortable and no acute distress Orientation/consciousness: patient oriented x3 HEENT Head: Yes normocephalic Mouth: Normal oral and palatal mucosa present Eyes EOM: EOMs intact bilaterally Neck Neck: Yes supple Resp Auscultation: clear to auscultation bilaterally Cardio Jugular venous distension: no JVD Rate: regular rate GI Palpation (GI): Soft to palpation Auscultation: normal bowel sounds General: Yes no CVA tenderness Back/Spine/Pelvis Back: no CVA tenderness Skin General skin exam: no rashes or lesions noted Neuro General: patient oriented x3 and moves all extremities Extrem General: Yes no pedal edema Results Reviewed Nephrology Results: Hgb, (14.0-18.0) 13.3 g/dl L 12/23/24 WBC, (4.8-10.8) 7.4 X10*3/uL 12/23/24 Plt Count, (160-400) 313 X10*3/uL 12/23/24 Sodium, (135-145) 140 mmol/L 12/23/24 Potassium, (3.3-5.1) 4.0 mmol/L 12/23/24 Chloride, (96-108) 109 mmol/L H 12/23/24 Carbon Dioxide, (22-29) 23 mmol/L 12/23/24 BUN, (9-16) 24 mg/dL H 12/23/24 Creatinine, (0.5-1.4) 1.83 mg/dL H 12/23/24 Calcium, (8.4-10.2) 9.3 mg/dL 12/23/24 Phosphorus, (2.7-4.5) 2.5 mg/dL L 12/23/24 PTH Intact, (8.7-77.1) 103.5 pg/mL H 10/23/24 Assessment & Plan Assessment & Plan (1) Renal transplant recipient: Code(s): Z94.0 - Kidney transplant status Category: Surgical (2) CKD stage 3a, GFR 45-59 ml/min: Code(s): N18.31 - Chronic kidney disease, stage 3a Category: Medical (3) Hypomagnesemia: Code(s): E83.42 - Hypomagnesemia Category: Medical (4) Essential (primary) hypertension: Code(s): I10 - Essential (primary) hypertension Category: Medical Plan Bobo was seen in follow up of his renal transplant. 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 He had 0 panel reactive antibodies. Induction was done using Thymoglobulin. He had no delayed graft function and did not require renal replacement therapy. CMV status of the donor was positive and he was positive as well. EBV status of the donor and recipient were positive. Hepatitis-C core antibody for the donor and recipient were negative. His BK virus PCR in the serum and urine were negative. His JJ stent postoperatively was removed on 06/19/2023. He had a prospera protocol on 08 of August which showed decreased risk for rejection. He also had a transplant bio psy on June for a creatinine of all than 2 which was negative for rejection. He has no history of DSA. He has been on Envarsus and mycophenolate. His Mycelex was discontinued on 06/01/2023 after he was started on ketoconazole. He was on Bactrim and Valcyte which was discontinued on 11/10/2023. He does not have any tremor. He denies urinary symptoms, edema, tremor. He is compliant with his medications. His serum creatinine is stable. F/U labs ordered Orders: Orders Creatinine 2 Months E83.42 - Hypomagnesemia, I10 - Essential (primary) hypertension, N18.31 - Chronic kidney disease, stage 3a, Z94.0 - Kidney transplant status Electrolytes 2 Months E83.42 - Hypomagnesemia, I10 - Essential (primary) hypertension, N18.31 - Chronic kidney disease, stage 3a, Z94.0 - Kidney transplant status Calcium 2 Months E83.42 - Hypomagnesemia, I10 - Essential (primary) hypertension, N18.31 - Chronic kidney disease, stage 3a, Z94.0 - Kidney transplant status Aspartate Amino Transferase 2 Months E83.42 - Hypomagnesemia, I10 - Essential (primary) hypertension, N18.31 - Chronic kidney disease, stage 3a, Z94.0 - Kidney transplant status Tacrolimus Prograf 2 Months E83.42 - Hypomagnesemia, I10 - Essential (primary) hypertension, N18.31 - Chronic kidney disease, stage 3a, Z94.0 - Kidney transplant status Complete Blood Count Auto Diff 2 Months E83.42 - Hypomagnesemia, I10 - Essential (primary) hypertension, N18.31 - Chronic kidney disease, stage 3a, Z94.0 - Kidney transplant status Blood Urea Nitrogen 2 Months E83.42 - Hypomagnesemia, I10 - Essential (primary) hypertension, N18.31 - Chronic kidney disease, stage 3a, Z94.0 - Kidney transplant status Phosphorus 2 Months E83.42 - Hypomagnesemia, I10 - Essential (primary) hypertension, N18.31 - Chronic kidney disease, stage 3a, Z94.0 - Kidney transplant status Magnesium 2 Months E83.42 - Hypomagnesemia, I10 - Essential (primary) hypertension, N18.31 - Chronic kidney disease, stage 3a, Z94.0 - Kidney transplant status Alanine Aminotransferase 2 Months E83.42 - Hypomagnesemia, I10 - Essential (primary) hypertension, N18.31 - Chronic kidney disease, stage 3a, Z94.0 - Kidney transplant status Coding Level of Care Code Est Pt Level 4 (30694) Diagnoses Renal transplant recipient Z94.0 CKD stage 3a, GFR 45-59 ml/min N18.31 Hypomagnesemia E83.42 Essential (primary) hypertension I10
[2024-12-24 15:39] VITALS: BP 150/90; PULSE 86; O2SAT 99; BMI 30.9
--- OUTSIDE RECORDS SUMMARY | 2024-12-24 16:32 | XMS_ITS | Encounter Summary ---
Author Organization [facility] Address [address] [place] [address] Phone Care Team Providers Care Eyewear Consultant Name Role Phone Timothy Barron MD Primary Care Provider Encounter Details Date Type Department Care Team (Late st Contact Info) Description 07/17/2018 Procedure Pass [facility] [address] [place] [address] Social History Tobacco Use Types Packs/Day Years [...] on filedocumented in this encounter Care Teams Eyewear Consultant Relationship Specialty Start Date End Date Timothy Barron MD PCP - General Internal Medicine 06/14/16 documented as of this encounter Additional Source Comments The information contained in this document represents components of the legal health record. It is not the complete legal health record.[facility]
--- OUTSIDE RECORDS SUMMARY | 2024-12-24 16:32 | XMS_ITS | Clinical Summary ---
Author Organization [facility] Address [address] [place] [address] Phone Care Team Providers Care Options Trader Name Role Phone Timothy Barron MD Primary [...] UPPER ENDOSCOPY-EGD; Surgeon: Evan Harrington MD; Location: [facility]; Service: Gastroenterology; Laterality: N/A; COLONOSCOPY 03/08/2019 N/A PROCEDURE:COLONOSCOPY;COMMENT :Procedure: COLONOSCOPY; Surgeon: Evan Harrington MD; Location: [facility]; Service: Gastroenterology; Laterality: N/A; Medical [...] BLUE CROSS - IN (ANTH) Care Teams Options Trader Relationship Specialty Start Date End Date Timothy Barron MD [address] [facility] [address] [place], [place] PCP - General Internal Medicine 09/04/17
--- OUTSIDE RECORDS SUMMARY | 2024-12-24 16:32 | XMS_ITS | Clinical Summary ---
Author Organization [facility] Address [address] [place] [address] Phone Care Team Providers Care Tab Cutting Machine Operator Name Role Phone Timothy Barron MD Primary Care Provider [phone] Allergies Active Allergy Reactions Criticality Noted Date [...] each day 135 tablet 3 1 Active [place]-3 Fatty Acids (Fish Oil) 1000 MG capsule [...] complete this topic Insurance CT Care Teams Tab Cutting Machine Operator Relationship Specialty Start Date End Date Timothy Barron MD [address] [place] [address] [address] [place] [address] PCP - General 05/18/20
--- OUTSIDE RECORDS SUMMARY | 2024-12-24 16:32 | XMS_ITS | Clinical Summary ---
Author Organization [facility] Address [address] [place] [address] Care Team Providers Care Sweeper Driver Name Role Phone Timothy Barron MD Primary Care Provider [phone] Allergies Active Allergy Reactions Criticality Noted Date [...] topic Insurance CROSS CT PPO Care Teams Sweeper Driver Relationship Specialty Start Date End Date Timothy Barron MD [address] [place] [address] PCP - General Internal Medicine 11/22/18
--- OUTSIDE RECORDS SUMMARY | 2024-12-24 16:32 | XMS_ITS | Clinical Summary ---
Author Organization [facility] Address [address] [place] [address] Care Team Providers Care Natural Resource Technician Name Role Phone Timothy Barron MD Primary Care Provider [phone] Allergies Active Allergy Reactions Criticality Noted Date [...] 100 mg by mouth daily. 0 Active [place]-3 Fatty Acids (FISH OIL OMEGA-3) 1000 MG [...] Advance Directives For more information, please contact: [phone] Latest Code Status on File Code Status [...] following way: discussion with patient. Care Teams Natural Resource Technician Relationship Specialty Start Date End Date Timothy Barron MD PCP - General Internal Medicine 09/04/17
== END 2024-12-24 15:52 | disposition home or self-care (01) ==
LOC: HO.HKAS 15:16
PROVIDERS: PCP Internal Medicine; Visit Provider Internal Medicine Nephrology
DX: Z94.0 Kidney transplant status (principal); N18.31 Chronic kidney disease, stage 3a; E83.42 Hypomagnesemia; I10 Essential (primary) hypertension
CPT/HCPCS: 99214

== ENCOUNTER 2025-02-14 09:00 | Outpatient (REF) | payer BC, SELFPAY ==
--- OUTSIDE RECORDS SUMMARY | 2025-02-14 09:25 | XMS_ITS | Encounter Summary ---
Author Organization [facility] Address [address] [place] [address] Phone Care Team Providers Care Sampling Expert Name Role Phone Timothy Barron MD Primary Care Provider Encounter Details Date Type Department Care Team (Late st Contact Info) Description 07/17/2018 Procedure Pass [facility] [address] [place] [address] Social History Tobacco Use Types Packs/Day Years [...] on filedocumented in this encounter Care Teams Sampling Expert Relationship Specialty Start Date End Date Timothy Barron MD PCP - General Internal Medicine 06/14/16 documented as of this encounter Additional Source Comments The information contained in this document represents components of the legal health record. It is not the complete legal health record.[facility]
--- OUTSIDE RECORDS SUMMARY | 2025-02-14 09:25 | XMS_ITS | Clinical Summary ---
Author Organization [employer] [facility] Address [facility] [employer] [facility] [address] [place] [address] Phone Care Team Providers Care Iron Caster Name Role Phone Timothy Barron MD Primary Care Provider Allergies Active Allergy Reactions Criticality Noted Date Comments Sulfa (Sulfonamide Antibiotics) 07/06 Social History Tobacco Use Types Packs/Day Years Used Date Smoking Tobacco: Never Assessed Education Answer Date Recorded Are you interested in more education? Not on samina e 09/02/2022 Are you concerned about learning? Not on file 09/02/2022 No 09/02/2022 No 09/02/2022 Digital Access Answer Date Recorded No 10/03/2022 No 10/03/2022 Reliable internet access at home? Not on file 10/03/2022 Device with a working camera? Not on file Sex and Gender Information Value Date Recorded Sex Assigned at Not on file Legal Sex Male 3:46 PM EST Gender Identity Not on file Sexual Orientation Not on file Plan of Treatment Health Maintenance Due Date Last Done Comments Adult Td,Tdap Booster 1962 DEPRESSION SCREENING 1974 SMOKING Hx and SMOKELESS TOB ACCO SCREENING 11/07/1975 HEPATITIS C SCREENING 1980 HIV ONE-TIME SCREENING (18-6 5 YEARS) 1980 COLOGUARD 11/07/2007 COLONOSCOPY 11/07/2007 COLORECTAL CANCER SCREENING 11/07/2007 FIT TEST 11/07/2007 FOBT 11/07/2007 SIGMOIDOSCOPY 11/07/2007 VIRTUAL COLONOSCOPY 11/07/2007 PNEUMOCOCCAL VACCINES (50+ y ears) (1 of 1 - PCV) 2012 ZOSTER VACCINES (1 of 2) 2012 LIPID PANEL 01/31/2023 01/31/2018 INFLUENZA VACCINE (#1) 2024 COVID-19 VACCINE (2 - 2024-2 6 season) 2025 08/02/2020 RSV VACCINE (1 - 1-dose 75+ series) 2037 HEPATITIS A VACCINES Aged Out No long er eligible based on patient's age to complete this topic HIB VACCINES Aged Out No longer eligi ble based on patient's age to complete this topic MENINGOCOCCAL VACCINES (ACWY) Aged Out No longer eligible based on patient's age to complete this topic MENINGOCOCCAL VACCINES (B) Aged Out N o longer eligible based on patient's age to complete this topic Medical Devices Not on file Insurance CIGNA PPO CIGNA PPO CIGNA PPO CIGNA PPO CIGNA PPO CIGNA PPO CIGNA PPO CIGNA PPO CIGNA PPO Care Teams Iron Caster Relationship Specialty Start Date End Date Timothy Barron MD PCP - General Internal Medicine 06/14/16 Additional Source Comments The information contained in this document represents components of the legal health record. It is not the complete legal health record.[facility]
--- OUTSIDE RECORDS SUMMARY | 2025-02-14 09:25 | XMS_ITS | Clinical Summary ---
Author Organization [facility] Address [address] [place] [address] Care Team Providers Care Mill Manager Name Role Phone Timothy Barron MD Primary Care Provider [phone] Allergies Active Allergy Reactions Criticality Noted Date [...] topic Insurance CROSS [address] PPO Care Teams Mill Manager Relationship Specialty Start Date End Date Timothy Barron MD [address] [place] [address] PCP - General Internal Medicine 11/22/18
--- OUTSIDE RECORDS SUMMARY | 2025-02-14 09:25 | XMS_ITS | Clinical Summary ---
Author Organization [employer] [facility] Address [address] [place] [address] Care Team Providers Care Cellophane Tester Name Role Phone Timothy Barron MD Primary [...] 100 mg by mouth daily. 0 Active [place]-3 Fatty Acids (FISH OIL OMEGA-3) 1000 MG [...] Advance Directives For more information, please contact: [phone] Latest Code Status on File Code Status [...] following way: discussion with patient. Care Teams Cellophane Tester Relationship Specialty Start Date End Date Timothy Barron MD PCP - General Internal Medicine 09/04/17
--- OUTSIDE RECORDS SUMMARY | 2025-02-14 09:26 | XMS_ITS | Clinical Summary ---
Author Organization [facility] Address [address] [place] [address] Phone Care Team Providers Care Analytic Programmer Name Role Phone Timothy Barron MD Primary [...] UPPER ENDOSCOPY-EGD; Surgeon: Evan Harrington MD; Location: [facility]; Service: Gastroenterology; Laterality: N/A; COLONOSCOPY 03/08/2019 N/A PROCEDURE:COLONOSCOPY;COMMENT :Procedure: COLONOSCOPY; Surgeon: Evan Harrington MD; Location: [facility]; Service: Gastroenterology; Laterality: N/A; Medical [...] Health Maintenance Due Date Last Done Comments Colorectal Cancer Screening: Colonoscopy 1960 DTaP,Tdap,and Td Vaccines (1 - Tdap) 1981 Zoster Vaccines (1 of 2) 1981 HIV Screening 04/05/2022 Hepatitis C Screening 04/05/2022 Social Influencers of Health Screening 04/05/2022 RSV Immunization Adult Patients (1 - Risk 60-74 years 1-dose series) 2022 Cholesterol Screening (Lipid Panel) 01/31/2023 01/31/2018 Hypertension/CHF/CAD Annual BMP Blood Test 05/16/2023 03/28/2020, 03/28/2020, 11/14/2018, Additional history exists Depression Screening 05/08/2024 COVID-19 Vaccine (3 - season) 2025 10/14/2021, 08/02/2020 Influenza Vaccine (#1) 2025 03/28/2022 Pneumococcal Vaccine: [...] BLUE CROSS - IN (ANTH) Care Teams Analytic Programmer Relationship Specialty Start Date End Date Timothy Barron MD [address] [facility] [address] [place], [place] PCP - General Internal Medicine 09/04/17
--- OUTSIDE RECORDS SUMMARY | 2025-02-14 09:26 | XMS_ITS | Clinical Summary ---
Author Organization [facility] Address [address] [place] [address] Phone Care Team Providers Care Automotive Center Manager Name Role Phone Timothy Barron MD Primary Care Provider [phone] Allergies Active Allergy Reactions Criticality Noted Date [...] each day 135 tablet 3 1 Active [place]-3 Fatty Acids (Fish Oil) 1000 MG capsule [...] complete this topic Insurance [place] Care Teams Automotive Center Manager Relationship Specialty Start Date End Date Timothy Barron MD [address] [place] [address] [address] [place] [address] PCP - General 05/18/20
[2025-02-14 13:11] LABS: Appearance Urine Clear; Glucose Urine UA 100 mg/dL (Negative); PH 8.0 (5.0-9.0); Specific Gravity - Urine 1.010 (1.005-1.025)
[2025-02-14 13:17] LABS: MANUAL DIFF FLAG NO
[2025-02-14 13:24] LABS: Hematocrit 43.6 % (42.0-52.0); Hemoglobin 13.5 g/dl (14.0-18.0); Imm Gran Abs Auto 0.02 X10*3/uL (0.00-0.03); Imm Gran Pct Auto 0.3 % (0.0-0.4); Lymphocytes Absolute Auto 1.5 X10*3/uL (1.2-4.9); Mean Corpuscular HGB Conc 31.0 g/dl (31.0-36.0); Mean Corpuscular Hemoglobin 24.6 pg (27.0-33.0); Mean Corpuscular Volume 79.6 fL (80.0-98.0); NRBC Abs Auto 0.000 X10*3/uL (0.0-0.012); NRBC Pct Auto 0.0 /100WBC (0.0-0.2); Platelet Count 320 X10*3/uL (160-400); Red Blood Count 5.48 X10*6/uL (4.60-5.80); White Blood Count 7.6 X10*3/uL (4.8-10.8)
[2025-02-14 13:47] LABS: Total Protein Urine Random < 7 mg/dL (<12)
[2025-02-14 13:56] LABS: Alanine Aminotransferase 19 U/L (0-40); Anion Gap 13 (12-20); Aspartate Amino Transferase 25 U/L (5-37); Blood Urea Nitrogen 18 mg/dL (9-16); Calcium 9.2 mg/dL (8.4-10.2); Carbon Dioxide 23 mmol/L (22-29); Chloride 108 mmol/L (96-108); Estimated Glomerular Filt Rate 36; Magnesium 1.5 mg/dL (1.6-2.6); Potassium 4.1 mmol/L (3.3-5.1); Sodium 140 mmol/L (135-145)
[2025-02-15 10:19] LABS: Tacrolimus Prograf 6.4 mcg/L
== END 2025-02-14 09:01 | disposition home or self-care (01) ==
LOC: HO.HKASLDS 09:00
PROVIDERS: PCP Internal Medicine; Visit Provider Internal Medicine Nephrology
DX: I12.9 Hypertensive chronic kidney disease with stage 1 through stage 4 chronic kidney disease, or unspecified chronic kidney disease (principal); N18.31 Chronic kidney disease, stage 3a; E83.42 Hypomagnesemia; Z94.0 Kidney transplant status
CPT/HCPCS: 36415; 80051; 80197; 81003; 82310; 82565; 82570; 83735; 84100; 84156; 84450; 84460; 84520; 85025

== ENCOUNTER 2025-02-18 13:58 | Outpatient (AMB) | payer BC, SELFPAY ==
--- NOTE | 2025-02-18 14:12 | HO.NEPHOV_ITS ---
Vital Signs 02/18/25 14:16 Height 6 ft Weight 227 lb 8 oz BMI 30.9 BP 116/70 Blood Pressure Location Lt brachial Position Sitting Pulse 105 H Pulse Source Pulse Oximeter Pulse Oximetry (%) 96 Oxygen Delivery Method Room Air Intake Visit Reasons: 2mon f/u w/labs Cable Splicing Technician Required: No Accompanied by: Spouse Allergies Sulfa (Sulfonamide Antibiotics) Allergy (Verified 02/18/25 14:15) Hives lisinopril Allergy (Uncoded 12/20/23 10:58) Swelling HPI Comments Details: Bobo was seen in follow up of his renal transplant. 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 He had 0 panel reactive antibodies. Induction was done using Thymoglobulin. He had no delayed graft function and did not require renal replacement therapy. CMV status of the donor was positive and he was positive as well. EBV status of the donor and recipient were positive. Hepatitis-C core antibody for the donor and recipient were negative. His BK virus PCR in the serum and urine were negative. His JJ stent postoperatively was removed on 06/19/2023. He had a prospera protocol on 08 of August which showed decreased risk for rejection. He also had a transplant biopsy on 26 of June for a creatinine of all than 2 which was negative for rejection. He has no history of DSA. He has been on Envarsus and mycophenolate. His Mycelex was discontinued on 06/01/2023 after he was started on ketoconazole. He was on Bactrim and Valcyte which was discontinued on . He does not have any tremor. He denies urinary symptoms, edema, tremor. He is compliant with his medications. His serum creatinine has improved to 1.8 [facility] Medical History Essential (primary) hypertension Chronic kidney disease, stage 5 Surgical History Kidney transplanted Social History Alcohol intake: never Patient Tobacco Use Status: Never used Tobacco Current occupation: rt handed Review of Systems Const All systems reviewed & are unremarkable except as noted in HPI and below Physical Exam Vital Signs: Last Vital Signs Pulse 105 H 02/18/25 14:16 BP 116/70 02/18/25 14:16 Pulse Ox 96 02/18/25 14:16 Oxygen Delivery Method Room Air 02/18/25 14:16 BMI result Body Mass Index 30.9 Const General: comfortable and no acute distress Orientation/consciousness: patient oriented x3 HEENT Head: Yes normocephalic Mouth: Normal oral and palatal mucosa present Eyes EOM: EOMs intact bilaterally Neck Neck: Yes supple Resp Auscultation: clear to auscultation bilaterally Cardio Jugular venous distension: no JVD Rate: regular rate GI Palpation (GI): Soft to palpation Auscultation: normal bowel sounds General: Yes no CVA tenderness Back/Spine/Pelvis Back: no CVA tenderness Skin General skin exam: no rashes or lesions noted Neuro General: patient oriented x3 and moves all extremities Extrem General: Yes no pedal edema Results Reviewed Nephrology Results: Hgb, (14.0-18.0) 13.5 g/dl L 02/14/25 WBC, (4.8-10.8) 7.6 X10*3/uL 02/14/25 Plt Count, (160-400) 320 X10*3/uL 02/14/25 Sodium, (135-145) 140 mmol/L 02/14/25 Potassium, (3.3-5.1) 4.1 mmol/L 02/14/25 Chloride, (96-108) 108 mmol/L 02/14/25 Carbon Dioxide, (22-29) 23 mmol/L 02/14/25 BUN, (9-16) 18 mg/dL H 02/14/25 Creatinine, (0.5-1.4) 1.89 mg/dL H 02/14/25 Calcium, (8.4-10.2) 9.2 mg/dL 02/14/25 Phosphorus, (2.7-4.5) 2.8 mg/dL 02/14/25 PTH Intact, (8.7-77.1) 103.5 pg/mL H 10/23/24 Urine Protein, (Neg-Trace) Negative mg/dL 02/14/25 Urine Creatinine 54.24 mg/dL 02/14/25 Protein/Creatinin Ratio TNP 02/14/25 Assessment & Plan Assessment & Plan (1) CKD stage 3a, GFR 45-59 ml/min: Code(s): N18.31 - Chronic kidney disease, stage 3a Category: Medical (2) Hypomagnesemia: Code(s): E83.42 - Hypomagnesemia Category: Medical (3) Renal transplant recipient: Code(s): Z94.0 - Kidney transplant status Category: Surgical (4) Essential (primary) hypertension: Code(s): I10 - Essential (primary) hypertension Category: Medical Plan Bobo was seen in follow up of his renal transplant. 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 He had 0 panel reactive antibodies. Induction was done using Thymoglobulin. He had no delayed graft function and did not require renal replacement therapy. CMV status of the donor was positive and he was positive as well. EBV status of the donor and recipient were positive. Hepatitis-C core antibody for the donor and recipient were negative. His BK virus PCR in the serum and urine were negative. His JJ stent postoperatively was removed on 06/19/2023. He had a prospera protocol on 08 of August which showed decreased risk for rejection. He also had a transplant biopsy on June for a creatinine of all than 2 which was negative for rejection. He has no history of DSA. He has been on Envarsus and mycophenolate. His Mycelex was discontinued on 06/01/2023 after he was started on ketoconazole. He was on Bactrim and Valcyte which was discontinued on 11/10/2023. He does not have any tremor. He denies urinary symptoms, edema, tremor. He is compliant with his medications. His serum creatinine is stable. F/U labs ordered Orders: Orders Complete Blood Count Auto Diff 2 Months E83.42 - Hypomagnesemia, I10 - Essential (primary) hypertension, N18.31 - Chronic kidney disease, stage 3a, Z94.0 - Kidney transplant status Electrolytes 2 Months E83.42 - Hypomagnesemia, I10 - Essential (primary) hypertension, N18.31 - Chronic kidney disease, stage 3a, Z94.0 - Kidney transplant status Calcium 2 Months E83.42 - Hypomagnesemia, I10 - Essential (primary) hypertension, N18.31 - Chronic kidney disease, stage 3a, Z94.0 - Kidney transplant status Phosphorus 2 Months E83.42 - Hypomagnesemia, I10 - Essential (primary) hypertension, N18.31 - Chronic kidney disease, stage 3a, Z94.0 - Kidney transplant status Magnesium 2 Months E83.42 - Hypomagnesemia, I10 - Essential (primary) hypertension, N18.31 - Chronic kidney disease, stage 3a, Z94.0 - Kidney transplant status Alanine Aminotransferase 2 Months E83.42 - Hypomagnesemia, I10 - Essential (primary) hypertension, N18.31 - Chronic kidney disease, stage 3a, Z94.0 - Kidney transplant status Parathyroid Hormone Intact 2 Months E83.42 - Hypomagnesemia, I10 - Essential (primary) hypertension, N18.31 - Chronic kidney disease, stage 3a, Z94.0 - Kidney transplant status Creatinine 2 Months E83.42 - Hypomagnesemia, I10 - Essential (primary) hypertension, N18.31 - Chronic kidney disease, stage 3a, Z94.0 - Kidney transplant status Blood Urea Nitrogen 2 Months E83.42 - Hypomagnesemia, I10 - Essential (primary) hypertension, N18.31 - Chronic kidney disease, stage 3a, Z94.0 - Kidney transplant status Aspartate Amino Transferase 2 Months E83.42 - Hypomagnesemia, I10 - Essential (primary) hypertension, N18.31 - Chronic kidney disease, stage 3a, Z94.0 - Kidney transplant status Tacrolimus Prograf 2 Months Z94.0 - Kidney transplant status Lipid Panel Today Z94.0 - Kidney transplant status Medications: New montelukast (Singulair) 10 mg PO DAILY 90 tabs 4RF Changed From tacrolimus XR 3 mg PO DAILY To tacrolimus XR 3 mg (3 x 1 mg) PO DAILY 270 tabs 4RF 90 days Refilled metoprolol succinate ER 100 mg PO DAILY 90 tabs 5RF ketoconazole 200 mg PO DAILY 90 tabs 5RF 90 days sodium bicarbonate 1,300 mg (2 x 650 mg) PO BID 120 tabs 3RF mycophenolate sodium (Myfortic) 540 mg (3 x 180 mg) PO BID 540 tabs 11RF 90 days Coding Level of Care Code Est Pt Level 4 (83624) Diagnoses CKD stage 3a, GFR 45-59 ml/min N18.31 Hypomagnesemia E83.42 Renal transplant recipient Z94.0 Essential (primary) hypertension I10
[2025-02-18 14:16] VITALS: BP 116/70; PULSE 105; O2SAT 96; BMI 30.9
--- OUTSIDE RECORDS SUMMARY | 2025-02-18 16:57 | XMS_ITS | Encounter Summary ---
Author Organization [facility] Address [address] [place] [address] Phone Care Team Providers Care Nurse Healthcare Manager Name Role Phone Timothy Barron MD Primary Care Provider Encounter Details Date Type Department Care Team (Late st Contact Info) Description 07/17/2018 Procedure Pass [facility] [address] [place] [address] Social History Tobacco Use Types Packs/Day Years [...] on filedocumented in this encounter Care Teams Nurse Healthcare Manager Relationship Specialty Start Date End Date Timothy Barron MD PCP - General Internal Medicine 06/14/16 documented as of this encounter Additional Source Comments The information contained in this document represents components of the legal health record. It is not the complete legal health record.[facility]
--- OUTSIDE RECORDS SUMMARY | 2025-02-18 16:57 | XMS_ITS | Clinical Summary ---
Author Organization [employer] [facility] Address [facility] [employer] [facility] [address] [place] [address] Phone Care Team Providers Care Cordwood Cutter Name Role Phone Timothy Barron MD Primary [...] PPO CIGNA PPO CIGNA PPO Care Teams Cordwood Cutter Relationship Specialty Start Date End Date Timothy Barron MD PCP - General Internal Medicine 06/14/16 Additional Source Comments The information contained in this document represents components of the legal health record. It is not the complete legal health record.[facility]
--- OUTSIDE RECORDS SUMMARY | 2025-02-18 16:57 | XMS_ITS | Clinical Summary ---
Author Organization [facility] Address [address] [place] [address] Care Team Providers Care Cafeteria Manager Name Role Phone Timothy Barron MD [...] 100 mg by mouth daily. 0 Active [place]-3 Fatty Acids (FISH OIL OMEGA-3) 1000 MG [...] Advance Directives For more information, please contact: [phone] Latest Code Status on File Code Status [...] following way: discussion with patient. Care Teams Cafeteria Manager Relationship Specialty Start Date End Date Timothy Barron MD PCP - General Internal Medicine 09/04/17
--- OUTSIDE RECORDS SUMMARY | 2025-02-18 16:57 | XMS_ITS | Clinical Summary ---
Author Organization [facility] Address [address] [place] [address] Care Team Providers Care Manager Client Name Role Phone Timothy Barron MD Primary Care Provider [phone] Allergies Active Allergy Reactions Criticality Noted Date [...] topic Insurance CROSS CT PPO Care Teams Manager Client Relationship Specialty Start Date End Date Timothy Barron MD [address] [place] [address] PCP - General Internal Medicine 11/22/18
--- OUTSIDE RECORDS SUMMARY | 2025-02-18 16:57 | XMS_ITS | Clinical Summary ---
Author Organization [facility] Address [address] [place] [address] Phone Care Team Providers Care Chili Maker Name Role Phone Timothy Barron MD Primary Care Provider [phone] Allergies Active Allergy Reactions Criticality Noted Date [...] UPPER ENDOSCOPY-EGD; Surgeon: Evan Harrington MD; Location: [facility]; Service: Gastroenterology; Laterality: N/A; COLONOSCOPY 03/08/2019 N/A PROCEDURE:COLONOSCOPY;COMMENT :Procedure: COLONOSCOPY; Surgeon: Evan Harrington MD; Location: [facility] END[facility]; Service: Gastroenterology; Laterality: N/A; Medical [...] 1981 Zoster Vaccines (1 of 2) 1981 RSV Immunization Adult Patients (1 - Risk 50-74 years 1-dose series) 2012 HIV Screening 04/05/2022 Hepatitis C Screening 04/05/2022 Social Influencers of Health Screening 04/05/2022 Cholesterol Screening (Lipid Panel) 01/31/2023 01/31/2018 Hypertension/CHF/CAD Annual BMP Blood Test 05/16/2023 03/28/2020, 03/28/2020, 11/14/2018, Additional history exists Depression Screening 05/08/2024 COVID-19 Vaccine ( - season) 2025 10/14/2021, 08/02/2020 Influenza Vaccine [...] [employer] BLUE CROSS - IN (ANTHEM) Care Teams Chili Maker Relationship Specialty Start Date End Date Timothy Barron MD [address] [facility] [address] [place], [place] PCP - General Internal Medicine 09/04/17
== END 2025-02-18 14:40 | disposition home or self-care (01) ==
LOC: HO.HKAS 13:59
PROVIDERS: PCP Internal Medicine; Visit Provider Internal Medicine Nephrology
DX: N18.31 Chronic kidney disease, stage 3a (principal); E83.42 Hypomagnesemia; Z94.0 Kidney transplant status; I10 Essential (primary) hypertension
CPT/HCPCS: 99214

== ENCOUNTER 2025-04-18 12:01 | Outpatient (REF) | payer BC, SELFPAY ==
[2025-04-18 14:06] LABS: MANUAL DIFF FLAG NO
[2025-04-18 14:25] LABS: Hematocrit 41.9 % (42.0-52.0); Hemoglobin 13.1 g/dl (14.0-18.0); Imm Gran Abs Auto 0.03 X10*3/uL (0.00-0.03); Imm Gran Pct Auto 0.4 % (0.0-0.4); Lymphocytes Absolute Auto 1.7 X10*3/uL (1.2-4.9); Mean Corpuscular HGB Conc 31.3 g/dl (31.0-36.0); Mean Corpuscular Hemoglobin 25.1 pg (27.0-33.0); Mean Corpuscular Volume 80.3 fL (80.0-98.0); NRBC Abs Auto 0.000 X10*3/uL (0.0-0.012); NRBC Pct Auto 0.0 /100WBC (0.0-0.2); Platelet Count 341 X10*3/uL (160-400); Red Blood Count 5.22 X10*6/uL (4.60-5.80); White Blood Count 6.8 X10*3/uL (4.8-10.8)
[2025-04-18 14:29] LABS: Alanine Aminotransferase 19 U/L (0-40); Anion Gap 13 (12-20); Aspartate Amino Transferase 16 U/L (5-37); Blood Urea Nitrogen 26 mg/dL (9-16); Calcium 9.3 mg/dL (8.4-10.2); Carbon Dioxide 24 mmol/L (22-29); Chloride 108 mmol/L (96-108); Estimated Glomerular Filt Rate 31; Magnesium 2.0 mg/dL (1.6-2.6); Potassium 4.3 mmol/L (3.3-5.1); Sodium 141 mmol/L (135-145)
[2025-04-18 15:10] LABS: Parathyroid Hormone Intact 177.7 pg/mL (8.7-77.1)
--- OUTSIDE RECORDS SUMMARY | 2025-04-18 17:19 | XMS_ITS | Clinical Summary ---
Author Organization [employer] [facility] Prior to 10/05/24 Address [address] [place] [address] Care Team Providers Care Agriculture Manager Name Role Phone Timothy Barron MD [...] 100 mg by mouth daily. 0 Active [place]-3 Fatty Acids (FISH OIL OMEGA-3) 1000 MG [...] Advance Directives For more information, please contact: [phone] Latest Code Status on File Code Status [...] following way: discussion with patient. Care Teams Agriculture Manager Relationship Specialty Start Date End Date Timothy Barron MD PCP - General Internal Medicine 09/04/17
--- OUTSIDE RECORDS SUMMARY | 2025-04-18 17:19 | XMS_ITS | Encounter Summary ---
Author Organization [facility] Address [address] [place] [address] Phone Care Team Providers Care Duplicator Punch Operator Name Role Phone Timothy Barron MD Primary Care Provider Encounter Details Date Type Department Care Team (Late st Contact Info) Description 07/17/2018 Procedure Pass [facility] Imaging [address] [place] [address] Social History Tobacco Use Types Packs/Day Years [...] on filedocumented in this encounter Care Teams Duplicator Punch Operator Relationship Specialty Start Date End Date Timothy Barron MD PCP - General Internal Medicine 06/14/16 documented as of this encounter Additional Source Comments The information contained in this document represents components of the legal health record. It is not the complete legal health record.[facility]
--- OUTSIDE RECORDS SUMMARY | 2025-04-18 17:20 | XMS_ITS | Clinical Summary ---
Author Organization [facility] Address [address] [place] [address] Phone Care Team Providers Care Business Services Intern Name Role Phone Timothy Barron MD Primary Care Provider [phone] Allergies Active Allergy Reactions Criticality Noted Date [...] each day 135 tablet 3 1 Active [place]-3 Fatty Acids (Fish Oil) 1000 MG capsule [...] Screening: Sigmoidoscopy 11/07/2011 Influenza Vaccine (#1) 2025 03/28/2022 Hepatitis B Vaccine Aged Out No longe r eligible based on patient's age to complete this topic Insurance CT Care Teams Business Services Intern Relationship Specialty Start Date End Date Timothy Barron MD [address] [facility] [address] [place] [address] PCP - General 05/18/20
--- OUTSIDE RECORDS SUMMARY | 2025-04-18 17:20 | XMS_ITS | Clinical Summary ---
Author Organization [facility] Address [address] [place] [address] Care Team Providers Care Solar Sales Associate Name Role Phone Timothy Barron MD Primary Care Provider [phone] Allergies Active Allergy Reactions Criticality Noted Date [...] Zoster (Shingles) Vaccine (1 of 2) 1981 RSV Vaccine 50 years and older and Patients (1 - Risk 50-74 years 1-dose series) 2012 COVID-19 Vaccine (2 - Jansse n risk series) 08/30/2020 08/02/2020 Influenza Vaccine 12/06/2024 03/28/2022 Colonoscopy 04/18/2029 04/18/2024 (Previously Completed), 03/08/2019 Hepatitis B Vaccines Aged Out No long er eligible based on patient's age to complete this topic Insurance CT PPO Care Teams Solar Sales Associate Relationship Specialty Start Date End Date Timotyh Barron MD [address] [place] [address] PCP - General Internal Medicine 11/22/18
--- OUTSIDE RECORDS SUMMARY | 2025-04-18 17:20 | XMS_ITS | Clinical Summary ---
Author Organization [employer] [facility] Address [facility] [employer] [facility] [address] [place] [address] Phone Care Team Providers Care Panel Installer Name Role Phone Timothy Barron MD Primary [...] PPO CIGNA PPO CIGNA PPO Care Teams Panel Installer Relationship Specialty Start Date End Date Timothy Barron MD PCP - General Internal Medicine 06/14/16 Additional Source Comments The information contained in this document represents components of the legal health record. It is not the complete legal health record.[facility]
--- OUTSIDE RECORDS SUMMARY | 2025-04-18 17:20 | XMS_ITS | Clinical Summary ---
Author Organization [facility] Address [address] [place] [address] Phone Care Team Providers Care Box Annealer Name Role Phone Timothy Barron MD Primary Care Provider [phone] Allergies Active Allergy Reactions Criticality Noted Date [...] UPPER ENDOSCOPY-EGD; Surgeon: Evan Harrington MD; Location: [facility] END[facility]COPY; Service: Gastroenterology; Laterality: N/A; COLONOSCOPY 03/08/2019 N/A PROCEDURE:COLONOSCOPY;COMMENT :Procedure: COLONOSCOPY; Surgeon: Evan Harrington MD; Location: [facility] END[facility]; Service: Gastroenterology; Laterality: N/A; [...] Orientation Straight 06/21/2024 6: 43 PM EST Last Filed Vital Signs Vital Sign Reading [...] exists Depression Screening 05/08/2024 COVID-19 Vaccine ( season) 2025 10/14/2021, 08/02/2020 Influenza Vaccine (#1) [...] BLUE CROSS - IN (ANTHEM) Care Teams Box Annealer Relationship Specialty Start Date End Date Timothy Barron MD [address] [facility] [address] [place], [place] PCP - General Internal Medicine 09/04/17
[2025-04-19 06:23] LABS: Tacrolimus Prograf 4.1 mcg/L
== END 2025-04-18 12:02 | disposition home or self-care (01) ==
LOC: HO.HKASLDS 12:01
PROVIDERS: PCP Internal Medicine; Visit Provider Internal Medicine Nephrology
DX: I12.9 Hypertensive chronic kidney disease with stage 1 through stage 4 chronic kidney disease, or unspecified chronic kidney disease (principal); N18.31 Chronic kidney disease, stage 3a; E83.42 Hypomagnesemia; Z94.0 Kidney transplant status
CPT/HCPCS: 36415; 80051; 80197; 82310; 82565; 83735; 83970; 84100; 84450; 84460; 84520; 85025

== ENCOUNTER 2025-04-22 14:20 | Outpatient (AMB) | payer BC, SELFPAY ==
--- NOTE | 2025-04-22 14:47 | HO.NEPHOV ---
Vital Signs 04/22/25 14:50 Height 6 ft Weight 224 lb 6 oz BMI 30.4 BP 110/70 Blood Pressure Location Lt brachial Position Sitting Pulse 93 Pulse Source Pulse Oximeter Pulse Oximetry (%) 96 Oxygen Delivery Method Room Air Intake Visit Reasons: 2 mo follow up-[facility] [place] Manager Of Regulatory Affairs Required: No Accompanied by: Spouse Allergies Sulfa (Sulfonamide Antibiotics) Allergy (Verified 04/22/25 14:50) Hives lisinopril Allergy (Uncoded 12/20/23 10:58) Swelling HPI Comments Details: Bobo was seen in follow up of his renal transplant. 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 He had 0 panel reactive antibodies. Induction was done using Thymoglobulin. He had no delayed graft function and did not require renal replacement therapy. CMV status of the donor was positive and he was positive as well. EBV status of the donor and recipient were positive. Hepatitis-C core antibody for the donor and recipient were negative. His BK virus PCR in the serum and urine were negative. His JJ stent postoperatively was removed on 06/19/2023. He had a prospera protocol on 08 of August which showed decreased risk for rejection. He also had a transplant biopsy on 26 of June for a creatinine of all than 2 which was negative for rejection. He has no history of DSA. He has been on Envarsus and mycophenolate. His Mycelex was discontinued on 06/01/2023 after he was started on ketoconazole. He was on Bactrim and Valcyte which was discontinued on 11/10/2023. He does not have any tremor. He denies urinary symptoms, edema, tremor. He is compliant with his medications. His serum creatinine has improved to 2.15 [facility] Medical History Essential (primary) hypertension Chronic kidney disease, stage 5 Surgical History Kidney transplanted Social History Alcohol intake: never Patient Tobacco Use Status: Never used Tobacco Current occupation: rt handed Review of Systems Const All systems reviewed & are unremarkable except as noted in HPI and below Physical Exam Vital Signs: Last Vital Signs Pulse 93 12/16/25 14:50 BP 110/70 04/22/25 14:50 Pulse Ox 96 04/22/25 14:50 Oxygen Delivery Method Room Air 04/22/25 14:50 BMI result Body Mass Index 30.4 Const General: comfortable and no acute distress Orientation/consciousness: patient oriented x3 HEENT Head: Yes normocephalic Mouth: Normal oral and palatal mucosa present Eyes EOM: EOMs intact bilaterally Neck Neck: Yes supple Resp Auscultation: clear to auscultation bilaterally Cardio Jugular venous distension: no JVD Rate: regular rate GI Palpation (GI): Soft to palpation Auscultation: normal bowel sounds General: Yes no CVA tenderness Back/Spine/Pelvis Back: no CVA tenderness Skin General skin exam: no rashes or lesions noted Neuro General: patient oriented x3 and moves all extremities Extrem General: Yes no pedal edema Results Reviewed Nephrology Results: Hgb, (14.0-18.0) 13.1 g/dl L 04/18/25 WBC, (4.8-10.8) 6.8 X10*3/uL 04/18/25 Plt Count, (160-400) 341 X10*3/uL 04/18/25 Sodium, (135-145) 141 mmol/L 04/18/25 Potassium, (3.3-5.1) 4.3 mmol/L 04/18/25 Chloride, (96-108) 108 mmol/L 04/18/25 Carbon Dioxide, (22-29) 24 mmol/L 04/18/25 BUN, (9-16) 26 mg/dL H 04/18/25 Creatinine, (0.5-1.4) 2.15 mg/dL H 04/18/25 Calcium, (8.4-10.2) 9.3 mg/dL 04/18/25 Phosphorus, (2.7-4.5) 2.3 mg/dL L 04/18/25 PTH Intact, (8.7-77.1) 177.7 pg/mL H 04/18/25 Urine Protein, (Neg-Trace) Negative mg/dL 02/14/25 Urine Creatinine 54.24 mg/dL 02/14/25 Protein/Creatinin Ratio TNP 02/14/25 Assessment & Plan Assessment & Plan (1) CKD stage 3a, GFR 45-59 ml/min: Code(s): N18.31 - Chronic kidney disease, stage 3a Category: Medical (2) Renal transplant recipient: Code(s): Z94.0 - Kidney transplant status Category: Surgical (3) Essential (primary) hypertension: Code(s): I10 - Essential (primary) hypertension Category: Medical (4) Hypomagnesemia: Code(s): E83.42 - Hypomagnesemia Category: Medical Plan Bobo was seen in follow up of his renal transplant. 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 He had 0 panel reactive antibodies. Induction was done using Thymoglobulin. He had no delayed graft function and did not require renal replacement therapy. CMV status of the donor was positive and he was positive as well. EBV status of the donor and recipient were positive. Hepatitis-C core antibody for the donor and recipient were negative. His BK virus PCR in the serum and urine were negative. His JJ stent postoperatively was removed on 06/19/2023. He had a prospera protocol on 08 of August which showed decreased risk for rejection. He also had a transplant biopsy on June for a creatinine of all than 2 which was negative for rejection. He has no history of DSA. He has been on Envarsus and mycophenolate. His Mycelex was discontinued on 06/01/2023 after he was started on ketoconazole. He was on Bactrim and Valcyte which was discontinued on 11/10/2023. He does not have any tremor. He denies urinary symptoms, edema, tremor. He is compliant with his medications. His serum creatinine is stable. F/U labs ordered Orders: Orders Electrolytes 2 Months E83.42 - Hypomagnesemia, I10 - Essential (primary) hypertension, N18.31 - Chronic kidney disease, stage 3a, Z94.0 - Kidney transplant status Blood Urea Nitrogen 2 Months E83.42 - Hypomagnesemia, I10 - Essential (primary) hypertension, N18.31 - Chronic kidney disease, stage 3a, Z94.0 - Kidney transplant status Phosphorus 2 Months E83.42 - Hypomagnesemia, I10 - Essential (primary) hypertension, N18.31 - Chronic kidney disease, stage 3a, Z94.0 - Kidney transplant status Complete Blood Count Auto Diff 2 Months E83.42 - Hypomagnesemia, I10 - Essential (primary) hypertension, N18.31 - Chronic kidney disease, stage 3a, Z94.0 - Kidney transplant status Tacrolimus Prograf 2 Months E83.42 - Hypomagnesemia, I10 - Essential (primary) hypertension, N18.31 - Chronic kidney disease, stage 3a, Z94.0 - Kidney transplant status Aspartate Amino Transferase 2 Months E83.42 - Hypomagnesemia, I10 - Essential (primary) hypertension, N18.31 - Chronic kidney disease, stage 3a, Z94.0 - Kidney transplant status Alanine Aminotransferase 2 Months E83.42 - Hypomagnesemia, I10 - Essential (primary) hypertension, N18.31 - Chronic kidney disease, stage 3a, Z94.0 - Kidney transplant status Tacrolimus Prograf 2 Weeks E83.42 - Hypomagnesemia, I10 - Essential (primary) hypertension, N18.31 - Chronic kidney disease, stage 3a, Z94.0 - Kidney transplant status Creatinine 2 Weeks E83.42 - Hypomagnesemia, I10 - Essential (primary) hypertension, N18.31 - Chronic kidney disease, stage 3a, Z94.0 - Kidney transplant status Calcium 2 Months E83.42 - Hypomagnesemia, I10 - Essential (primary) hypertension, N18.31 - Chronic kidney disease, stage 3a, Z94.0 - Kidney transplant status Creatinine 2 Months E83.42 - Hypomagnesemia, I10 - Essential (primary) hypertension, N18.31 - Chronic kidney disease, stage 3a, Z94.0 - Kidney transplant status Magnesium 2 Months E83.42 - Hypomagnesemia, I10 - Essential (primary) hypertension, N18.31 - Chronic kidney disease, stage 3a, Z94.0 - Kidney transplant status Electrolytes 2 Weeks E83.42 - Hypomagnesemia, I10 - Essential (primary) hypertension, N18.31 - Chronic kidney disease, stage 3a, Z94.0 - Kidney transplant status Blood Urea Nitrogen 2 Weeks E83.42 - Hypomagnesemia, I10 - Essential (primary) hypertension, N18.31 - Chronic kidney disease, stage 3a, Z94.0 - Kidney transplant status Coding Level of Care Code Est Pt Level 4 (97199) Diagnoses CKD stage 3a, GFR 45-59 ml/min N18.31 Renal transplant recipient Z94.0 Essential (primary) hypertension I10 Hypomagnesemia E83.42
[2025-04-22 14:50] VITALS: BP 110/70; PULSE 93; O2SAT 96; BMI 30.4
--- OUTSIDE RECORDS SUMMARY | 2025-04-22 18:36 | XMS_ITS | Clinical Summary ---
Author Organization [facility] Address [address] [place] [address] Care Team Providers Care Postal Mail Carrier Name Role Phone Timothy Barron MD Primary Care Provider [phone] Allergies Active Allergy Reactions Criticality Noted Date [...] this topic Insurance [place] PPO Care Teams Postal Mail Carrier Relationship Specialty Start Date End Date Timothy Barron MD [address] [place] [address] PCP - General Internal Medicine 11/22/18
--- OUTSIDE RECORDS SUMMARY | 2025-04-22 18:36 | XMS_ITS | Encounter Summary ---
Author Organization [facility] Address [address] [place] [address] Phone Care Team Providers Care Auto Body Repairer Name Role Phone Timothy Barron MD Primary Care Provider Encounter Details Date Type Department Care Team (Late st Contact Info) Description 07/17/2018 Procedure Pass [facility] [address] [place] [address] Social History Tobacco Use Types Packs/Day Years [...] on filedocumented in this encounter Care Teams Auto Body Repairer Relationship Specialty Start Date End Date Timothy Barron MD PCP - General Internal Medicine 06/14/16 documented as of this encounter Additional Source Comments The information contained in this document represents components of the legal health record. It is not the complete legal health record.[facility]
--- OUTSIDE RECORDS SUMMARY | 2025-04-22 18:36 | XMS_ITS | Clinical Summary ---
Author Organization [facility] Address [address] [place] [address] Phone Care Team Providers Care English Composition Instructor Name Role Phone Timothy Barron MD Primary [...] UPPER ENDOSCOPY-EGD; Surgeon: Evan Harrington MD; Location: [facility] END[facility]COPY; Service: Gastroenterology; Laterality: N/A; COLONOSCOPY 03/08/2019 N/A PROCEDURE:COLONOSCOPY;COMMENT :Procedure: COLONOSCOPY; Surgeon: Evan Harrington MD; Location: [facility] ENDOSCOPY; Service: Gastroenterology; Laterality: N/A; [...] BLUE CROSS - IN (ANTHEM) Care Teams English Composition Instructor Relationship Specialty Start Date End Date Timothy Barron MD [address] [facility] [address] [place], [place] PCP - General Internal Medicine 09/04/17
--- OUTSIDE RECORDS SUMMARY | 2025-04-22 18:36 | XMS_ITS | Clinical Summary ---
Author Organization [employer] [facility] Prior to 10/05/24 Address [address] [place] [address] Care Team Providers Care Student Records Specialist Name Role Phone Timothy Barron MD Primary [...] 100 mg by mouth daily. 0 Active [place]-3 Fatty Acids (FISH OIL OMEGA-3) 1000 MG [...] Advance Directives For more information, please contact: [phone] Latest Code Status on File Code Status [...] following way: discussion with patient. Care Teams Student Records Specialist Relationship Specialty Start Date End Date Timothy Barron MD PCP - General Internal Medicine 09/04/17
--- OUTSIDE RECORDS SUMMARY | 2025-04-22 18:36 | XMS_ITS | Clinical Summary ---
Author Organization [employer] [facility] Address [facility] [address] [place] [address] Phone Care Team Providers Care Anesthesiologists' Assistant Name Role Phone Timothy Barron MD Primary [...] PPO CIGNA PPO CIGNA PPO Care Teams Anesthesiologists' Assistant Relationship Specialty Start Date End Date Timothy Braron MD PCP - General Internal Medicine 06/14/16 Additional Source Comments The information contained in this document represents components of the legal health record. It is not the complete legal health record.[facility]
== END 2025-04-22 15:18 | disposition home or self-care (01) ==
LOC: HO.HKAS 14:20
PROVIDERS: PCP Internal Medicine; Visit Provider Internal Medicine Nephrology
DX: N18.31 Chronic kidney disease, stage 3a (principal); Z94.0 Kidney transplant status; I10 Essential (primary) hypertension; E83.42 Hypomagnesemia
CPT/HCPCS: 99214

== ENCOUNTER 2025-04-29 09:54 | Outpatient (REF) | payer BC, SELFPAY ==
--- OUTSIDE RECORDS SUMMARY | 2025-04-29 10:46 | XMS_ITS | Clinical Summary ---
Author Organization [facility] Address [address] [place] [address] Phone Care Team Providers Care Liquefaction Plant Operator Name Role Phone Timothy Barron MD [...] UPPER ENDOSCOPY-EGD; Surgeon: Evan Harrington MD; Location: [facility] END[facility]COPY; Service: Gastroenterology; Laterality: N/A; COLONOSCOPY 03/08/2019 N/A PROCEDURE:COLONOSCOPY;COMMENT :Procedure: COLONOSCOPY; Surgeon: Evan Harrington MD; Location: [facility] END[facility]COPY; Service: Gastroenterology; Laterality: N/A; [...] BLUE CROSS - IN (ANTHEM) Care Teams Liquefaction Plant Operator Relationship Specialty Start Date End Date Timothy Barron MD [address] [facility] [address] [place], [place] PCP - General Internal Medicine 09/04/17
--- OUTSIDE RECORDS SUMMARY | 2025-04-29 10:46 | XMS_ITS | Clinical Summary ---
Author Organization [facility] Address [address] [place] [address] Phone Care Team Providers Care Home Administrator Name Role Phone Timothy Barron MD Primary Care Provider [phone] Allergies Active Allergy Reactions Criticality Noted Date [...] each day 135 tablet 3 1 Active [place]-3 Fatty Acids (Fish Oil) 1000 MG capsule [...] complete this topic Insurance [place] Care Teams Home Administrator Relationship Specialty Start Date End Date Timothy Barron MD [address] [facility] [address] [place] [address] PCP - General 05/18/20
--- OUTSIDE RECORDS SUMMARY | 2025-04-29 10:46 | XMS_ITS | Encounter Summary ---
Author Organization [facility] Address [address] [place] [address] Phone Care Team Providers Care Barrel Rifler Hook Name Role Phone Timothy Barron MD Primary Care Provider Encounter Details Date Type Department Care Team (Late st Contact Info) Description 07/17/2018 Procedure Pass [facility] [address] [place] [address] Social History Tobacco Use Types Packs/Day Years [...] on filedocumented in this encounter Care Teams Barrel Rifler Hook Relationship Specialty Start Date End Date Timothy Barron MD PCP - General Internal Medicine 06/14/16 documented as of this encounter Additional Source Comments The information contained in this document represents components of the legal health record. It is not the complete legal health record.[facility]
--- OUTSIDE RECORDS SUMMARY | 2025-04-29 10:46 | XMS_ITS | Clinical Summary ---
Author Organization [facility] Address [address] [place] [address] Care Team Providers Care Floral Designer Salesperson Name Role Phone Timothy Barron MD Primary Care Provider [phone] Allergies Active Allergy Reactions Criticality Noted Date [...] this topic Insurance [place] PPO Care Teams Floral Designer Salesperson Relationship Specialty Start Date End Date Timothy Barron MD [address] [place] [address] PCP - General Internal Medicine 11/22/18
--- OUTSIDE RECORDS SUMMARY | 2025-04-29 10:46 | XMS_ITS | Clinical Summary ---
Author Organization [facility] Prior to 10/05/24 Address [address] [place] [address] Care Team Providers Care Operating Room Surgical Technician Name Role Phone Timothy Barron MD [...] 100 mg by mouth daily. 0 Active [place]-3 Fatty Acids (FISH OIL OMEGA-3) 1000 MG [...] Advance Directives For more information, please contact: [phone] Latest Code Status on File Code Status [...] following way: discussion with patient. Care Teams Operating Room Surgical Technician Relationship Specialty Start Date End Date Timothy Barron MD PCP - General Internal Medicine 09/04/17
--- OUTSIDE RECORDS SUMMARY | 2025-04-29 10:46 | XMS_ITS | Clinical Summary ---
Author Organization [employer] [facility] Address [facility] [employer] [facility] [address] [place] [address] Phone Care Team Providers Care Business Development Representative Name Role Phone Timothy Barron MD Primary [...] PPO CIGNA PPO CIGNA PPO Care Teams Business Development Representative Relationship Specialty Start Date End Date Timothy Barron MD PCP - General Internal Medicine 06/14/16 Additional Source Comments The information contained in this document represents components of the legal health record. It is not the complete legal health record.[facility]
[2025-04-29 14:14] LABS: Anion Gap 12 (12-20); Blood Urea Nitrogen 20 mg/dL (9-16); Carbon Dioxide 24 mmol/L (22-29); Chloride 110 mmol/L (96-108); Cholesterol 98 mg/dL (<200); Estimated Glomerular Filt Rate 33; HDL Cholesterol 24 mg/dL (>40); Potassium 4.1 mmol/L (3.3-5.1); Sodium 142 mmol/L (135-145); Triglycerides 93 mg/dL (<150)
[2025-04-30 06:58] LABS: Tacrolimus Prograf 6.0 mcg/L
== END 2025-04-29 09:55 ==
LOC: HO.HKASLDS 09:54
PROVIDERS: PCP Internal Medicine; Visit Provider Internal Medicine Nephrology
DX: I12.9 Hypertensive chronic kidney disease with stage 1 through stage 4 chronic kidney disease, or unspecified chronic kidney disease (principal); N18.31 Chronic kidney disease, stage 3a; E83.42 Hypomagnesemia; Z94.0 Kidney transplant status
CPT/HCPCS: 36415; 80051; 80061; 80197; 82565; 84520